=== PATIENT | male | born 1960 | race African-American/Black ===

== ENCOUNTER 2017-02-20 16:40 | Inpatient (IN) | payer OTHER ==
[2017-02-20 19:07] VITALS: BMI 29.1
--- NOTE | 2017-02-20 19:49 | HP ---
COWS - Scale Resting Pulse: 2= [place] 101-120 Sweatin= Chills/Flushing Restless Observation: 3= Extraneous Movement Pupil Size: 0= Normal to Room Light Bone or Joint Aches: 2= Severe Diffuse Aches Runny Nose/ Eye Tearin= Runny Nose/Eyes GI Upset > 30mins: 2= Nausea/Diarrhea Tremor Observation: 2= Slight Tremor Visible Yawning Observation: 0= None Anxiety or Irritability: 2=Irritable/Anxious Goose Flesh Skin: 0=Smooth Skin COWS Score: 16 CIWA Score - CIWA Score Nausea/Vomitin-Mild Nausea/No Vomiting Muscle Tremors: 4-Moderate,w/Arms Extend Anxiety: 4-Mod. Anxious/Guarded Agitation: 4-Moderately Restless Paroxysmal Sweats: 1-Minimal Palms Moist Orientation: 1-Uncertain about Date Tacttile Disturbances: 0-None Auditory Disturbances: 0-None Visual Disturbances: 0-None Headache: 1-Very Mild CIWA-Ar Total Score: 16 Admission ROS BHS - HPI Chief Complaint: WITHDRAWAL SX Allergies/Adverse Reactions: Allergies Allergy/AdvReac Type Severity Reaction Status Date / Time No Known Allergies Allergy Verified 02/20/17 20:06 History of Present Illness: 56 YEARS OLD MALE WITH LONG HISTORY OF ALCOHOL OPIUM NICOTINE DEPENDENCE LEFT KNEE SWELLING X "WEEKS" POSITIVE PPD DEPRESSION IS ADMITTED TO DETOX Exam Limitations: No Limitations - Ebola screening Have you traveled outside of the country in the last 21 days: No Have you had contact with anyone from an Ebola affected area: No Have you been sick,other than usual withdrawal symptoms: No Do you have a fever: No - Review of Systems Constitutional: Chills, Changes in sleep, Weight Stable EENT: reports: Blurred Vision (LEFT EYE "STROKE" 2009), Dental Problems ( DENTURE UPPER LOWER AT HOME) Respiratory: reports: No Symptoms reported Cardiac: reports: No Symptoms Reported GI: reports: Nausea, Poor Fluid Intake, Abdominal cramping : reports: No Symptoms Reported Musculoskeletal: reports: Joint Pain (LEFT KNEE) Integumentary: reports: Dryness Neuro: reports: Tremors Endocrine: reports: No Symptoms Reported Hematology: reports: No Symptoms Reported Psychiatric: reports: Judgement Intact, Orientated x3, Depressed Other Systems: Reviewed and Negative Patient History - Patient Medical History Hx Anemia: No Hx Asthma: No Hx Chronic Obstructive Pulmonary Disease (COPD): No Hx Cancer: No Hx Cardiac Disorders: No Hx Congestive Heart Failure: No Hx Hypertension: No Hx Hypercholesterolemia: No Hx Pacemaker: No HX Cerebrovascular Accident: No Hx Seizures: No Hx Dementia: No Hx Diabetes: No Hx Gastrointestinal Disorders: Yes Hx Liver Disease: No Hx Genitourinary Disorders: No Hx Sexually Transmitted Disorders: No Hx Renal Disease (ESRD): No Hx Thyroid Disease: No Hx Human Immunodeficiency Virus (HIV): No Hx Hepatitis C: No Hx Depression: Yes Hx Suicide Attempt: No Hx Bipolar Disorder: No Hx Schizophrenia: No - Patient Surgical History Past Surgical History: No - PPD History Previous Implant?: Yes Documented Results: Positive w/o proof Implanted On Prior [facility] Admission?: No PPD to be Administered?: No - Smoking Cessation Smoking history: Current every day smoker Have you smoked in the past 12 months: Yes Aproximately how many cigarettes per day: 10 Cigars Per Day: 0 Hx Chewing Tobacco Use: No Initiated information on smoking cessation: Yes 'Breaking Loose' booklet given: 02/20/17 - Substance & Tx. History Hx Alcohol Use: Yes Hx Substance Use: Yes Substance Use Type: Alcohol, Cocaine, Opiates Hx Substance Use Treatment: No - Substances Abused Alcohol Route: Oral Frequency: Daily Amount used: 24OZX7+64OZ VOLKA Age of first use: 24 Date of Last Use: 02/20/17 Heroin Route: Inhalation Frequency: Daily Amount used: 9 BAGS Age of first use: 23 Date of Last Use: 02/20/17 Family Disease History - Family Disease History Family Disease History: Heart Disease: Mother, [place]: Father (), Brother, Other: Father Admission Physical Exam S - Vital Signs Vital Signs: Vital Signs - 24 hr 02/20/17 19:03 Temperature 99.1 F Pulse Rate 102 H Respiratory 20 Rate Blood Pressure 164/90 - Physical General Appearance: Yes: Appropriately Dressed, Moderate Distress, Obese, Tremorous, Irritable, Sweating, Anxious HEENTM: Yes: Hearing grossly Normal, Normal ENT Inspection, Normocephalic, Normal Voice Respiratory: Yes: Chest Non-Tender, Lungs Clear, Normal Breath Sounds, No Respiratory Distress, No Accessory Muscle Use Neck: Yes: Supple, Trachea in good position Breast: Yes: Breasts Symetrical Cardiology: Yes: Regular Rhythm, S1, S2, Tachycardia Abdominal: Yes: Non Tender, Soft Genitourinary: Yes: Within Normal Limits Back: Yes: Normal Inspection Musculoskeletal: Yes: full range of Motion, Gait Steady, Back pain, Muscle Pain Extremities: Yes: Normal Inspection, Normal Range of Motion, Non-Tender, Tremors Neurological: Yes: Fully Oriented, Alert, Motor Strength 5/5, Normal Response, Depressed Affect Integumentary: Yes: Warm Lymphatic: Yes: Within Normal Limits - Diagnostic (1) Alcohol dependence with uncomplicated withdrawal Current Visit: Yes Status: Acute (2) Opioid dependence with withdrawal Current Visit: Yes Status: Acute (3) Nicotine dependence Current Visit: Yes Status: Acute Qualifiers: Nicotine product type: cigarettes Substance use status: in withdrawal Qualified Code(s): F17.213 - Nicotine dependence, cigarettes, with withdrawal (4) Positive PPD, treated Current Visit: Yes Status: Resolved (5) Dry skin dermatitis Current Visit: Yes Status: Chronic (6) Chronic pain of right knee Current Visit: Yes Status: Chronic (7) Depression (emotion) Current Visit: Yes Status: Suspected Qualifiers: Depression Type: dysthymia Qualified Code(s): F34.1 - Dysthymic disorder Cleared for Admission [facility] - Detox or Rehab [facility] Level of Care: Medically Managed Detox Regimen/Protocol: Methadone/Librium [facility] Breath Alcohol Content Breath Alcohol Content: 0 Urine Drug Screen - Results Drug Screen Negative: No Urine Drug Screen Results: ALBIN-Cocaine, OPI-Opiates, MTD-Methadone
[2017-02-20] MEDS ORDERED: guaiFENesin/D-METHORPHAN HB 10 ML UNIT-DOSE CUPS PO PRN (20:19)
[2017-02-20] MEDS ORDERED: ACETAMINOPHEN 325 MG TABLET (FP) PO PRN (20:19)
[2017-02-20] MEDS ORDERED: METHADONE HCL 10 MG TABLET (FOR DETOX USE ONLY) PO ONE ×2 (20:19→23:00)
[2017-02-20] MEDS ORDERED: NICOTINE POLACRILEX 2 MG GUM BUC PRN (20:19)
[2017-02-20] MEDS ORDERED: MENTHOL/PHENOL 1 EACH UD MM PRN (20:19)
[2017-02-20] MEDS ORDERED: P-EPHED 60MG/TRIPROLIDI 2.5MG TABLET PO PRN (20:19)
[2017-02-20] MEDS ORDERED: MAG HYDROX/AL HYDROX/SIMETH 30 ML UNIT-DOSE CUP PO PRN (20:19)
[2017-02-20] MEDS ORDERED: LOPERAMIDE HCL 2 MG CAPSULE PO PRN (20:19)
[2017-02-20] MEDS ORDERED: MAGNESIUM CITRATE 300 ML BOTTLE PO PRN (20:19)
[2017-02-20] MEDS ORDERED: MAGNESIUM HYDROX 2400MG/30ML ORAL SUSPENSION 30 ML CUP PO PRN (20:19)
[2017-02-20] MEDS ORDERED: COLLOIDAL OATMEAL 1 BAR EACH TP PRN (20:24)
[2017-02-20] MEDS: RANITIDINE HCL 150 MG TABLET (FP) PO SCH (22:02)
[2017-02-20] MEDS: THIAMINE HCL 100 MG TABLET (FP) PO SCH (22:02)
[2017-02-20] MEDS: diphenhydrAMINE HCL 50 MG CAPSULE PO PRN (22:03)
[2017-02-20] MEDS: chlordiazePOXIDE HCL 25 MG CAPSULE PO SCH (22:03)
[2017-02-20] MEDS: MINERAL OIL/PETROLAT/WATER TOPICAL CREAM 113 GM JAR TP SCH (23:05)
[2017-02-20] MEDS: CLOTRIMAZOLE 1% CREAM 15 GM TUBE TP SCH (23:05)
[2017-02-20 23:23] LABS: URINE APPEARANCE CLEAR; URINE BILIRUBIN NEGATIVE (NEGATIVE); URINE BLOOD NEGATIVE (NEGATIVE); URINE COLOR STRAW; URINE GLUCOSE (UA) NEGATIVE (NEGATIVE); URINE KETONE NEGATIVE (NEGATIVE); URINE LEUK ESTERASE NEGATIVE (NEGATIVE); URINE NITRITE NEGATIVE (NEGATIVE); URINE PROTEIN NEGATIVE (NEGATIVE); URINE UROBILINOGEN NEGATIVE E.U./dl (0.2-1.0)
[2017-02-21] MEDS: chlordiazePOXIDE HCL 25 MG CAPSULE PO SCH ×4 (05:38→22:42)
[2017-02-21 09:46] LABS: MCH 27.9 pg (25.7-33.7); MCHC 32.9 g/dl (32.0-35.9); MEAN CELL VOLUME 84.8 fl (80-96); MEAN PLT VOLUME 7.7 fl (7.5-11.1); PLATELET COUNT 301 K/MM3 (134-434); RDW 13.5 % (11.9-15.9); WHITE BLOOD COUNT 4.3 K/mm3 (4.0-10.0)
[2017-02-21 09:54] LABS: ALBUMIN 3.1 g/dl (3.4-5.0); ANION GAP 6 (8-16); BILIRUBIN,TOTAL 0.5 mg/dL (0.2-1.0); CALCIUM 8.7 mg/dL (8.5-10.1); CO2 31 mmol/L (21-32); CREATININE 0.8 mg/dL (0.7-1.3); GLUCOSE,RANDOM 80 mg/dL (74-106); SGOT/AST 19 U/L (15-37); SGPT/ALT 18 U/L (12-78); TOT PROT 6.5 g/dl (6.4-8.2)
[2017-02-21 09:55] LABS: ALK PHOS 103 U/L (45-117)
[2017-02-21] MEDS ORDERED: METHADONE HCL 10 MG TABLET (FOR DETOX USE ONLY) PO SCH (10:00)
[2017-02-21] MEDS: NICOTINE 14 MG/24 HOURS TOPICAL PATCH TD SCH (10:46)
[2017-02-21] MEDS: PRENATAL VITAMINS W/ FOLIC ACID TABLET (FP) PO SCH (10:46)
[2017-02-21] MEDS: RANITIDINE HCL 150 MG TABLET (FP) PO SCH ×2 (10:46→22:55)
--- NOTE | 2017-02-21 11:35 | PN ---
[facility] CIWA - CIWA Score Nausea/Vomitin Muscle Tremors: 3 Anxiety: 3 Agitation: 3 Paroxysmal Sweats: 1-Minimal Palms Moist Orientation: 0-Oriented Tacttile Disturbances: 1-Very Mild Itch/Numbness Auditory Disturbances: 1-Very Mild Visual Disturbances: 1-Very Mild Sensitivity Headache: 2-Mild CIWA-Ar Total Score: 18 [facility] COWS - Scale Resting Pulse: 1= [place] 81-100 Sweatin= Chills/Flushing Restless Observation: 3= Extraneous Movement Pupil Size: 1= Pupils >than Normal Bone or Joint Aches: 2= Severe Diffuse Aches Runny Nose/ Eye Tearin= Runny Nose/Eyes GI Upset > 30mins: 3= Vomiting/Diarrhea Tremor Observation of Outstretched Hands: 2= Slight Tremor Visible Yawning Observation: 1= 1-2x During Session Anxiety or Irritability: 2=Irritable/Anxious Goose Flesh Skin: 0=Smooth Skin COWS Score: 18 [facility] Progress Note (SOAP) Subjective: ALERT,IRRITABLE,ANXIOUS,INTERRUPTED SLEEP,TREMOR,PAIN IN THE BODY AND BACK Objective: 02/21/17 11:33 Vital Signs Temperature 96.1 F L 02/21/17 09:34 Pulse Rate 84 02/21/17 09:34 Respiratory Rate 18 02/21/17 09:34 Blood Pressure 145/79 02/21/17 09:34 O2 Sat by Pulse Oximetry (%) EKG NSR 02/21/17 11:33 Laboratory Last Values WBC 4.3 K/mm3 (4.0-10.0) 02/21/17 07:00 RBC 4.86 M/mm3 (4.00-5.60) 02/21/17 07:00 Hgb 13.6 GM/dL (11.7-16.9) 02/21/17 07:00 Hct 41.2 % (35.4-49) 02/21/17 07:00 MCV 84.8 fl (80-96) 02/21/17 07:00 MCHC 32.9 g/dl (32.0-35.9) 02/21/17 07:00 RDW 13.5 % (11.9-15.9) 02/21/17 07:00 Plt Count 301 K/MM3 (134-434) 02/21/17 07:00 MPV 7.7 fl (7.5-11.1) 02/21/17 07:00 Sodium 138 mmol/L (136-145) 02/21/17 07:00 Potassium 4.2 mmol/L (3.5-5.1) 02/21/17 07:00 Chloride 101 mmol/L (98-107) 02/21/17 07:00 Carbon Dioxide 31 mmol/L (21-32) 02/21/17 07:00 Anion Gap 6 (8-16) L 02/21/17 07:00 BUN 10 mg/dL (7-18) 02/21/17 07:00 Creatinine 0.8 mg/dL (0.7-1.3) 02/21/17 07:00 Creat Clearance w eGFR > 60 (>60) 02/21/17 07:00 Random Glucose 80 mg/dL (74-106) 02/21/17 07:00 Calcium 8.7 mg/dL (8.5-10.1) 02/21/17 07:00 Total Bilirubin 0.5 mg/dL (0.2-1.0) 02/21/17 07:00 AST 19 U/L (15-37) 02/21/17 07:00 ALT 18 U/L (12-78) 02/21/17 07:00 Alkaline Phosphatase 103 U/L (45-117) 02/21/17 07:00 Total Protein 6.5 g/dl (6.4-8.2) 02/21/17 07:00 Albumin 3.1 g/dl (3.4-5.0) L 02/21/17 07:00 Urine Color Straw 02/20/17 23:05 Urine Appearance Clear 02/20/17 23:05 Urine pH 7.0 (5.0-8.0) 02/20/17 23:05 Ur Specific [place] 1.015 (1.005-1.025) 02/20/17 23:05 Urine Protein Negative (NEGATIVE) 02/20/17 23:05 Urine Glucose (UA) Negative (NEGATIVE) 02/20/17 23:05 Urine Ketones Negative (NEGATIVE) 02/20/17 23:05 Urine Blood Negative (NEGATIVE) 02/20/17 23:05 Urine Nitrite Negative (NEGATIVE) 02/20/17 23:05 Urine Bilirubin Negative (NEGATIVE) 02/20/17 23:05 Urine Urobilinogen Negative E.U./dl (0.2-1.0) 02/20/17 23:05 Ur Leukocyte Esterase Negative (NEGATIVE) 02/20/17 23:05 Assessment: 02/21/17 11:34 WITHDRAWAL SYMPTOM Plan: CONTINUE DETOX
--- NOTE | 2017-02-21 14:46 | EKG ---
Test Reason : Blood Pressure : / mmHG Vent. Rate : 072 BPM Atrial Rate : 072 BPM P-R Int : 156 ms QRS Dur : 102 ms QT Int : 390 ms P-R-T Axes : 071 035 036 degrees QTc Int : 427 ms NORMAL SINUS RHYTHM POSSIBLE LEFT ATRIAL ENLARGEMENT BORDERLINE ECG NO PREVIOUS ECGS AVAILABLE Confirmed by DEVIKA CHAPA, ARABELLA ([id number]) on 02/21/2017 2:46:21 PM Referred By: Steven Cunningham Confirmed By:ARABELLA FORTUNE MD
[2017-02-21] MEDS: CLOTRIMAZOLE 1% CREAM 15 GM TUBE TP SCH ×2 (15:37→22:55)
[2017-02-21] MEDS ORDERED: ONDANSETRON *ODT* 4 MG TABLET SL ONE (18:15)
[2017-02-21] MEDS: CYCLOBENZAPRINE HCL 10 MG TABLET (FP) PO PRN (22:42)
[2017-02-21] MEDS: cloNIDine HCL 0.1 MG TABLET PO SCH (22:42)
[2017-02-21] MEDS: AMMONIUM LACTATE 12% LOTION 225 GM BOTTLE TP PRN (22:45)
[2017-02-21] MEDS: MINERAL OIL/PETROLAT/WATER TOPICAL CREAM 113 GM JAR TP SCH (22:45)
[2017-02-21] MEDS: THIAMINE HCL 100 MG TABLET (FP) PO SCH (22:55)
[2017-02-22] MEDS: diphenhydrAMINE HCL 50 MG CAPSULE PO PRN (02:03)
[2017-02-22] MEDS: chlordiazePOXIDE HCL 25 MG CAPSULE PO PRN ×2 (02:03→15:22)
[2017-02-22] MEDS: chlordiazePOXIDE HCL 25 MG CAPSULE PO SCH ×3 (06:18→16:55)
--- NOTE | 2017-02-22 09:09 | CONSULT ---
[facility] Psychiatric Consult - Data Date of interview: 02/22/17 Admission source: [facility] Identifying data: This is 56 years old male with psychiatric hospitalization history intoxicated with: Alcohol, Opioids and Nicotine Substance Abuse History: - Smoking Cessation. Smoking history: Current every day smoker. Have you smoked in the past 12 months: Yes. Aproximately how many cigarettes per day: 10. Cigars Per Day: 0. Hx Chewing Tobacco Use: No. Initiated information on smoking cessation: Yes. 'Breaking Loose' booklet given : 02/20/17. - Substance & Tx. History. Hx Alcohol Use: Yes. Hx Substance Use : Yes. Substance Use Type: Alcohol, Cocaine, Opiates. Hx Substance Use Treatment: No. - Substances Abused. Alcohol. Route: Oral. Frequency: Daily. Amount used: 24OZX7+64OZ VOLKA. Age of first use: 24. Date of Last Use : 02/20/17. Heroin. Route: Inhalation. Frequency: Daily. Amount used: 9 BAGS. Age of first use: 23. Date of Last Use: 02/20/17 Medical History: PPD+ history Psychiatric History: Patient reports history of depression with most recent psychiatric admission [facility], deniesa suicidal history, reports no medicatione taking prior to admission Physical/Sexual Abuse/Trauma History: Denies Additional Comment: Observation. Detox Unit Care Protocol Mental Status Exam - Mental Status Exam Alert and Oriented to: Person Cognitive Function: Fair Patient Appearance: Unkempt Mood: Sad Affect: Mood Congruent Patient Behavior: Cooperative Speech Pattern: Appropriate Voice Loudness: Mildly Soft/Quiet Thought Process: Circumstantial Thought Disorder: Being Controlled Hallucinations: Denies Suicidal Ideation: Denies Homicidal Ideation: Denies Insight/Judgement: Fair Sleep: Difficulty falling asleep Appetite: Fair Muscle strength/Tone: Mild Hypotonicity Gait/Station: Shuffling Additional Comments: Observation. Detox Unit Care Protocol Psychiatric Findings - Problem List ([place] 1, 2,3) (1) Alcohol dependence with uncomplicated withdrawal Current Visit: Yes Status: Acute (2) Nicotine dependence Current Visit: Yes Status: Acute Qualifiers: Nicotine product type: cigarettes Substance use status: in withdrawal Qualified Code(s): F17.213 - Nicotine dependence, cigarettes, with withdrawal (3) Opioid dependence with withdrawal Current Visit: Yes Status: Acute (4) Drug-induced mood disorder Current Visit: Yes Status: Acute - Initial Treatment Plan Initial Treatment Plan: Observation. Detox Unit Care Protocol
--- NOTE | 2017-02-22 09:50 | PN ---
[facility] CIWA - CIWA Score Nausea/Vomitin Muscle Tremors: 3 Anxiety: 2 Agitation: 2 Paroxysmal Sweats: 1-Minimal Palms Moist Orientation: 0-Oriented Tacttile Disturbances: 1-Very Mild Itch/Numbness Auditory Disturbances: 1-Very Mild Visual Disturbances: 1-Very Mild Sensitivity Headache: 2-Mild CIWA-Ar Total Score: 16 [facility]HS COWS - Scale Resting Pulse: 0= [place] 80 or Below Sweatin= Chills/Flushing Restless Observation: 3= Extraneous Movement Pupil Size: 1= Pupils >than Normal Bone or Joint Aches: 2= Severe Diffuse Aches Runny Nose/ Eye Tearin= Runny Nose/Eyes GI Upset > 30mins: 2= Nausea/Diarrhea Tremor Observation of Outstretched Hands: 2= Slight Tremor Visible Yawning Observation: 1= 1-2x During Session Anxiety or Irritability: 2=Irritable/Anxious Goose Flesh Skin: 0=Smooth Skin COWS Score: 16 [facility] Progress Note (SOAP) Subjective: ALERT,IRRITABLE,ANXIOUS,INTERRUPTED SLEEP,TREMOR,PAIN IN THE BODY AND BACK Objective: 02/22/17 09:49 Vital Signs Temperature 97.5 F L 02/22/17 09:43 Pulse Rate 82 02/22/17 09:43 Respiratory Rate 16 02/22/17 09:43 Blood Pressure 128/89 02/22/17 09:43 O2 Sat by Pulse Oximetry (%) Laboratory Last Values WBC 4.3 K/mm3 (4.0-10.0) 02/21/17 07:00 RBC 4.86 M/mm3 (4.00-5.60) 02/21/17 07:00 Hgb 13.6 GM/dL (11.7-16.9) 02/21/17 07:00 Hct 41.2 % (35.4-49) 02/21/17 07:00 MCV 84.8 fl (80-96) 02/21/17 07:00 MCHC 32.9 g/dl (32.0-35.9) 02/21/17 07:00 RDW 13.5 % (11.9-15.9) 02/21/17 07:00 Plt Count 301 K/MM3 (134-434) 02/21/17 07:00 MPV 7.7 fl (7.5-11.1) 02/21/17 07:00 Sodium 138 mmol/L (136-145) 02/21/17 07:00 Potassium 4.2 mmol/L (3.5-5.1) 02/21/17 07:00 Chloride 101 mmol/L (98-107) 02/21/17 07:00 Carbon Dioxide 31 mmol/L (21-32) 02/21/17 07:00 Anion Gap 6 (8-16) L 02/21/17 07:00 BUN 10 mg/dL (7-18) 02/21/17 07:00 Creatinine 0.8 mg/dL (0.7-1.3) 02/21/17 07:00 Creat Clearance w eGFR > 60 (>60) 02/21/17 07:00 Random Glucose 80 mg/dL (74-106) 02/21/17 07:00 Calcium 8.7 mg/dL (8.5-10.1) 02/21/17 07:00 Total Bilirubin 0.5 mg/dL (0.2-1.0) 02/21/17 07:00 AST 19 U/L (15-37) 02/21/17 07:00 ALT 18 U/L (12-78) 02/21/17 07:00 Alkaline Phosphatase 103 U/L (45-117) 02/21/17 07:00 Total Protein 6.5 g/dl (6.4-8.2) 02/21/17 07:00 Albumin 3.1 g/dl (3.4-5.0) L 02/21/17 07:00 Urine Color Straw 02/20/17 23:05 Urine Appearance Clear 02/20/17 23:05 Urine pH 7.0 (5.0-8.0) 02/20/17 23:05 Ur Specific [place] 1.015 (1.005-1.025) 02/20/17 23:05 Urine Protein Negative (NEGATIVE) 02/20/17 23:05 Urine Glucose (UA) Negative (NEGATIVE) 02/20/17 23:05 Urine Ketones Negative (NEGATIVE) 02/20/17 23:05 Urine Blood Negative (NEGATIVE) 02/20/17 23:05 Urine Nitrite Negative (NEGATIVE) 02/20/17 23:05 Urine Bilirubin Negative (NEGATIVE) 02/20/17 23:05 Urine Urobilinogen Negative E.U./dl (0.2-1.0) 02/20/17 23:05 Ur Leukocyte Esterase Negative (NEGATIVE) 02/20/17 23:05 RPR Titer Nonreactive (NONREACTIVE) 02/21/17 07:00 Hepatitis C Antibody 0.1 s/co ratio (0.0-0.9) 02/20/17 07:00 Assessment: 02/22/17 09:49 WITHDRAWAL SYMPTOM Plan: CONTINUE DETOX
[2017-02-22] MEDS ORDERED: METHADONE HCL 5 MG TABLET (FOR DETOX USE ONLY) PO SCH (10:00)
[2017-02-22] MEDS: cloNIDine HCL 0.1 MG TABLET PO SCH ×2 (10:51→23:09)
[2017-02-22] MEDS: PRENATAL VITAMINS W/ FOLIC ACID TABLET (FP) PO SCH (10:51)
[2017-02-22] MEDS: CYCLOBENZAPRINE HCL 10 MG TABLET (FP) PO PRN ×2 (10:52→23:09)
[2017-02-22] MEDS ORDERED: METHADONE HCL 5 MG TABLET (FOR DETOX USE ONLY) PO ONE (10:52)
[2017-02-22] MEDS: CLOTRIMAZOLE 1% CREAM 15 GM TUBE TP SCH ×2 (10:52→23:15)
[2017-02-22] MEDS: NICOTINE 14 MG/24 HOURS TOPICAL PATCH TD SCH (10:53)
[2017-02-22] MEDS: RANITIDINE HCL 150 MG TABLET (FP) PO SCH ×2 (10:54→23:09)
[2017-02-22] MEDS: VITAMINS A AND D TOPICAL OINTMENT 60 GM TUBE TP SCH ×3 (13:39→23:44)
[2017-02-22] MEDS ORDERED: LIDOCAINE PATCH REMOVAL MC SCH (22:00)
[2017-02-22] MEDS: THIAMINE HCL 100 MG TABLET (FP) PO SCH (23:09)
[2017-02-22] MEDS: chlordiazePOXIDE 5 MG CAPSULE PO SCH (23:10)
[2017-02-22] MEDS: LIDOCAINE 5% TOPICAL PATCH TP SCH (23:43)
[2017-02-22] MEDS: MINERAL OIL/PETROLAT/WATER TOPICAL CREAM 113 GM JAR TP SCH (23:43)
[2017-02-23] MEDS: chlordiazePOXIDE 5 MG CAPSULE PO SCH ×3 (05:31→17:12)
[2017-02-23] MEDS: VITAMINS A AND D TOPICAL OINTMENT 60 GM TUBE TP SCH ×3 (05:32→17:11)
[2017-02-23] MEDS ORDERED: METHADONE HCL 10 MG TABLET (FOR DETOX USE ONLY) PO ONE (10:00)
[2017-02-23] MEDS: RANITIDINE HCL 150 MG TABLET (FP) PO SCH ×2 (10:30→22:49)
[2017-02-23] MEDS: PRENATAL VITAMINS W/ FOLIC ACID TABLET (FP) PO SCH (10:30)
[2017-02-23] MEDS: cloNIDine HCL 0.1 MG TABLET PO SCH ×2 (10:30→22:49)
[2017-02-23] MEDS: LIDOCAINE 5% TOPICAL PATCH TP SCH (10:31)
[2017-02-23] MEDS: AMMONIUM LACTATE 12% LOTION 225 GM BOTTLE TP PRN (10:34)
[2017-02-23] MEDS: NICOTINE 14 MG/24 HOURS TOPICAL PATCH TD SCH (11:10)
--- NOTE | 2017-02-23 12:25 | PN ---
[facility] Progress Note (SOAP) Subjective: ALERT,IRRITABLE,ANXIOUS,INTERRUPTED SLEEP,PAIN IN THE BODY AND BACK,PAIN IN BOTH KNEES ARTHRITIS Objective: 02/23/17 12:24 Vital Signs Temperature 97.7 F 02/23/17 06:00 Pulse Rate 110 H 02/23/17 06:00 Respiratory Rate 20 02/23/17 06:00 Blood Pressure 94/71 02/23/17 06:00 O2 Sat by Pulse Oximetry (%) Assessment: 02/23/17 12:24 WITHDRAWAL SYMPTOM Plan: CONTINUE DETOX,LIDODERM PATCH BOTH KNEES
[2017-02-23] MEDS ORDERED: LIDOCAINE 5% TOPICAL PATCH TP SCH (12:30)
[2017-02-23] MEDS: CLOTRIMAZOLE 1% CREAM 15 GM TUBE TP SCH ×2 (15:23→22:50)
[2017-02-23] MEDS ORDERED: LIDOCAINE PATCH REMOVAL MC SCH (22:00)
[2017-02-23] MEDS: THIAMINE HCL 100 MG TABLET (FP) PO SCH (22:49)
[2017-02-23] MEDS: diphenhydrAMINE HCL 50 MG CAPSULE PO PRN (22:49)
[2017-02-23] MEDS: chlordiazePOXIDE HCL 10 MG CAPSULE PO SCH (22:52)
[2017-02-23] MEDS: CYCLOBENZAPRINE HCL 10 MG TABLET (FP) PO PRN (22:52)
[2017-02-23] MEDS: MINERAL OIL/PETROLAT/WATER TOPICAL CREAM 113 GM JAR TP SCH (22:53)
[2017-02-24] MEDS: VITAMINS A AND D TOPICAL OINTMENT 60 GM TUBE TP SCH ×2 (00:23→06:16)
[2017-02-24] MEDS: diphenhydrAMINE HCL 50 MG CAPSULE PO PRN (01:22)
[2017-02-24] MEDS ORDERED: METHADONE HCL 5 MG TABLET (FOR DETOX USE ONLY) PO ONE (06:00)
[2017-02-24] MEDS: chlordiazePOXIDE HCL 10 MG CAPSULE PO SCH (06:14)
--- NOTE | 2017-02-24 08:22 | DS ---
[facility] Detox Discharge Summary Admission Date: 02/20/17 Discharge Date: 02/24/17 - History Present History: Alcohol Dependence, Opioid Dependence Additional Comments: FOLLOW UP WITH AFTER [facility] PROGRAM ARRANGEMENT AND PMD FOR MEDICAL PROBLEM Pertinent Past History: NICOTINE DEPENDENCE CHRONIC PAIN BOTH KNEES DRUG INDUCED MOOD DISORDER - Physical Exam Results Vital Signs: Vital Signs Temperature 97.9 F 02/24/17 06:00 Pulse Rate 69 02/24/17 06:00 Respiratory Rate 18 02/24/17 06:00 Blood Pressure 116/65 02/24/17 06:00 O2 Sat by Pulse Oximetry (%) Pertinent Admission Physical Exam Findings: WITHDRAWAL SYMPTOM - Treatment Hospital Course: Detox Protocol Followed, Detoxed Safely, Responded well, Discharged Condition Good Patient has Accepted a Rehab Referral to: DECLINED - Medication Discharge Medications: Ambulatory Orders Oxycodone HCl [Roxicodone -] 5 mg PO Q6H 02/20/17 - Diagnosis (1) Alcohol dependence with uncomplicated withdrawal Current Visit: Yes Status: Acute (2) Drug-induced mood disorder Current Visit: Yes Status: Acute (3) Nicotine dependence Current Visit: Yes Status: Acute Qualifiers: Nicotine product type: cigarettes Substance use status: in withdrawal Qualified Code(s): F17.213 - Nicotine dependence, cigarettes, with withdrawal (4) Opioid dependence with withdrawal Current Visit: Yes Status: Acute (5) Chronic pain of right knee Current Visit: Yes Status: Chronic - AMA Did Patient Leave Against Medical Advice: No
[2017-02-24] MEDS: cloNIDine HCL 0.1 MG TABLET PO SCH (09:33)
[2017-02-24] MEDS: RANITIDINE HCL 150 MG TABLET (FP) PO SCH (09:33)
[2017-02-24] MEDS: PRENATAL VITAMINS W/ FOLIC ACID TABLET (FP) PO SCH (09:33)
[2017-02-24] MEDS ORDERED: METHADONE HCL 10 MG TABLET (FOR DETOX USE ONLY) PO SCH (10:00)
[2017-02-24 10:46] VITALS: BP 106/72; PULSE 97; TEMP 97.7
[2017-02-25] MEDS ORDERED: METHADONE HCL 5 MG TABLET (FOR DETOX USE ONLY) PO SCH (06:00)
== END 2017-02-24 09:42 | disposition home or self-care (01) | DRG 773 ==
LOC: YASAS 16:40 → Y6N 21:21
PROVIDERS: ADMIT Internal Medicine; ATTEND Internal Medicine
PROC: HZ2ZZZZ Detoxification Services for Substance Abuse Treatment (ICD-10-PCS; principal; 2017-02-24)
DX: F11.23 Opioid dependence with withdrawal (principal); F10.230 Alcohol dependence with withdrawal, uncomplicated; F17.213 Nicotine dependence, cigarettes, with withdrawal; F19.24 Other psychoactive substance dependence with psychoactive substance-induced mood disorder; F34.1 Dysthymic disorder; L85.3 Xerosis cutis; R76.11 Nonspecific reaction to tuberculin skin test without active tuberculosis; M25.561 Pain in right knee; G89.29 Other chronic pain
CPT/HCPCS: 36415; 71020-TC; 80053; 81003; 85027; 86593; 86803; 93005; 93010

== ENCOUNTER 2017-06-27 09:11 | Inpatient (IN) | payer OTHER ==
[2017-06-27 11:21] VITALS: BMI 29.2
--- NOTE | 2017-06-27 12:03 | HP ---
COWS - Scale Resting Pulse: 0= [place] 80 or Below Sweatin= Chills/Flushing Restless Observation: 3= Extraneous Movement Pupil Size: 2= Moderately Dilated Bone or Joint Aches: 2= Severe Diffuse Aches Runny Nose/ Eye Tearin= Runny Nose/Eyes GI Upset > 30mins: 3= Vomiting/Diarrhea Tremor Observation: 2= Slight Tremor Visible Yawning Observation: 2= >3x During Session Anxiety or Irritability: 2=Irritable/Anxious Goose Flesh Skin: 0=Smooth Skin COWS Score: 19 CIWA Score - CIWA Score Nausea/Vomitin Muscle Tremors: 3 Anxiety: 3 Agitation: 3 Paroxysmal Sweats: 2 Orientation: 0-Oriented Tacttile Disturbances: 2-Mild Itch/Numbness/Burn Auditory Disturbances: 2-Mild Harshness/Frighten Visual Disturbances: 1-Very Mild Sensitivity Headache: 2-Mild CIWA-Ar Total Score: 21 Admission ROS [facility] - HPI Chief Complaint: i need help to stop using heroin,alcohol,xanax,cocaine Allergies/Adverse Reactions: Allergies Allergy/AdvReac Type Severity Reaction Status Date / Time No Known Allergies Allergy Verified 06/27/17 11:25 History of Present Illness: this 57 years old male with heroin,alcohol,xanax and cocaine dependence,seeking detox,last treatment 02/20/17 to 02/24/17 nicotine dependence longest period of sobriety 3 years - Ebola screening Have you traveled outside of the country in the last 21 days: No Have you been sick,other than usual withdrawal symptoms: No - Review of Systems Constitutional: Chills, Loss of Appetite, Malaise, Night Sweats, Changes in sleep, Weakness, Unintentional Wgt. Loss EENT: reports: Tearing, Nose Congestion Respiratory: reports: No Symptoms reported Cardiac: reports: No Symptoms Reported GI: reports: Diarrhea, Nausea, Poor Fluid Intake, Vomiting : reports: No Symptoms Reported Musculoskeletal: reports: Back Pain, Muscle Pain, Joint Stiffness Integumentary: reports: Dryness Neuro: reports: Headache, Tremors Endocrine: reports: No Symptoms Reported Hematology: reports: No Symptoms Reported Psychiatric: reports: No Sypmtoms Reported, Judgement Intact, Mood/Affect Appropiate Patient History - Patient Medical History Hx Anemia: No Hx Asthma: No Hx Chronic Obstructive Pulmonary Disease (COPD): No Hx Cancer: No Hx Cardiac Disorders: No Hx Congestive Heart Failure: No Hx Hypertension: No Hx Hypercholesterolemia: No Hx Pacemaker: No HX Cerebrovascular Accident: No Hx Seizures: No Hx Dementia: No Hx Diabetes: No Hx Gastrointestinal Disorders: Yes (acid reflux) Hx Liver Disease: No Hx Genitourinary Disorders: No Hx Sexually Transmitted Disorders: No Hx Renal Disease (ESRD): No Hx Thyroid Disease: No Hx Human Immunodeficiency Virus (HIV): No (last tested 02/18) Hx Hepatitis C: No Hx Depression: No Hx Suicide Attempt: No Hx Bipolar Disorder: No Hx Schizophrenia: No Other Medical History: no suicidal,no homicidal - Patient Surgical History Past Surgical History: No Hx Neurologic Surgery: No Hx Cataract Extraction: No Hx Cardiac Surgery: No Hx Lung Surgery: No Hx Breast Surgery: No Hx Breast Biopsy: No Hx Abdominal Surgery: No Hx Appendectomy: No Hx Cholecystectomy: No Hx Genitourinary Surgery: No Hx Section: No Hx Orthopedic Surgery: Yes (both feet) Other Surgical History: repair of archillis tendon left 2015 Anesthesia Reaction: No - PPD History Previous Implant?: Yes Documented Results: Positive w/o proof Implanted On Prior [facility] Admission?: No PPD to be Administered?: No - Smoking Cessation Smoking history: Current every day smoker Have you smoked in the past 12 months: Yes Aproximately how many cigarettes per day: 10 Cigars Per Day: 0 Hx Chewing Tobacco Use: No Initiated information on smoking cessation: Yes 'Breaking Loose' booklet given: 06/27/17 - Substance & Tx. History Hx Alcohol Use: Yes Hx Substance Use: Yes Substance Use Type: Alcohol, Cocaine, Heroin, Tranquilizers - Substances Abused Heroin Route: Inhalation Frequency: Daily Amount used: 10 bags Age of first use: 26 Date of Last Use: 06/26/17 Cocaine Route: Inhalation Frequency: Daily Amount used: $30-40 Age of first use: 19 Date of Last Use: 06/26/17 Alcohol-beer/vodka Route: Oral Frequency: Daily Amount used: 2-6 pks./2 pts. Age of first use: 14 Date of Last Use: 06/27/17 Xanax Route: Oral Frequency: 3-6 times per week Amount used: 2 mg. Age of first use: 56 Date of Last Use: 06/25/17 Family Disease History - Family Disease History Family Disease History: Heart Disease: Mother, [place]: Father (), Brother, Other: Father Admission Physical Exam [facility] - Vital Signs Vital Signs: Vital Signs - 24 hr 06/27/17 11:19 Temperature 97.4 F L Pulse Rate 69 Respiratory 20 Rate Blood Pressure 123/74 - Physical General Appearance: Yes: Moderate Distress, Tremorous, Irritable, Sweating, Anxious HEENTM: Yes: Normal ENT Inspection, MACK, Pharynx Normal Respiratory: Yes: Lungs Clear, Normal Breath Sounds, No Respiratory Distress Neck: Yes: Within Normal Limits, Supple, Trachea in good position Breast: Yes: Within Normal Limits Cardiology: Yes: Within Normal Limits, Regular Rhythm, Regular Rate, S1, S2 Abdominal: Yes: Within Normal Limits, Normal Bowel Sounds, Non Tender, Flat, Soft Genitourinary: Yes: Within Normal Limits Back: Yes: Within Normal Limits, Muscle Spasm Musculoskeletal: Yes: full range of Motion, Back pain, Muscle Pain Extremities: Yes: Within Normal Limits, Normal Range of Motion, Tremors Neurological: Yes: citrus fruit colorer II-XII NML intact, Fully Oriented, Alert, Motor Strength 5/5 Integumentary: Yes: Dry Lymphatic: Yes: Within Normal Limits - Diagnostic (1) Alcohol dependence with uncomplicated withdrawal Current Visit: Yes Status: Acute (2) Opioid dependence with withdrawal Current Visit: Yes Status: Acute (3) Uncomplicated sedative, hypnotic or anxiolytic withdrawal Current Visit: Yes Status: Acute (4) Cocaine dependence Current Visit: Yes Status: Acute (5) Nicotine dependence Current Visit: Yes Status: Acute Qualifiers: Nicotine product type: cigarettes Substance use status: in withdrawal Qualified Code(s): F17.213 - Nicotine dependence, cigarettes, with withdrawal; F17.213 - Nicotine dependence, cigarettes, with withdrawal (6) Dry skin dermatitis Current Visit: No Status: Chronic (7) Depression (emotion) Current Visit: No Status: Suspected Qualifiers: Depression Type: dysthymia Qualified Code(s): F34.1 - Dysthymic disorder; F34.1 - Dysthymic disorder; F34.1 - Dysthymic disorder (8) Insomnia secondary to depression with anxiety Current Visit: Yes Status: Acute (9) Weight loss Current Visit: Yes Status: Acute Cleared for Admission [facility] - Detox or Rehab [facility] Level of Care: Medically Managed Detox Regimen/Protocol: Methadone/Librium [facility] Breath Alcohol Content Breath Alcohol Content: 0 Urine Drug Screen - Results Drug Screen Negative: No Urine Drug Screen Results: ALBIN-Cocaine, OPI-Opiates, BZO-Benzodiazepines, OXY- Oxycodone
[2017-06-27] MEDS ORDERED: IBUPROFEN 400 MG TABLET (FP) PO PRN (12:19)
[2017-06-27] MEDS ORDERED: MAGNESIUM HYDROX 2400MG/30ML ORAL SUSPENSION 30 ML CUP PO PRN (12:19)
[2017-06-27] MEDS ORDERED: ACETAMINOPHEN 325 MG TABLET (FP) PO PRN (12:19)
[2017-06-27] MEDS ORDERED: P-EPHED 60MG/TRIPROLIDI 2.5MG TABLET PO PRN (12:19)
[2017-06-27] MEDS ORDERED: MENTHOL/PHENOL 1 EACH UD MM PRN (12:19)
[2017-06-27] MEDS ORDERED: MAGNESIUM CITRATE 300 ML BOTTLE PO PRN (12:19)
[2017-06-27] MEDS ORDERED: guaiFENesin/D-METHORPHAN HB 10 ML UNIT-DOSE CUPS PO PRN (12:19)
[2017-06-27] MEDS ORDERED: chlordiazePOXIDE HCL 25 MG CAPSULE PO PRN (12:19)
[2017-06-27] MEDS ORDERED: MAG HYDROX/AL HYDROX/SIMETH 30 ML UNIT-DOSE CUP PO PRN (12:19)
[2017-06-27] MEDS ORDERED: LOPERAMIDE HCL 2 MG CAPSULE PO PRN (12:19)
[2017-06-27] MEDS ORDERED: METHADONE HCL 10 MG TABLET (FOR DETOX USE ONLY) PO ONE ×2 (12:31→23:00)
[2017-06-27] MEDS ORDERED: chlordiazePOXIDE HCL 25 MG CAPSULE PO ONE (12:31)
[2017-06-27] MEDS: NICOTINE 21 MG/24 HOURS TOPICAL PATCH TD SCH (13:31)
[2017-06-27] MEDS: chlordiazePOXIDE HCL 25 MG CAPSULE PO SCH ×2 (17:33→22:37)
[2017-06-27 17:55] LABS: URINE APPEARANCE CLEAR; URINE BILIRUBIN NEGATIVE (NEGATIVE); URINE BLOOD NEGATIVE (NEGATIVE); URINE COLOR STRAW; URINE GLUCOSE (UA) NEGATIVE (NEGATIVE); URINE KETONE NEGATIVE (NEGATIVE); URINE NITRITE NEGATIVE (NEGATIVE); URINE PROTEIN NEGATIVE (NEGATIVE); URINE UROBILINOGEN NEGATIVE mg/dL (0.2-1.0)
--- NOTE | 2017-06-27 20:19 | EKG ---
Test Reason : Blood Pressure : / mmHG Vent. Rate : 060 BPM Atrial Rate : 060 BPM P-R Int : 146 ms QRS Dur : 108 ms QT Int : 422 ms P-R-T Axes : 057 045 029 degrees QTc Int : 422 ms NORMAL SINUS RHYTHM NORMAL ECG WHEN COMPARED WITH ECG OF 20-FEB-2017 20:56, NO SIGNIFICANT CHANGE WAS FOUND Confirmed by GONZÁLEZ TRIPLETT MD ([id number]) on 06/27/2017 8:19:22 PM Referred By: Confirmed By:GONZÁLEZ TRIPLETT MD
[2017-06-27 20:26] LABS: URINE LEUK ESTERASE Negative (NEGATIVE)
[2017-06-27] MEDS: THIAMINE HCL 100 MG TABLET (FP) PO SCH (22:37)
[2017-06-28] MEDS: diphenhydrAMINE HCL 50 MG CAPSULE PO PRN ×2 (00:26→22:25)
[2017-06-28] MEDS: chlordiazePOXIDE HCL 25 MG CAPSULE PO SCH (05:31)
[2017-06-28 09:02] LABS: HIV 1 & 2 AB NEGATIVE; HIV 1 AGp24 NEGATIVE
[2017-06-28 09:57] LABS: MCH 27.3 pg (25.7-33.7); MCHC 32.7 g/dl (32.0-35.9); MEAN CELL VOLUME 83.5 fl (80-96); MEAN PLT VOLUME 8.8 fl (7.5-11.1); PLATELET COUNT 294 K/MM3 (134-434); WHITE BLOOD COUNT 4.6 K/mm3 (4.0-10.0)
[2017-06-28] MEDS ORDERED: METHADONE HCL 10 MG TABLET (FOR DETOX USE ONLY) PO SCH (10:00)
[2017-06-28] MEDS: NICOTINE 21 MG/24 HOURS TOPICAL PATCH TD SCH (10:05)
[2017-06-28] MEDS: PRENATAL VITAMINS W/ FOLIC ACID TABLET (FP) PO SCH (10:06)
[2017-06-28] MEDS: diazePAM 5 MG TABLET PO ONE (10:08)
[2017-06-28 10:38] LABS: ALBUMIN 3.6 g/dl (3.4-5.0); ALK PHOS 131 U/L (45-117); ANION GAP 8 (8-16); BILIRUBIN,TOTAL 0.6 mg/dL (0.2-1.0); CALCIUM 8.6 mg/dL (8.5-10.1); CO2 27 mmol/L (21-32); CREATININE 0.9 mg/dL (0.7-1.3); GLUCOSE,RANDOM 132 mg/dL (74-106); SGOT/AST 26 U/L (15-37); SGPT/ALT 25 U/L (12-78); TOT PROT 7.5 g/dl (6.4-8.2)
[2017-06-28] MEDS ORDERED: TRIMETHOBENZAMIDE HCL 200MG/2ML INJ IM ONE (10:57)
[2017-06-28] MEDS: AMMONIUM LACTATE 12% LOTION 225 GM BOTTLE TP SCH ×2 (11:01→22:26)
[2017-06-28] MEDS: TOLNAFTATE 1% CREAM 15 GM TUBE TP SCH ×2 (11:20→22:24)
[2017-06-28] MEDS ORDERED: ONDANSETRON *ODT* 4 MG TABLET SL PRN (13:21)
--- NOTE | 2017-06-28 13:21 | PN ---
S CIWA - CIWA Score Nausea/Vomitin Muscle Tremors: 3 Anxiety: 5 Agitation: 4-Moderately Restless Paroxysmal Sweats: 3 Orientation: 0-Oriented Tacttile Disturbances: 1-Very Mild Itch/Numbness Auditory Disturbances: 0-None Visual Disturbances: 0-None Headache: 0-None Present CIWA-Ar Total Score: 21 BHS COWS - Scale Resting Pulse: 0= [place] 80 or Below Sweatin= Chills/Flushing Restless Observation: 1= Difficult to Sit Still Pupil Size: 0= Normal to Room Light Bone or Joint Aches: 2= Severe Diffuse Aches Runny Nose/ Eye Tearin= Nasal Congestion GI Upset > 30mins: 3= Vomiting/Diarrhea Tremor Observation of Outstretched Hands: 2= Slight Tremor Visible Yawning Observation: 1= 1-2x During Session Anxiety or Irritability: 4=Extreme Anxiety Goose Flesh Skin: 0=Smooth Skin COWS Score: 15 S Progress Note (SOAP) Subjective: Body Aches, Vomiting, Stomach Cramping, Diarrhea, Nasal Congestion, Anxious, Tremors. Objective: PT. A & O X 3, OBSERVED AMBULATING ON UNIT. NO ACUTE DISTRESS. PT. DENIES CHEST PAIN. 06/28/17 13:17 Vital Signs Temperature 96.7 F L 06/28/17 09:43 Pulse Rate 75 06/28/17 09:43 Respiratory Rate 18 06/28/17 09:43 Blood Pressure 139/79 06/28/17 09:43 O2 Sat by Pulse Oximetry (%) Laboratory Tests 06/27/17 06/27/17 06/28/17 12:10 15:43 05:45 WBC 4.6 RBC 5.06 Hgb 13.8 Hct 42.2 MCV 83.5 MCH 27.3 MCHC 32.7 RDW 14.0 Plt Count 294 MPV 8.8 D Sodium Potassium Chloride Carbon Dioxide Anion Gap BUN Creatinine Creat Clearance w eGFR Random Glucose Calcium Total Bilirubin AST ALT Alkaline Phosphatase Total Protein Albumin Urine Color Straw Urine Appearance Clear Urine pH 6.0 Ur Specific [place] <= 1.005 Urine Protein Negative Urine Glucose (UA) Negative Urine Ketones Negative Urine Blood Negative Urine Nitrite Negative Urine Bilirubin Negative Urine Urobilinogen Negative Ur Leukocyte Esterase Negative RPR Titer HIV 1&2 Antibody Screen Negative HIV P24 Antigen Negative 06/28/17 06/28/17 05:45 05:45 WBC RBC Hgb Hct MCV MCH MCHC RDW Plt Count MPV Sodium 134 L Potassium 4.3 Chloride 99 Carbon Dioxide 27 Anion Gap 8 BUN 11 Creatinine 0.9 Creat Clearance w eGFR > 60 Random Glucose 132 H D Calcium 8.6 Total Bilirubin 0.6 AST 26 D ALT 25 D Alkaline Phosphatase 131 H D Total Protein 7.5 Albumin 3.6 Urine Color Urine Appearance Urine pH Ur Specific [place] Urine Protein Urine Glucose (UA) Urine Ketones Urine Blood Urine Nitrite Urine Bilirubin Urine Urobilinogen Ur Leukocyte Esterase RPR Titer Nonreactive HIV 1&2 Antibody Screen HIV P24 Antigen LABS NOTED. Assessment: 06/28/17 13:18 WITHDRAWAL SYMPTOMS. Plan: CONTINUE DETOX. CLONIDINE, 0.1 MG PO X 1 FOR DETOX SYMPTOMS. TIGAN IM X 1 FOR VOMITING. PRN ZOFRAN SL NAUSEA / VOMITING. PRN IMMODIUM FOR DIARRHEA. PATIENT REPORTING THAT ADMISSION DETOX REGIMEN (LIBRIUM) NOT WORKING WELL FOR HIM AND CAUSING HIM SIDE EFFECTS (EX: DIARRHEA). AT PATIENT'S REQUEST, DETOX REGIMEN CHANGED FROM LIBRIUM DETOX REGIMEN TO VALIUM REGIMEN. METHADONE DETOX REGIMEN MAINTAINED. INCREASE DAILY PO FLUID INTAKE.
[2017-06-28] MEDS: cloNIDine HCL 0.1 MG TABLET PO ONE ×2 (13:44→13:46)
--- NOTE | 2017-06-28 13:44 | CONSULT ---
[facility] Psychiatric Consult - Data Date of interview: 06/28/17 Admission source: [facility] Identifying data: Readmission to [facility] for this 57 y/o AA male seeking detox treatment on for heroin,cocaine,alcohol and xanax dependence.Patient is single without children,domiciled,unemployed and supported on food stamps. Substance Abuse History: Discussed in this session.Patient corroborated this report from [facility] : Smoking history: Current every day smoker. Have you smoked in the past 12 months: Yes. Aproximately how many cigarettes per day: 10. Cigars Per Day: 0. Hx Chewing Tobacco Use: No. Initiated information on smoking cessation: Yes. 'Breaking Loose' booklet given: 06/27/17. - Substance & Tx. History. Hx Alcohol Use: Yes. Hx Substance Use: Yes. Substance Use Type : Alcohol, Cocaine, Heroin, Tranquilizers. - Substances Abused. Heroin. Route: Inhalation. Frequency: Daily. Amount used: 10 bags. Age of first use: 26. Date of Last Use: 06/26/17. Cocaine. Route: Inhalation. Frequency: Daily. Amount used: $30-40. Age of first use: 19. Date of Last Use: . Alcohol-beer/vodka. Route: Oral. Frequency: Daily. Amount used: 2-6 pks./2 pts. Age of first use: 14. Date of Last Use: 06/27/17. Xanax. Route: Oral. Frequency: 3-6 times per week. Amount used: 2 mg. Age of first use: 56. Date of Last Use: 06/25/17 Medical History: GERD and a history of orthosurgery in 2016 (repair of left Achilles tendon). Psychiatric History: Poor historian.Patient admits to one psychiatric hospitalization at [facility].Unable to provide a diagnosis." I told them that I was hearing voices.Then I changed the story.They put me on trazodone." Mr Christianson denies history of [facility]PD care.No contact with mental healthcare providers.Patient denies history of suicide attempts. Physical/Sexual Abuse/Trauma History: No reported history of abuse. Additional Comment: Urine Drug Screen Results: ALBIN-Cocaine, OPI-Opiates, BZO- Benzodiazepines, OXY-Oxycodone.Noted. Mental Status Exam - Mental Status Exam Alert and Oriented to: Time, Place, Person Cognitive Function: Grossly Intact Patient Appearance: Bizarre Mood: Nervous, Withdrawn Affect: Mood Congruent Patient Behavior: Sedated (mildly sedated), Fatigued Speech Pattern: Delayed, Slurred Voice Loudness: Moderately Soft/Quiet Thought Process: Goal Oriented (conversant) Thought Disorder: Bizarre Hallucinations: Denies Suicidal Ideation: Denies Homicidal Ideation: Denies Insight/Judgement: Poor Sleep: Poorly, Difficulty falling asleep (self-report) Appetite: Good Muscle strength/Tone: Normal Gait/Station: Normal Psychiatric Findings - Problem List ([place] 1, 2,3) (1) Opioid dependence with withdrawal Current Visit: Yes Status: Acute (2) Alcohol dependence with uncomplicated withdrawal Current Visit: Yes Status: Acute (3) Uncomplicated sedative, hypnotic or anxiolytic withdrawal Current Visit: Yes Status: Acute (4) Cocaine dependence Current Visit: Yes Status: Acute (5) Nicotine dependence Current Visit: Yes Status: Acute Qualifiers: Nicotine product type: cigarettes Substance use status: in withdrawal Qualified Code(s): F17.213 - Nicotine dependence, cigarettes, with withdrawal; F17.213 - Nicotine dependence, cigarettes, with withdrawal (6) Drug-induced mood disorder Current Visit: Yes Status: Acute (7) Insomnia Current Visit: Yes Status: Acute - Initial Treatment Plan Initial Treatment Plan: Psychoeducation.Detoxification.Trazodone 50 mg po hs.Patient is made aware of risk of priapism.He agrees to continue this medication.Observation.Review of recent pharmacy claims : no evidence of trazodone.
[2017-06-28] MEDS: diazePAM 5 MG TABLET PO SCH ×2 (13:45→22:24)
[2017-06-28] MEDS ORDERED: chlordiazePOXIDE HCL 25 MG CAPSULE PO SCH (17:00)
[2017-06-28] MEDS: diazePAM 5 MG TABLET PO PRN (17:30)
[2017-06-28] MEDS: hydrOXYzine PAMOATE 25 MG CAPSULE (FP) PO PRN (18:13)
[2017-06-28] MEDS ORDERED: traZODone HCL 50 MG TABLET (FP) PO SCH (22:00)
[2017-06-28] MEDS: traZODone HCL 50 MG TABLET (FP) PO SCH (22:24)
[2017-06-28] MEDS: THIAMINE HCL 100 MG TABLET (FP) PO SCH (22:24)
[2017-06-29] MEDS: diazePAM 5 MG TABLET PO PRN ×2 (02:33→17:16)
[2017-06-29] MEDS: AMMONIUM LACTATE 12% LOTION 225 GM BOTTLE TP SCH ×2 (10:14→22:38)
[2017-06-29] MEDS: PRENATAL VITAMINS W/ FOLIC ACID TABLET (FP) PO SCH (10:14)
[2017-06-29] MEDS: diazePAM 5 MG TABLET PO SCH ×2 (10:14→22:38)
[2017-06-29] MEDS: METHADONE HCL 5 MG TABLET (FOR DETOX USE ONLY) PO SCH (10:14)
[2017-06-29] MEDS: NICOTINE 21 MG/24 HOURS TOPICAL PATCH TD SCH (10:15)
[2017-06-29] MEDS: TOLNAFTATE 1% CREAM 15 GM TUBE TP SCH ×2 (10:16→22:38)
[2017-06-29] MEDS ORDERED: cloNIDine HCL 0.1 MG TABLET PO ONE (12:00)
--- NOTE | 2017-06-29 15:43 | PN ---
S CIWA - CIWA Score Nausea/Vomitin Muscle Tremors: 3 Anxiety: 4-Mod. Anxious/Guarded Agitation: 3 Paroxysmal Sweats: 3 Orientation: 0-Oriented Tacttile Disturbances: 1-Very Mild Itch/Numbness Auditory Disturbances: 0-None Visual Disturbances: 0-None Headache: 0-None Present CIWA-Ar Total Score: 19 BHS COWS - Scale Resting Pulse: 0= [place] 80 or Below Sweatin= Chills/Flushing Restless Observation: 1= Difficult to Sit Still Pupil Size: 0= Normal to Room Light Bone or Joint Aches: 2= Severe Diffuse Aches Runny Nose/ Eye Tearin= None GI Upset > 30mins: 3= Vomiting/Diarrhea Tremor Observation of Outstretched Hands: 2= Slight Tremor Visible Yawning Observation: 0= None Anxiety or Irritability: 4=Extreme Anxiety Goose Flesh Skin: 0=Smooth Skin COWS Score: 13 BHS Progress Note (SOAP) Subjective: Interrupted sleep, Body aches, Fatigue, Tremors, Anxious, Vomiting. Objective: PT. A & O X 3, OBSERVED AMBULATING ON UNIT. NO ACUTE DISTRESS. 06/29/17 15:52 Vital Signs Temperature 98.3 F 06/29/17 14:14 Pulse Rate 76 06/29/17 14:14 Respiratory Rate 18 06/29/17 14:14 Blood Pressure 125/94 06/29/17 14:14 O2 Sat by Pulse Oximetry (%) Laboratory Tests 06/27/17 06/27/17 06/28/17 12:10 15:43 05:45 WBC 4.6 RBC 5.06 Hgb 13.8 Hct 42.2 MCV 83.5 MCH 27.3 MCHC 32.7 RDW 14.0 Plt Count 294 MPV 8.8 D Sodium Potassium Chloride Carbon Dioxide Anion Gap BUN Creatinine Creat Clearance w eGFR Random Glucose Calcium Total Bilirubin AST ALT Alkaline Phosphatase Total Protein Albumin Urine Color Straw Urine Appearance Clear Urine pH 6.0 Ur Specific [place] <= 1.005 Urine Protein Negative Urine Glucose (UA) Negative Urine Ketones Negative Urine Blood Negative Urine Nitrite Negative Urine Bilirubin Negative Urine Urobilinogen Negative Ur Leukocyte Esterase Negative RPR Titer HIV 1&2 Antibody Screen Negative HIV P24 Antigen Negative 06/28/17 06/28/17 05:45 05:45 WBC RBC Hgb Hct MCV MCH MCHC RDW Plt Count MPV Sodium 134 L Potassium 4.3 Chloride 99 Carbon Dioxide 27 Anion Gap 8 BUN 11 Creatinine 0.9 Creat Clearance w eGFR > 60 Random Glucose 132 H D Calcium 8.6 Total Bilirubin 0.6 AST 26 D ALT 25 D Alkaline Phosphatase 131 H D Total Protein 7.5 Albumin 3.6 Urine Color Urine Appearance Urine pH Ur Specific [place] Urine Protein Urine Glucose (UA) Urine Ketones Urine Blood Urine Nitrite Urine Bilirubin Urine Urobilinogen Ur Leukocyte Esterase RPR Titer Nonreactive HIV 1&2 Antibody Screen HIV P24 Antigen LABS NOTED. Assessment: 06/29/17 15:53 WITHDRAWAL SYMPTOMS. Plan: CONTINUE DETOX. CLONIDINE, 0.1 MG PO X 1 FOR DETOX SYMPTOMS.
[2017-06-29] MEDS ORDERED: chlordiazePOXIDE 5 MG CAPSULE PO SCH (17:00)
[2017-06-29] MEDS: THIAMINE HCL 100 MG TABLET (FP) PO SCH (22:38)
[2017-06-29] MEDS: traZODone HCL 50 MG TABLET (FP) PO SCH (22:38)
[2017-06-30] MEDS: diazePAM 5 MG TABLET PO PRN (05:16)
[2017-06-30] MEDS ORDERED: cloNIDine HCL 0.1 MG TABLET PO ONE (10:17)
[2017-06-30] MEDS: METHADONE HCL 5 MG TABLET (FOR DETOX USE ONLY) PO SCH (10:28)
[2017-06-30] MEDS: diazePAM 5 MG TABLET PO SCH ×2 (10:28→22:26)
[2017-06-30] MEDS: TOLNAFTATE 1% CREAM 15 GM TUBE TP SCH ×2 (10:29→22:24)
[2017-06-30] MEDS: NICOTINE 21 MG/24 HOURS TOPICAL PATCH TD SCH (10:30)
[2017-06-30] MEDS: PRENATAL VITAMINS W/ FOLIC ACID TABLET (FP) PO SCH (10:30)
[2017-06-30] MEDS: AMMONIUM LACTATE 12% LOTION 225 GM BOTTLE TP SCH ×2 (10:31→22:25)
--- NOTE | 2017-06-30 12:40 | PN ---
BHS Progress Note (SOAP) Subjective: Nausea, Fatigue, Sweating, Poor Appetite, Interrupted sleep. Objective: PT. A & O X 3, OBSERVED AMBULATING ON UNIT. NO ACUTE DISTRESS. 06/30/17 12:38 Vital Signs Temperature 97.2 F L 06/30/17 10:00 Pulse Rate 97 H 06/30/17 10:00 Respiratory Rate 16 06/30/17 10:00 Blood Pressure 115/77 06/30/17 10:00 O2 Sat by Pulse Oximetry (%) Laboratory Tests 06/27/17 06/27/17 06/28/17 12:10 15:43 05:45 WBC 4.6 RBC 5.06 Hgb 13.8 Hct 42.2 MCV 83.5 MCH 27.3 MCHC 32.7 RDW 14.0 Plt Count 294 MPV 8.8 D Sodium Potassium Chloride Carbon Dioxide Anion Gap BUN Creatinine Creat Clearance w eGFR Random Glucose Calcium Total Bilirubin AST ALT Alkaline Phosphatase Total Protein Albumin Urine Color Straw Urine Appearance Clear Urine pH 6.0 Ur Specific [place] <= 1.005 Urine Protein Negative Urine Glucose (UA) Negative Urine Ketones Negative Urine Blood Negative Urine Nitrite Negative Urine Bilirubin Negative Urine Urobilinogen Negative Ur Leukocyte Esterase Negative RPR Titer HIV 1&2 Antibody Screen Negative HIV P24 Antigen Negative 06/28/17 06/28/17 05:45 05:45 WBC RBC Hgb Hct MCV MCH MCHC RDW Plt Count MPV Sodium 134 L Potassium 4.3 Chloride 99 Carbon Dioxide 27 Anion Gap 8 BUN 11 Creatinine 0.9 Creat Clearance w eGFR > 60 Random Glucose 132 H D Calcium 8.6 Total Bilirubin 0.6 AST 26 D ALT 25 D Alkaline Phosphatase 131 H D Total Protein 7.5 Albumin 3.6 Urine Color Urine Appearance Urine pH Ur Specific [place] Urine Protein Urine Glucose (UA) Urine Ketones Urine Blood Urine Nitrite Urine Bilirubin Urine Urobilinogen Ur Leukocyte Esterase RPR Titer Nonreactive HIV 1&2 Antibody Screen HIV P24 Antigen LABS NOTED. Assessment: 06/30/17 12:38 WITHDRAWAL SYMPTOMS. Plan: CONTINUED DETOX. INCREASE DAILY PO FLUID INTAKE. PRN ZOFRAN SL FOR NAUSEA / VOMITING. CLONIDINE, 0.1 MG PO X 1 FOR DETOX SYMPTOMS.
[2017-06-30] MEDS ORDERED: chlordiazePOXIDE HCL 10 MG CAPSULE PO SCH (17:00)
[2017-06-30] MEDS: hydrOXYzine PAMOATE 25 MG CAPSULE (FP) PO PRN (17:20)
[2017-06-30] MEDS: THIAMINE HCL 100 MG TABLET (FP) PO SCH (22:25)
[2017-06-30] MEDS: traZODone HCL 50 MG TABLET (FP) PO SCH (22:26)
[2017-07-01] MEDS ORDERED: METHADONE HCL 10 MG TABLET (FOR DETOX USE ONLY) PO SCH (10:00)
[2017-07-01] MEDS ORDERED: diazePAM 5 MG TABLET PO SCH (10:00)
[2017-07-01] MEDS: NICOTINE 21 MG/24 HOURS TOPICAL PATCH TD SCH (10:28)
[2017-07-01] MEDS: PRENATAL VITAMINS W/ FOLIC ACID TABLET (FP) PO SCH (10:28)
[2017-07-01] MEDS: AMMONIUM LACTATE 12% LOTION 225 GM BOTTLE TP SCH ×2 (10:29→22:54)
[2017-07-01] MEDS: TOLNAFTATE 1% CREAM 15 GM TUBE TP SCH ×2 (10:29→22:55)
[2017-07-01] MEDS ORDERED: cloNIDine HCL 0.1 MG TABLET PO ONE (11:45)
--- NOTE | 2017-07-01 14:50 | PN ---
BHS Progress Note (SOAP) Subjective: Anxious, Sweating. Patient reporting that his appetite is improving and that the feels better overall than he has the last few days. Objective: PT. A & O X 3, OBSERVED AMBULATING ON UNIT. NO ACUTE DISTRESS. 07/01/17 14:48 Vital Signs Temperature 96.9 F L 07/01/17 09:38 Pulse Rate 72 07/01/17 09:38 Respiratory Rate 16 07/01/17 09:38 Blood Pressure 103/70 07/01/17 09:38 O2 Sat by Pulse Oximetry (%) Laboratory Tests 06/27/17 06/27/17 06/28/17 12:10 15:43 05:45 WBC 4.6 RBC 5.06 Hgb 13.8 Hct 42.2 MCV 83.5 MCH 27.3 MCHC 32.7 RDW 14.0 Plt Count 294 MPV 8.8 D Sodium Potassium Chloride Carbon Dioxide Anion Gap BUN Creatinine Creat Clearance w eGFR Random Glucose Calcium Total Bilirubin AST ALT Alkaline Phosphatase Total Protein Albumin Urine Color Straw Urine Appearance Clear Urine pH 6.0 Ur Specific [place] <= 1.005 Urine Protein Negative Urine Glucose (UA) Negative Urine Ketones Negative Urine Blood Negative Urine Nitrite Negative Urine Bilirubin Negative Urine Urobilinogen Negative Ur Leukocyte Esterase Negative RPR Titer HIV 1&2 Antibody Screen Negative HIV P24 Antigen Negative 06/28/17 06/28/17 05:45 05:45 WBC RBC Hgb Hct MCV MCH MCHC RDW Plt Count MPV Sodium 134 L Potassium 4.3 Chloride 99 Carbon Dioxide 27 Anion Gap 8 BUN 11 Creatinine 0.9 Creat Clearance w eGFR > 60 Random Glucose 132 H D Calcium 8.6 Total Bilirubin 0.6 AST 26 D ALT 25 D Alkaline Phosphatase 131 H D Total Protein 7.5 Albumin 3.6 Urine Color Urine Appearance Urine pH Ur Specific [place] Urine Protein Urine Glucose (UA) Urine Ketones Urine Blood Urine Nitrite Urine Bilirubin Urine Urobilinogen Ur Leukocyte Esterase RPR Titer Nonreactive HIV 1&2 Antibody Screen HIV P24 Antigen LABS NOTED. Assessment: 07/01/17 14:53 WITHDRAWAL SYMPTOMS. Plan: CONTINUE DETOX. CLONIDINE, 0.1 MG PO X 1 FOR DETOX SYMPTOMS. PATIENT REQUESTING TO LEAVE DETOX TODAY BECAUSE HE REPORTS THAT HE FEELS SOMEWHAT BETTER; HOWEVER, PATIENT ENCOURAGED TO REMAIN ON UNIT UNTIL TOMORROW AM TO COMPLETE FULL DETOX REGIMEN. INCREASE DAILY PO FLUID INTAKE.
[2017-07-01] MEDS: hydrOXYzine PAMOATE 25 MG CAPSULE (FP) PO PRN (17:25)
[2017-07-01] MEDS: traZODone HCL 50 MG TABLET (FP) PO SCH (22:50)
[2017-07-01] MEDS: THIAMINE HCL 100 MG TABLET (FP) PO SCH (22:50)
[2017-07-01] MEDS: diphenhydrAMINE HCL 50 MG CAPSULE PO PRN (22:56)
[2017-07-02] MEDS ORDERED: METHADONE HCL 5 MG TABLET (FOR DETOX USE ONLY) PO SCH (06:00)
[2017-07-02 09:29] VITALS: BP 93/52; PULSE 104; TEMP 97.9
--- NOTE | 2017-07-02 12:18 | DS ---
[facility] Detox Discharge Summary Admission Date: 06/27/17 Discharge Date: 07/02/17 - History Present History: Alcohol Dependence, Cocaine Dependence, Opioid Dependence, Sedative Dependence Additional Comments: Noted with hypotension, asymptomatic: encouraged to drink lots of water Pertinent Past History: GERD - Physical Exam Results Vital Signs: Vital Signs Temperature 97.9 F 07/02/17 09:29 Pulse Rate 104 H 07/02/17 09:29 Respiratory Rate 18 07/02/17 09:29 Blood Pressure 93/52 07/02/17 09:29 O2 Sat by Pulse Oximetry (%) Pertinent Admission Physical Exam Findings: Withdrawal symptoms Laboratory Tests 06/27/17 06/27/17 06/28/17 12:10 15:43 05:45 WBC 4.6 RBC 5.06 Hgb 13.8 Hct 42.2 MCV 83.5 MCH 27.3 MCHC 32.7 RDW 14.0 Plt Count 294 MPV 8.8 D Sodium Potassium Chloride Carbon Dioxide Anion Gap BUN Creatinine Creat Clearance w eGFR Random Glucose Calcium Total Bilirubin AST ALT Alkaline Phosphatase Total Protein Albumin Urine Color Straw Urine Appearance Clear Urine pH 6.0 Ur Specific [place] <= 1.005 Urine Protein Negative Urine Glucose (UA) Negative Urine Ketones Negative Urine Blood Negative Urine Nitrite Negative Urine Bilirubin Negative Urine Urobilinogen Negative Ur Leukocyte Esterase Negative RPR Titer HIV 1&2 Antibody Screen Negative HIV P24 Antigen Negative 06/28/17 06/28/17 05:45 05:45 WBC RBC Hgb Hct MCV MCH MCHC RDW Plt Count MPV Sodium 134 L Potassium 4.3 Chloride 99 Carbon Dioxide 27 Anion Gap 8 BUN 11 Creatinine 0.9 Creat Clearance w eGFR > 60 Random Glucose 132 H D Calcium 8.6 Total Bilirubin 0.6 AST 26 D ALT 25 D Alkaline Phosphatase 131 H D Total Protein 7.5 Albumin 3.6 Urine Color Urine Appearance Urine pH Ur Specific [place] Urine Protein Urine Glucose (UA) Urine Ketones Urine Blood Urine Nitrite Urine Bilirubin Urine Urobilinogen Ur Leukocyte Esterase RPR Titer Nonreactive HIV 1&2 Antibody Screen HIV P24 Antigen Labs noted - Treatment Hospital Course: Detox Protocol Followed, Detoxed Safely, Responded well, Discharged Condition Good - Medication Discharge Medications: Ambulatory Orders Trazodone HCl 100 mg PO HS #30 tablet 07/01/17 - Diagnosis (1) Alcohol dependence with uncomplicated withdrawal Status: Acute (2) Cocaine dependence Status: Chronic (3) Drug-induced mood disorder Status: Acute (4) Insomnia Status: Acute (5) Nicotine dependence Status: Chronic Qualifiers: Nicotine product type: cigarettes Substance use status: in withdrawal Qualified Code(s): F17.213 - Nicotine dependence, cigarettes, with withdrawal; F17.213 - Nicotine dependence, cigarettes, with withdrawal (6) Opioid dependence with withdrawal Status: Acute (7) Uncomplicated sedative, hypnotic or anxiolytic withdrawal Status: Acute (8) GERD (gastroesophageal reflux disease) Status: Chronic (9) Hypotension Status: Acute - AMA Did Patient Leave Against Medical Advice: No (F/U with your PCP in 1-2 weeks)
== END 2017-07-02 09:31 | disposition home or self-care (01) | DRG 773 ==
LOC: YASAS 09:11 → Y3N 12:15
PROVIDERS: ADMIT Internal Medicine; ATTEND Internal Medicine
PROC: HZ2ZZZZ Detoxification Services for Substance Abuse Treatment (ICD-10-PCS; principal; 2017-06-27)
DX: F11.23 Opioid dependence with withdrawal (principal); F13.230 Sedative, hypnotic or anxiolytic dependence with withdrawal, uncomplicated; F10.230 Alcohol dependence with withdrawal, uncomplicated; F14.20 Cocaine dependence, uncomplicated; F17.210 Nicotine dependence, cigarettes, uncomplicated; F19.24 Other psychoactive substance dependence with psychoactive substance-induced mood disorder; F34.1 Dysthymic disorder; F51.05 Insomnia due to other mental disorder; L85.3 Xerosis cutis; G47.00 Insomnia, unspecified; I95.9 Hypotension, unspecified; Z87.898 Personal history of other specified conditions
CPT/HCPCS: 36415; 80053; 81003; 85027; 86593; 87389; 93005; 93010

== ENCOUNTER 2018-01-08 15:53 | Inpatient (IN) | payer OTHER ==
[2018-01-08 19:55] VITALS: BMI 28.8
[2018-01-08] MEDS ORDERED: MELATONIN 5 MG TABLETS PO PRN (22:00)
--- NOTE | 2018-01-08 22:01 | HP ---
COWS - Scale Resting Pulse: 1= SD 81-100 Sweatin= Chills/Flushing Restless Observation: 1= Difficult to Sit Still Pupil Size: 1= Pupils >than Normal Bone or Joint Aches: 1= Mild Discomfort Runny Nose/ Eye Tearin= Constantly Teary/Runny GI Upset > 30mins: 0= None Tremor Observation: 1= Tremor [facility], Not Seen Yawning Observation: 2= >3x During Session Anxiety or Irritability: 1=Feels Anxious/Irritable Goose Flesh Skin: 0=Smooth Skin COWS Score: 13 CIWA Score - CIWA Score Nausea/Vomitin-Mild Nausea/No Vomiting Muscle Tremors: 2 Anxiety: 2 Agitation: 3 Paroxysmal Sweats: 2 Orientation: 0-Oriented Tacttile Disturbances: 2-Mild Itch/Numbness/Burn (b/t lower extremities) Auditory Disturbances: 0-None Visual Disturbances: 0-None Headache: 0-None Present CIWA-Ar Total Score: 12 Admission [facility] - HPI Chief Complaint: " I am here to detox from heroin and alcohol" Allergies/Adverse Reactions: Allergies Allergy/AdvReac Type Severity Reaction Status Date / Time Penicillins Allergy Verified 11/14/17 19:04 History of Present Illness: 57 yo male with hx nicotine, heroin ( paranasal) , alcohol and cocaine dependence is here seeking detox. PMHX: OA, hx of CVA and insomnia. Denies suicide . homicidal ideation or suicide attempts. Longest period of sobriety 3 years. Last detox [facility] 11/14/17 -11/18-. Exam Limitations: No Limitations - Ebola screening Have you traveled outside of the country in the last 21 days: No Have you had contact with anyone from an Ebola affected area: No Have you been sick,other than usual withdrawal symptoms: No Do you have a fever: No - Review of Systems Constitutional: Chills, Changes in sleep, Unintentional Wgt. Loss (7 lbs over the past two months) EENT: reports: Nose Congestion, Other (decrease vision as results of "stroke on left eye") Respiratory: reports: No Symptoms reported Cardiac: reports: No Symptoms Reported, Other (reports hx "circulation problem on both legs") GI: reports: Poor Appetite, Poor Fluid Intake : reports: No Symptoms Reported Musculoskeletal: reports: Back Pain, Joint Pain (bilateral pain on both lower extremities, reports was advise by BOWSTRING MAKER to elevate daily) Integumentary: reports: Pruritus (chronic itch related to dry skin) Endocrine: reports: Increased Thirst Hematology: reports: No Symptoms Reported, Blood Clots Psychiatric: reports: Orientated x3, Anxious Other Systems: Reviewed and Negative Patient History - Patient Medical History Hx Anemia: No Hx Asthma: Yes Hx Chronic Obstructive Pulmonary Disease (COPD): No Hx Cancer: No Hx Cardiac Disorders: No Hx Congestive Heart Failure: No Hx Hypertension: No Hx Hypercholesterolemia: No Hx Pacemaker: No HX Cerebrovascular Accident: Yes (left CVA 2010 with left visiual impairment ) Hx Seizures: No Hx Dementia: No Hx Diabetes: No Hx Gastrointestinal Disorders: Yes (acid reflux) Hx Liver Disease: No Hx Genitourinary Disorders: No Hx Sexually Transmitted Disorders: No Hx Renal Disease (ESRD): No Hx Thyroid Disease: No Hx Human Immunodeficiency Virus (HIV): No (last tested 02/2017) Hx Hepatitis C: No Hx Depression: Yes Hx Suicide Attempt: No Hx Bipolar Disorder: No Hx Schizophrenia: No - Patient Surgical History Past Surgical History: No Hx Neurologic Surgery: No Hx Cataract Extraction: No Hx Cardiac Surgery: No Hx Lung Surgery: No Hx Breast Surgery: No Hx Breast Biopsy: No Hx Abdominal Surgery: No Hx Appendectomy: No Hx Cholecystectomy: No Hx Genitourinary Surgery: No Hx Section: No Hx Orthopedic Surgery: Yes (both feet) Other Surgical History: repair of archillis tendon left 2015 Anesthesia Reaction: No - PPD History Previous Implant?: Yes Documented Results: Negative w/o proof Implanted On Prior [facility] Admission?: No PPD to be Administered?: Yes - Reproductive History Patient is a Female of Child Bearing Age (11 -55 yrs old): No - Smoking Cessation Smoking history: Current every day smoker Have you smoked in the past 12 months: Yes Aproximately how many cigarettes per day: 10 Cigars Per Day: 0 Hx Chewing Tobacco Use: No Initiated information on smoking cessation: Yes 'Breaking Loose' booklet given: 01/08/18 - Substance & Tx. History Hx Alcohol Use: Yes Hx Substance Use: Yes Substance Use Type: Alcohol, Cocaine, Heroin Hx Substance Use Treatment: Yes ([facility] 11/14/17 -11/18/17) - Substances Abused Alcohol Route: Oral Frequency: Daily Amount used: 6/25OZ CANS BEER Age of first use: 29 Date of Last Use: 01/08/18 Heroin Route: SNIFFING Frequency: Daily Amount used: 10BAGS Age of first use: 29 Date of Last Use: 01/08/18 Family Disease History - Family Disease History Family Disease History: Heart Disease: Mother, [place]: Father (), Brother, Other: Father Admission Physical Exam [facility] - Vital Signs Vital Signs: Vital Signs - 24 hr 01/08/18 19:53 Temperature 98.1 F Pulse Rate 85 Respiratory 18 Rate Blood Pressure 118/72 - Physical General Appearance: Yes: Disheveled, Alcohol on Breath, Thin, Anxious HEENTM: Yes: EOMI, Hearing grossly Normal, Normal ENT Inspection, Normocephalic , Normal Voice, Pharynx Normal, Tm's normal Respiratory: Yes: Chest Non-Tender, Lungs Clear, Normal Breath Sounds, No Respiratory Distress, No Accessory Muscle Use Neck: Yes: No masses,lesions,Nodules, Trachea in good position Breast: Yes: Breast Exam Deferred Cardiology: Yes: Regular Rhythm, Regular Rate Abdominal: Yes: Normal Bowel Sounds, Non Tender, Flat, Soft Genitourinary: Yes: Within Normal Limits Back: Yes: Normal Inspection Musculoskeletal: Yes: full range of Motion, Gait Steady, Pelvis Stable, Back pain Extremities: Yes: Normal Capillary Refill, Normal Inspection, Normal Range of Motion, Non-Tender, Swelling (+2 non-pitting edema on both lower extremities) Neurological: Yes: rn mds II-XII NML intact, Fully Oriented, Alert, Motor Strength 5/5, Normal Response, Depressed Affect Integumentary: Yes: Normal Color, Warm, Moist, Pitting Edema Lymphatic: Yes: Within Normal Limits - Diagnostic (1) Alcohol dependence with uncomplicated withdrawal Current Visit: Yes Status: Acute (2) Bilateral leg edema Current Visit: Yes Status: Acute (3) Cocaine dependence Current Visit: Yes Status: Acute Qualifiers: Substance use status: uncomplicated Qualified Code(s): F14.20 - Cocaine dependence, uncomplicated (4) Insomnia Current Visit: Yes Status: Acute Qualifiers: Insomnia type: unspecified Qualified Code(s): G47.00 - Insomnia, unspecified (5) Nicotine dependence Current Visit: Yes Status: Acute Qualifiers: Nicotine product type: cigarettes Substance use status: in withdrawal Qualified Code(s): F17.213 - Nicotine dependence, cigarettes, with withdrawal (6) Opioid dependence with withdrawal Current Visit: Yes Status: Acute (7) Weight loss Current Visit: Yes Status: Acute (8) Chronic pain of right knee Current Visit: Yes Status: Chronic (9) Dry skin dermatitis Current Visit: Yes Status: Chronic (10) GERD (gastroesophageal reflux disease) Current Visit: Yes Status: Chronic Qualifiers: Esophagitis presence: esophagitis presence not specified Qualified Code(s) : K21.9 - Gastro-esophageal reflux disease without esophagitis (11) Neuropathy Current Visit: Yes Status: Acute Cleared for Admission [facility] - Detox or Rehab [facility] Level of Care: Medically Managed Detox Regimen/Protocol: Methadone/Librium [facility] Breath Alcohol Content Breath Alcohol Content: 0.015 Urine Drug Screen - Results Drug Screen Negative: No Urine Drug Screen Results: ALBIN-Cocaine, OPI-Opiates, MTD-Methadone
[2018-01-08] MEDS ORDERED: P-EPHED 60MG/TRIPROLIDI 2.5MG TABLET PO PRN (22:12)
[2018-01-08] MEDS ORDERED: guaiFENesin/D-METHORPHAN HB 10 ML UNIT-DOSE CUPS PO PRN (22:12)
[2018-01-08] MEDS ORDERED: MAGNESIUM HYDROX 2400MG/30ML ORAL SUSPENSION 30 ML CUP PO PRN (22:12)
[2018-01-08] MEDS ORDERED: MAGNESIUM CITRATE 300 ML BOTTLE PO PRN (22:12)
[2018-01-08] MEDS ORDERED: METHADONE HCL 10 MG TABLET (FOR DETOX USE ONLY) PO ONE ×2 (22:12→23:00)
[2018-01-08] MEDS ORDERED: ACETAMINOPHEN 325 MG TABLET (FP) PO PRN (22:12)
[2018-01-08] MEDS ORDERED: MAG HYDROX/AL HYDROX/SIMETH 30 ML UNIT-DOSE CUP PO PRN (22:12)
[2018-01-08] MEDS ORDERED: LOPERAMIDE HCL 2 MG CAPSULE PO PRN (22:12)
[2018-01-08] MEDS ORDERED: chlordiazePOXIDE HCL 25 MG CAPSULE PO ONE (22:12)
[2018-01-08] MEDS ORDERED: IBUPROFEN 400 MG TABLET (FP) PO PRN (22:12)
[2018-01-08] MEDS ORDERED: MENTHOL/PHENOL 1 EACH UD MM PRN (22:12)
[2018-01-08] MEDS ORDERED: NICOTINE POLACRILEX 2 MG GUM BC PRN (22:12)
[2018-01-08] MEDS: chlordiazePOXIDE HCL 25 MG CAPSULE PO SCH (23:04)
[2018-01-08] MEDS: NAPROXEN 375 MG TABLET (FP) PO SCH (23:05)
[2018-01-09] MEDS: chlordiazePOXIDE HCL 25 MG CAPSULE PO SCH ×4 (05:55→22:11)
[2018-01-09] MEDS: GABAPENTIN 100 MG CAPSULE (FP) PO SCH ×3 (06:05→22:13)
[2018-01-09 09:50] LABS: HEMATOCRIT 39.1 % (35.4-49); MCH 29.5 pg (25.7-33.7); MCHC 33.3 g/dl (32.0-35.9); MEAN CELL VOLUME 88.6 fl (80-96); MEAN PLT VOLUME 8.3 fl (7.5-11.1); PLATELET COUNT 253 K/MM3 (134-434); RBC 4.41 M/mm3 (4.00-5.60); WHITE BLOOD COUNT 4.9 K/mm3 (4.0-10.0)
--- NOTE | 2018-01-09 09:50 | EKG ---
Test Reason : Blood Pressure : / mmHG Vent. Rate : 060 BPM Atrial Rate : 060 BPM P-R Int : 136 ms QRS Dur : 102 ms QT Int : 422 ms P-R-T Axes : 064 040 023 degrees QTc Int : 422 ms SINUS RHYTHM WITH OCCASIONAL PREMATURE VENTRICULAR COMPLEXES OTHERWISE NORMAL ECG WHEN COMPARED WITH ECG OF 08-JAN-2018 23:12, PREMATURE VENTRICULAR COMPLEXES ARE NOW PRESENT Confirmed by MD Lydia, Glenn ([id number]) on 01/09/2018 9:50:14 AM Referred By: Confirmed By:Glenn Freeman MD
[2018-01-09] MEDS ORDERED: METHADONE HCL 10 MG TABLET (FOR DETOX USE ONLY) PO SCH (10:00)
[2018-01-09 10:07] LABS: CHLORIDE 101 mmol/L (98-107); POTASSIUM 4.3 mmol/L (3.5-5.1); SODIUM 138 mmol/L (136-145)
--- NOTE | 2018-01-09 10:41 | PN ---
[facility] CIWA - CIWA Score Nausea/Vomitin Muscle Tremors: 3 Anxiety: 3 Agitation: 3 Paroxysmal Sweats: 2 Orientation: 0-Oriented Tacttile Disturbances: 1-Very Mild Itch/Numbness Auditory Disturbances: 1-Very Mild Visual Disturbances: 0-None Headache: 2-Mild CIWA-Ar Total Score: 18 BHS COWS - Scale Resting Pulse: 0= OR 80 or Below Sweatin= Chills/Flushing Restless Observation: 3= Extraneous Movement Pupil Size: 1= Pupils >than Normal Bone or Joint Aches: 2= Severe Diffuse Aches Runny Nose/ Eye Tearin= Runny Nose/Eyes GI Upset > 30mins: 2= Nausea/Diarrhea Tremor Observation of Outstretched Hands: 2= Slight Tremor Visible Yawning Observation: 1= 1-2x During Session Anxiety or Irritability: 2=Irritable/Anxious Goose Flesh Skin: 0=Smooth Skin COWS Score: 16 S Progress Note (SOAP) Subjective: ALERT,IRRITABLE,ANXIOUS,INTERRUPTED SLEEP,TREMOR,PAIN IN THE BODY,AND BACK Objective: 01/09/18 10:27 Vital Signs Temperature 97.7 F 01/09/18 08:54 Pulse Rate 50 L 01/09/18 08:54 Respiratory Rate 16 01/09/18 08:54 Blood Pressure 130/77 01/09/18 08:54 O2 Sat by Pulse Oximetry (%) EKG SINUS BRADYCARDIA,57/MIN PROLONG QT 420/408 NO CHEST PAIN,NO SOB,NO DIZZINESS 01/09/18 10:28 Laboratory Last Values WBC 4.9 K/mm3 (4.0-10.0) 01/09/18 07:30 RBC 4.41 M/mm3 (4.00-5.60) 01/09/18 07:30 Hgb 13.0 GM/dL (11.7-16.9) 01/09/18 07:30 Hct 39.1 % (35.4-49) 01/09/18 07:30 MCV 88.6 fl (80-96) 01/09/18 07:30 MCH 29.5 pg (25.7-33.7) 01/09/18 07:30 MCHC 33.3 g/dl (32.0-35.9) 01/09/18 07:30 RDW 13.0 % (11.9-15.9) 01/09/18 07:30 Plt Count 253 K/MM3 (134-434) D 01/09/18 07:30 MPV 8.3 fl (7.5-11.1) 01/09/18 07:30 Sodium 138 mmol/L (136-145) 01/09/18 07:30 Potassium 4.3 mmol/L (3.5-5.1) 01/09/18 07:30 Chloride 101 mmol/L (98-107) 01/09/18 07:30 01/09/18 10:53 LABS PENDING Assessment: 01/09/18 10:53 WITHDRAWAL SYMPTOM Plan: CONTINUE DETOX REGIMEN
[2018-01-09] MEDS: TOLNAFTATE 1% CREAM 15 GM TUBE TP SCH ×2 (11:00→22:13)
[2018-01-09 11:08] LABS: BLOOD UREA NITROGEN 13 mg/dL (7-18); CO2 31 mmol/L (21-32); CREATININE 0.6 mg/dL (0.7-1.3); GLUCOSE,RANDOM 87 mg/dL (74-106)
[2018-01-09 11:09] LABS: ALBUMIN 3.1 g/dl (3.4-5.0); ALK PHOS 99 U/L (45-117); ANION GAP 6 (8-16); BILIRUBIN,TOTAL 0.3 mg/dL (0.2-1.0); CALCIUM 8.1 mg/dL (8.5-10.1); SGOT/AST 73 U/L (15-37); SGPT/ALT 39 U/L (12-78); TOT PROT 5.9 g/dl (6.4-8.2)
[2018-01-09] MEDS: cloNIDine HCL 0.1 MG TABLET PO SCH ×3 (12:41→22:33)
[2018-01-09] MEDS: NAPROXEN 375 MG TABLET (FP) PO SCH ×2 (12:43→22:12)
[2018-01-09] MEDS: PRENATAL VITAMINS W/ FOLIC ACID TABLET (FP) PO SCH (12:46)
[2018-01-09] MEDS: NICOTINE 14 MG/24 HOURS TOPICAL PATCH TD SCH (12:47)
[2018-01-09] MEDS: chlordiazePOXIDE HCL 25 MG CAPSULE PO PRN (12:47)
[2018-01-09] MEDS: AMMONIUM LACTATE 12% LOTION 225 GM BOTTLE TP SCH ×2 (16:06→22:12)
--- NOTE | 2018-01-09 17:37 | CONSULT ---
[facility] Psychiatric Consult - Data Date of interview: 01/09/18 Admission source: [facility] Identifying data: Patient is a 57 year old single male, without kids, unemployed (not receiving financial assistance), and currently homeless. This is one of multiple admissions for patient. Pt. admitted to for alcohol, cocaine and opiate dependence. Substance Abuse History: Following information confirmed with Mr. Christianson: - Smoking Cessation. Smoking history: Current every day smoker. Have you smoked in the past 12 months: Yes. Aproximately how many cigarettes per day: 10. Cigars Per Day: 0. Hx Chewing Tobacco Use: No. Initiated information on smoking cessation: Yes. 'Breaking Loose' booklet given: 01/08/18. - Substance & Tx. History. Hx Alcohol Use: Yes. Hx Substance Use: Yes. Substance Use Type : Alcohol, Cocaine, Heroin. Hx Substance Use Treatment: Yes ([facility] 11/14/17 -11/18). - Substances Abused. Alcohol. Route: Oral. Frequency: Daily. Amount used: 6/25OZ CANS BEER. Age of first use: 29. Date of Last Use: . Heroin. Route: SNIFFING. Frequency: Daily. Amount used: 10BAGS. Age of first use: 29. Date of Last Use: 01/08/18 Medical History: left CVA 2009 with left visiual impairment, repair of left achilles tendon in 2015 Psychiatric History: Patient presents as a poor historian. Pt. denies h/o psychiatric treatment but as per Dr. English note on 11/15/17 patient reported a history of one psychiatric hospitalization at [facility] in 2004 and past history of accepting trazodone. Pt. denies h/o suicide attempt. Pt. currently reports difficulty sleeping. Physical/Sexual Abuse/Trauma History: Denies. Mental Status Exam - Mental Status Exam Alert and Oriented to: Time, Place, Person Cognitive Function: Fair Patient Appearance: Well Groomed Mood: Withdrawn, Euthymic Affect: Mood Congruent Patient Behavior: Fatigued Speech Pattern: Delayed Voice Loudness: Moderately Soft/Quiet Thought Process: Goal Oriented Thought Disorder: Not Present Hallucinations: Denies Suicidal Ideation: Denies Homicidal Ideation: Denies Insight/Judgement: Poor Sleep: Poorly Appetite: Fair Muscle strength/Tone: Normal Gait/Station: Other (Did not observe patient's gait.) Psychiatric Findings - Problem List ([place] 1, 2,3) (1) Alcohol dependence with uncomplicated withdrawal Current Visit: Yes Status: Acute (2) Cocaine dependence Current Visit: Yes Status: Acute Qualifiers: Substance use status: uncomplicated Qualified Code(s): F14.20 - Cocaine dependence, uncomplicated (3) Insomnia Current Visit: Yes Status: Acute Qualifiers: Insomnia type: unspecified Qualified Code(s): G47.00 - Insomnia, unspecified (4) Opioid dependence with withdrawal Current Visit: Yes Status: Acute (5) Drug-induced mood disorder Current Visit: Yes Status: Acute - Initial Treatment Plan Initial Treatment Plan: Psychoeducation provided. Detoxification in progress. Pt. refusing trazodone. Ambien 5mg qhs prn ordered. Benefits and side effects discussed. Patient made aware of the risk of parasomnia. Verbal consent given. Will continue to monitor.
[2018-01-09] MEDS ORDERED: ZOLPIDEM TARTRATE 5 MG TABLET PO PRN (22:00)
[2018-01-09] MEDS: THIAMINE HCL 100 MG TABLET (FP) PO SCH (22:13)
[2018-01-10] MEDS: chlordiazePOXIDE HCL 25 MG CAPSULE PO PRN ×2 (03:13→13:37)
[2018-01-10] MEDS: chlordiazePOXIDE HCL 25 MG CAPSULE PO SCH ×3 (06:01→17:55)
[2018-01-10] MEDS: GABAPENTIN 100 MG CAPSULE (FP) PO SCH ×3 (06:01→22:20)
--- NOTE | 2018-01-10 09:19 | PN ---
S CIWA - CIWA Score Nausea/Vomitin Muscle Tremors: 3 Anxiety: 3 Agitation: 2 Paroxysmal Sweats: 1-Minimal Palms Moist Orientation: 0-Oriented Tacttile Disturbances: 1-Very Mild Itch/Numbness Auditory Disturbances: 1-Very Mild Visual Disturbances: 0-None Headache: 2-Mild CIWA-Ar Total Score: 16 BHS COWS - Scale Resting Pulse: 0= HI 80 or Below Sweatin= Chills/Flushing Restless Observation: 3= Extraneous Movement Pupil Size: 1= Pupils >than Normal Bone or Joint Aches: 2= Severe Diffuse Aches Runny Nose/ Eye Tearin= Nasal Congestion GI Upset > 30mins: 2= Nausea/Diarrhea Tremor Observation of Outstretched Hands: 2= Slight Tremor Visible Yawning Observation: 1= 1-2x During Session Anxiety or Irritability: 2=Irritable/Anxious Goose Flesh Skin: 0=Smooth Skin COWS Score: 15 BHS Progress Note (SOAP) Subjective: ALERT,IRRITABLE,ANXIOUS,INTERRUPTED SLEEP,PAIN IN THE BODY AND BACK,TREMOR Objective: 01/10/18 09:18 Vital Signs Temperature 97.3 F L 01/10/18 07:17 Pulse Rate 51 L 01/10/18 07:17 Respiratory Rate 18 01/10/18 07:17 Blood Pressure 136/79 01/10/18 07:17 O2 Sat by Pulse Oximetry (%) Laboratory Last Values WBC 4.9 K/mm3 (4.0-10.0) 01/09/18 07:30 RBC 4.41 M/mm3 (4.00-5.60) 01/09/18 07:30 Hgb 13.0 GM/dL (11.7-16.9) 01/09/18 07:30 Hct 39.1 % (35.4-49) 01/09/18 07:30 MCV 88.6 fl (80-96) 01/09/18 07:30 MCH 29.5 pg (25.7-33.7) 01/09/18 07:30 MCHC 33.3 g/dl (32.0-35.9) 01/09/18 07:30 RDW 13.0 % (11.9-15.9) 01/09/18 07:30 Plt Count 253 K/MM3 (134-434) D 01/09/18 07:30 MPV 8.3 fl (7.5-11.1) 01/09/18 07:30 Sodium 138 mmol/L (136-145) 01/09/18 07:30 Potassium 4.3 mmol/L (3.5-5.1) 01/09/18 07:30 Chloride 101 mmol/L (98-107) 01/09/18 07:30 Carbon Dioxide 31 mmol/L (21-32) 01/09/18 07:30 Anion Gap 6 (8-16) L 01/09/18 07:30 BUN 13 mg/dL (7-18) D 01/09/18 07:30 Creatinine 0.6 mg/dL (0.7-1.3) L D 01/09/18 07:30 Creat Clearance w eGFR > 60 (>60) 01/09/18 07:30 Random Glucose 87 mg/dL (74-106) 01/09/18 07:30 Calcium 8.1 mg/dL (8.5-10.1) L 01/09/18 07:30 Total Bilirubin 0.3 mg/dL (0.2-1.0) D 01/09/18 07:30 AST 73 U/L (15-37) H D 01/09/18 07:30 ALT 39 U/L (12-78) D 01/09/18 07:30 Alkaline Phosphatase 99 U/L (45-117) 01/09/18 07:30 Total Protein 5.9 g/dl (6.4-8.2) L 01/09/18 07:30 Albumin 3.1 g/dl (3.4-5.0) L 01/09/18 07:30 RPR Titer Nonreactive (NONREACTIVE) 01/09/18 07:30 Assessment: 01/10/18 09:18 WITHDRAWAL SYMPTOM Plan: CONTINUE DETOX
[2018-01-10] MEDS: AMMONIUM LACTATE 12% LOTION 225 GM BOTTLE TP SCH ×2 (10:00→22:23)
[2018-01-10] MEDS: CYCLOBENZAPRINE HCL 10 MG TABLET (FP) PO PRN (10:50)
[2018-01-10] MEDS: cloNIDine HCL 0.1 MG TABLET PO SCH ×2 (10:50→22:21)
[2018-01-10] MEDS: METHADONE HCL 5 MG TABLET (FOR DETOX USE ONLY) PO SCH (10:50)
[2018-01-10] MEDS: hydrOXYzine PAMOATE 50 MG CAPSULE (FP) PO PRN (10:50)
[2018-01-10] MEDS: PRENATAL VITAMINS W/ FOLIC ACID TABLET (FP) PO SCH (10:50)
[2018-01-10] MEDS: NICOTINE 14 MG/24 HOURS TOPICAL PATCH TD SCH (10:51)
[2018-01-10] MEDS: TOLNAFTATE 1% CREAM 15 GM TUBE TP SCH ×2 (10:51→22:22)
[2018-01-10] MEDS: NAPROXEN 375 MG TABLET (FP) PO SCH ×2 (10:52→22:20)
[2018-01-10] MEDS ORDERED: COLLOIDAL OATMEAL 1 BAR EACH TP PRN (14:16)
[2018-01-10] MEDS: LIDOCAINE 5% TOPICAL PATCH TP SCH (15:10)
--- NOTE | 2018-01-10 15:35 | PN ---
Psychiatric Progress Note Vital Signs: Vital Signs Period Temp Pulse Resp BP Sys/Gregory Pulse Ox Last 24 Hr 97.3 F-97.8 F 51-69 18-20 124-145/69-86 Date of Session: 01/10/18 Chief Complaint:: " I'm still up at night." ROS: Unremarkable. Current Medications: Active Medications Generic Name Dose Route Start Last Admin Trade Name Freq PRN Reason Stop Dose Admin Acetaminophen 650 mg 01/08/18 22:12 Tylenol - PO Q4H PRN FEVER Al Hydroxide/Mg Hydroxide 30 ml 01/08/18 22:12 Mylanta Oral Suspension - PO Q6H PRN DYSPEPSIA Chlordiazepoxide HCl 25 mg 01/09/18 23:00 01/10/18 10:50 Librium - PO 01/10/18 17:01 25 mg [id number] LISA Administration Chlordiazepoxide HCl 15 mg 01/10/18 23:00 Librium - PO 01/11/18 17:01 [id number] LISA Chlordiazepoxide HCl 10 mg 01/11/18 23:00 Librium - PO 01/12/18 17:01 [id number] LISA Chlordiazepoxide HCl 25 mg 01/08/18 22:12 01/10/18 13:37 Librium - PO 01/11/18 22:15 25 mg Q4H PRN Administration WITHDRAWAL(CONT SUBST) Clonidine 0.1 mg 01/09/18 10:45 01/10/18 10:50 Catapres - PO 0.1 mg BID LISA Administration Colloidal Oatmeal 1 applic 01/10/18 14:16 Aveeno Soap - TP DAILY PRN HYGEINE Cyclobenzaprine HCl 10 mg 01/09/18 10:23 01/10/18 10:50 Flexeril - PO 10 mg TID PRN Administration MUSCLE SPASMS Eucalyptus/Menthol/Phenol/Sorbitol 1 each 01/08/18 22:12 Cepastat Lozenge - MM Q4H PRN SORE THROAT Gabapentin 100 mg 01/09/18 06:00 01/10/18 13:36 Neurontin - PO 100 mg TID LISA Administration Guaifenesin 10 ml 01/08/18 22:12 Robitussin Dm - PO Q6H PRN COUGH Hydroxyzine Pamoate 50 mg 01/08/18 22:12 05/09/18 10:50 Vistaril - PO 50 mg Q4H PRN Administration AGITATION Lactic Acid 1 applic 01/09/18 10:00 01/10/18 10:00 Lac-Hydrin 12 TP 1 applic BID LISA Administration Lidocaine 1 patch 01/10/18 15:00 Lidoderm Patch - TP DAILY LISA Loperamide HCl 4 mg 01/08/18 22:12 Imodium - PO Q6H PRN DIARRHEA Magnesium Citrate 300 ml 01/08/18 22:12 Citroma - PO Q48H PRN CONSTIPATION Magnesium Hydroxide 30 ml 01/08/18 22:12 Milk Of Magnesia - PO DAILY PRN CONSTIPATION Methadone HCl 15 mg 01/10/18 10:00 01/10/18 10:50 Dolophine - PO 01/11/18 10:01 15 mg DAILY LISA Administration Methadone HCl 5 mg 01/13/18 06:00 Dolophine - PO 01/13/18 06:01 DAILY@0600 LISA Methadone HCl 10 mg 01/12/18 10:00 Dolophine - PO 01/12/18 10:01 DAILY LISA Methyl Salicylate 1 applic 01/10/18 22:00 Aaron-Ventura - TP BID LISA Miscellaneous 1 each 01/10/18 22:00 Lidoderm Patch Removal MC DAILY@2200 LISA Naproxen 375 mg 01/08/18 22:30 01/10/18 10:52 Naprosyn - PO 375 mg BID LISA Administration Nicotine 14 mg 01/09/18 10:00 01/10/18 10:51 Nicoderm Patch - TD 14 mg DAILY LISA Administration Nicotine Polacrilex 2 mg 01/08/18 22:12 Nicorette Gum - BC Q2H PRN NICOTINE REPLACEMENT RX Multivit/Folic Acid/Iron 1 tab 01/09/18 10:00 01/10/18 10:50 Vitamins (Sjr) - PO 1 tab DAILY LISA Administration Pseudoephedrine/Triprolidine 1 combo 01/08/18 22:12 Actifed - PO TID PRN NASAL CONGESTION Thiamine HCl 100 mg 01/09/18 22:00 01/09/18 22:13 Vitamin B1 - PO 100 mg HS LISA Administration Tolnaftate 1 applic 01/09/18 10:00 01/10/18 10:51 Tinactin 1% Cream - TP 1 applic BID LISA Administration Zolpidem Tartrate 5 mg 01/09/18 22:00 01/09/18 22:17 Ambien - PO 5 mg HS PRN Administration INSOMNIA Medication(s) Change(s): Yes. Will increase ambien to 10mg qhs prn. Current Side Effect: No Lab tests ordered: No Lab tests reviewed: Yes Provider note:: Wire Brush Operator met with patient concerning psychiatric reconsultation. Pt. accepted ambien 5mg qhs but continues to report difficulty sleeping. Ambien to be increased to 10mg. Psychoeducation and sleep hygiene provided. Patient made aware of the risk of parasomnia. Verbal consent given. Will continue to monitor patient. Total face to face time:: 25 Mental Status Exam - Mental Status Exam Alert and Oriented to: Time, Place, Person Cognitive Function: Good Patient Appearance: Well Groomed Mood: Euthymic Affect: Mood Congruent Patient Behavior: Fatigued Speech Pattern: Delayed Voice Loudness: Normal Thought Process: Goal Oriented Thought Disorder: Not Present Hallucinations: Denies Suicidal Ideation: Denies Homicidal Ideation: Denies Insight/Judgement: Poor Sleep: Poorly Appetite: Fair Muscle strength/Tone: Normal Gait/Station: Normal Psychiatric Treatment Plan - Problem List (1) Alcohol dependence with uncomplicated withdrawal Current Visit: Yes (2) Cocaine dependence Current Visit: Yes Qualifiers: Substance use status: uncomplicated Qualified Code(s): F14.20 - Cocaine dependence, uncomplicated (3) Insomnia Current Visit: Yes Qualifiers: Insomnia type: unspecified Qualified Code(s): G47.00 - Insomnia, unspecified (4) Opioid dependence with withdrawal Current Visit: Yes (5) Drug-induced mood disorder Current Visit: Yes
[2018-01-10] MEDS ORDERED: ZOLPIDEM TARTRATE 10 MG TABLET (PARK CARE ONLY) PO PRN (22:00)
[2018-01-10] MEDS: THIAMINE HCL 100 MG TABLET (FP) PO SCH (22:20)
[2018-01-10] MEDS: LIDOCAINE PATCH REMOVAL MC SCH (22:21)
[2018-01-10] MEDS: chlordiazePOXIDE 5 MG CAPSULE PO SCH (22:21)
[2018-01-10] MEDS: METHYL SALICYLATE/MENTHOL OINT 30 GM TUBE TP SCH (22:22)
[2018-01-10] MEDS ORDERED: diphenhydrAMINE HCL 25 MG CAPSULE (FP) PO ONE (22:31)
--- NOTE | 2018-01-10 22:33 | PN ---
S Progress Note Note: Patient reports difficulty sleeping and the Ambien is not working . One time order Benadryl 50 QHS Continue to monitor Follow up with psych in the AM
[2018-01-11] MEDS: hydrOXYzine PAMOATE 50 MG CAPSULE (FP) PO PRN ×2 (02:55→10:43)
[2018-01-11] MEDS: chlordiazePOXIDE 5 MG CAPSULE PO SCH ×3 (05:11→17:47)
[2018-01-11] MEDS: GABAPENTIN 100 MG CAPSULE (FP) PO SCH ×3 (05:13→22:15)
--- NOTE | 2018-01-11 10:02 | PN ---
BHS Progress Note (SOAP) Subjective: ALERT,IRRITABLE,ANXIOUS,INTERRUPTED SLEEP,PAIN IN THE BODY AND BACK Objective: 01/11/18 10:01 Vital Signs Temperature 97.7 F 01/11/18 09:18 Pulse Rate 61 01/11/18 09:18 Respiratory Rate 16 01/11/18 09:18 Blood Pressure 124/76 01/11/18 09:18 O2 Sat by Pulse Oximetry (%) Assessment: 01/11/18 10:01 WITHDRAWAL SYMPTOM Plan: CONTINUE DETOX
[2018-01-11] MEDS: PRENATAL VITAMINS W/ FOLIC ACID TABLET (FP) PO SCH (10:34)
[2018-01-11] MEDS: METHADONE HCL 5 MG TABLET (FOR DETOX USE ONLY) PO SCH (10:34)
[2018-01-11] MEDS: CYCLOBENZAPRINE HCL 10 MG TABLET (FP) PO PRN (10:35)
[2018-01-11] MEDS: cloNIDine HCL 0.1 MG TABLET PO SCH ×2 (10:35→22:15)
[2018-01-11] MEDS: AMMONIUM LACTATE 12% LOTION 225 GM BOTTLE TP SCH ×2 (10:35→22:18)
[2018-01-11] MEDS: METHYL SALICYLATE/MENTHOL OINT 30 GM TUBE TP SCH ×2 (10:35→22:14)
[2018-01-11] MEDS: NICOTINE 14 MG/24 HOURS TOPICAL PATCH TD SCH (10:41)
[2018-01-11] MEDS: NAPROXEN 375 MG TABLET (FP) PO SCH ×2 (10:42→22:16)
[2018-01-11] MEDS: TOLNAFTATE 1% CREAM 15 GM TUBE TP SCH ×2 (10:42→22:18)
[2018-01-11] MEDS: LIDOCAINE 5% TOPICAL PATCH TP SCH (14:06)
[2018-01-11] MEDS: chlordiazePOXIDE HCL 25 MG CAPSULE PO PRN (14:08)
--- NOTE | 2018-01-11 15:43 | PN ---
Psychiatric Progress Note Vital Signs: Vital Signs Period Temp Pulse Resp BP Sys/Gregory Pulse Ox Last 24 Hr 95.5 F-97.7 F 61-90 16-20 123-129/76-91 Date of Session: 01/11/18 Chief Complaint:: Insomnia HPI: Patient elliot CHAPA in the lobby reporting insomnia Current Medications: Active Medications Generic Name Dose Route Start Last Admin Trade Name Freq PRN Reason Stop Dose Admin Acetaminophen 650 mg 01/08/18 22:12 Tylenol - PO Q4H PRN FEVER Al Hydroxide/Mg Hydroxide 30 ml 01/08/18 22:12 Mylanta Oral Suspension - PO Q6H PRN DYSPEPSIA Chlordiazepoxide HCl 15 mg 01/10/18 23:00 01/11/18 10:35 Librium - PO 01/11/18 17:01 15 mg [id number] LISA Administration Chlordiazepoxide HCl 10 mg 01/11/18 23:00 Librium - PO 01/12/18 17:01 [id number] LISA Chlordiazepoxide HCl 25 mg 01/08/18 22:12 01/11/18 14:08 Librium - PO 01/11/18 22:15 25 mg Q4H PRN Administration WITHDRAWAL(CONT SUBST) Clonidine 0.1 mg 01/09/18 10:45 01/11/18 10:35 Catapres - PO 0.1 mg BID LISA Administration Colloidal Oatmeal 1 applic 01/10/18 14:16 01/11/18 10:35 Aveeno Soap - TP 1 applic DAILY PRN Administration HYGEINE Cyclobenzaprine HCl 10 mg 01/09/18 10:23 01/11/18 10:35 Flexeril - PO 10 mg TID PRN Administration MUSCLE SPASMS Eucalyptus/Menthol/Phenol/Sorbitol 1 each 01/08/18 22:12 Cepastat Lozenge - MM Q4H PRN SORE THROAT Gabapentin 100 mg 01/09/18 06:00 01/11/18 14:09 Neurontin - PO 100 mg TID LISA Administration Guaifenesin 10 ml 01/08/18 22:12 Robitussin Dm - PO Q6H PRN COUGH Hydroxyzine Pamoate 50 mg 01/08/18 22:12 01/11/18 10:43 Vistaril - PO 50 mg Q4H PRN Administration AGITATION Lactic Acid 1 applic 01/09/18 10:00 01/11/18 10:35 Lac-Hydrin 12 TP 1 applic BID LISA Administration Lidocaine 1 patch 01/10/18 15:00 01/11/18 14:06 Lidoderm Patch - TP 1 patch DAILY LISA Administration Loperamide HCl 4 mg 01/08/18 22:12 Imodium - PO Q6H PRN DIARRHEA Magnesium Citrate 300 ml 01/08/18 22:12 Citroma - PO Q48H PRN CONSTIPATION Magnesium Hydroxide 30 ml 01/08/18 22:12 Milk Of Magnesia - PO DAILY PRN CONSTIPATION Methadone HCl 5 mg 01/13/18 06:00 Dolophine - PO 01/13/18 06:01 DAILY@0600 LISA Methadone HCl 10 mg 01/12/18 10:00 Dolophine - PO 01/12/18 10:01 DAILY LISA Methyl Salicylate 1 applic 01/10/18 22:00 01/11/18 10:35 Aaron-Ventura - TP 1 applic BID LISA Administration Miscellaneous 1 each 01/10/18 22:00 01/10/18 22:21 Lidoderm Patch Removal MC 1 each DAILY@2200 LISA Administration Naproxen 375 mg 01/08/18 22:30 01/11/18 10:42 Naprosyn - PO 375 mg BID LISA Administration Nicotine 14 mg 01/09/18 10:00 01/11/18 10:41 Nicoderm Patch - TD 14 mg DAILY LISA Administration Nicotine Polacrilex 2 mg 01/08/18 22:12 Nicorette Gum - BC Q2H PRN NICOTINE REPLACEMENT RX Multivit/Folic Acid/Iron 1 tab 01/09/18 10:00 01/11/18 10:34 Vitamins ([facility]) - PO 1 tab DAILY LISA Administration Pseudoephedrine/Triprolidine 1 combo 01/08/18 22:12 Actifed - PO TID PRN NASAL CONGESTION Thiamine HCl 100 mg 01/09/18 22:00 01/10/18 22:20 Vitamin B1 - PO 100 mg HS LISA Administration Tolnaftate 1 applic 01/09/18 10:00 01/11/18 10:42 Tinactin 1% Cream - TP 1 applic BID LISA Administration Zolpidem Tartrate 10 mg 01/10/18 22:00 05/09/18 22:21 Ambien - PO 10 mg HS PRN Administration INSOMNIA Provider note:: Patient reports insomnia, reports taking Ambien 10mg po qhs with good response Mental Status Exam - Mental Status Exam Alert and Oriented to: Person Cognitive Function: Fair Patient Appearance: Well Groomed Mood: Apprehensive Affect: Mood Congruent Patient Behavior: Cooperative Speech Pattern: Appropriate Voice Loudness: Normal Thought Process: Goal Oriented Thought Disorder: Being Controlled Hallucinations: Denies Suicidal Ideation: Denies Homicidal Ideation: Denies Insight/Judgement: Fair Sleep: Difficulty falling asleep Appetite: Weight gain Muscle strength/Tone: Normal Gait/Station: Normal Additional Comments: Ambien 10mg po qhs Psychiatric Treatment Plan - Problem List (1) Weight loss Current Visit: Yes (2) Cocaine dependence Current Visit: Yes Qualifiers: Substance use status: uncomplicated Qualified Code(s): F14.20 - Cocaine dependence, uncomplicated (3) Drug-induced mood disorder Current Visit: Yes (4) Nicotine dependence Current Visit: Yes Qualifiers: Nicotine product type: cigarettes Substance use status: in withdrawal Qualified Code(s): F17.213 - Nicotine dependence, cigarettes, with withdrawal (5) Opioid dependence with withdrawal Current Visit: Yes Initial treatment plan: Ambien 10mg po qhs
[2018-01-11] MEDS: chlordiazePOXIDE HCL 10 MG CAPSULE PO SCH (22:14)
[2018-01-11] MEDS: THIAMINE HCL 100 MG TABLET (FP) PO SCH (22:15)
[2018-01-11] MEDS: ZOLPIDEM TARTRATE 5 MG TABLET PO PRN (22:15)
[2018-01-11] MEDS: LIDOCAINE PATCH REMOVAL MC SCH (22:18)
[2018-01-12] MEDS: chlordiazePOXIDE HCL 10 MG CAPSULE PO SCH ×3 (05:15→17:29)
[2018-01-12] MEDS: GABAPENTIN 100 MG CAPSULE (FP) PO SCH ×3 (05:22→22:15)
[2018-01-12] MEDS ORDERED: METHADONE HCL 10 MG TABLET (FOR DETOX USE ONLY) PO SCH (10:00)
[2018-01-12] MEDS: PRENATAL VITAMINS W/ FOLIC ACID TABLET (FP) PO SCH (10:27)
[2018-01-12] MEDS: hydrOXYzine PAMOATE 50 MG CAPSULE (FP) PO PRN ×2 (10:27→14:46)
[2018-01-12] MEDS: cloNIDine HCL 0.1 MG TABLET PO SCH ×2 (10:27→22:16)
[2018-01-12] MEDS: LIDOCAINE 5% TOPICAL PATCH TP SCH (10:27)
[2018-01-12] MEDS: NAPROXEN 375 MG TABLET (FP) PO SCH ×2 (10:27→22:18)
[2018-01-12] MEDS: AMMONIUM LACTATE 12% LOTION 225 GM BOTTLE TP SCH ×2 (10:27→22:20)
[2018-01-12] MEDS: METHYL SALICYLATE/MENTHOL OINT 30 GM TUBE TP SCH ×2 (10:27→22:20)
[2018-01-12] MEDS: NICOTINE 14 MG/24 HOURS TOPICAL PATCH TD SCH (10:28)
[2018-01-12] MEDS: TOLNAFTATE 1% CREAM 15 GM TUBE TP SCH ×2 (10:28→22:20)
--- NOTE | 2018-01-12 12:10 | PN ---
[facility] Progress Note (SOAP) Subjective: ALERT,IRRITABLE,INTERRUPTED SLEEP Objective: 01/12/18 12:09 Vital Signs Temperature 95.4 F L 01/12/18 09:12 Pulse Rate 70 01/12/18 09:12 Respiratory Rate 19 01/12/18 09:12 Blood Pressure 139/72 01/12/18 09:12 O2 Sat by Pulse Oximetry (%) Assessment: 01/12/18 12:10 WITHDRAWAL SYMPTOM Plan: CONTINUE DETOX,DISCHARGE IN AM
[2018-01-12 14:12] LABS: URINE APPEARANCE CLEAR; URINE BILIRUBIN NEGATIVE (<2.0 mg/dL); URINE COLOR LTYELLOW; URINE GLUCOSE (UA) NEGATIVE (NEGATIVE); URINE KETONE NEGATIVE (NEGATIVE); URINE LEUK ESTERASE NEGATIVE (NEGATIVE); URINE NITRITE NEGATIVE (NEGATIVE); URINE PROTEIN NEGATIVE (NEGATIVE); URINE UROBILINOGEN NEGATIVE mg/dL (0.2-1.0)
[2018-01-12] MEDS: CYCLOBENZAPRINE HCL 10 MG TABLET (FP) PO PRN (22:15)
[2018-01-12] MEDS: THIAMINE HCL 100 MG TABLET (FP) PO SCH (22:15)
[2018-01-12] MEDS: ZOLPIDEM TARTRATE 5 MG TABLET PO PRN (22:16)
[2018-01-12] MEDS: LIDOCAINE PATCH REMOVAL MC SCH (22:17)
[2018-01-13] MEDS: hydrOXYzine PAMOATE 50 MG CAPSULE (FP) PO PRN (02:57)
[2018-01-13] MEDS: CYCLOBENZAPRINE HCL 10 MG TABLET (FP) PO PRN (02:57)
[2018-01-13] MEDS: GABAPENTIN 100 MG CAPSULE (FP) PO SCH (05:29)
[2018-01-13 05:58] VITALS: BP 128/86; PULSE 63; TEMP 96.7
[2018-01-13] MEDS ORDERED: METHADONE HCL 5 MG TABLET (FOR DETOX USE ONLY) PO SCH (06:00)
--- NOTE | 2018-01-13 09:25 | PN ---
S Progress Note (SOAP) Subjective: ALERT,NO COMPLAINT Objective: 01/13/18 09:24 Vital Signs Temperature 96.7 F L 01/13/18 05:58 Pulse Rate 63 01/13/18 05:58 Respiratory Rate 18 01/13/18 05:58 Blood Pressure 128/86 01/13/18 05:58 O2 Sat by Pulse Oximetry (%) Assessment: 01/13/18 09:24 DETOX COMPLETED,NO WITHDRAWAL SYMPTOM Plan: DISCHARGE TODAY,FOLLOW UP WITH AFTER CARE PROGRAM ARRANGEMENT
--- NOTE | 2018-01-13 09:30 | DS ---
[facility] Detox Discharge Summary Admission Date: 01/08/18 Discharge Date: 01/13/18 - History Present History: Alcohol Dependence, Cocaine Dependence, Opioid Dependence Additional Comments: FOLLOW UP WITH AFTER CARE PROGRAM ARRANGEMENT Pertinent Past History: GERD NEUROPATHY TINEA PEDIS NICOTINE DEPENDENCE INSOMNIA - Physical Exam Results Vital Signs: Vital Signs Temperature 96.7 F L 01/13/18 05:58 Pulse Rate 63 01/13/18 05:58 Respiratory Rate 18 01/13/18 05:58 Blood Pressure 128/86 01/13/18 05:58 O2 Sat by Pulse Oximetry (%) Pertinent Admission Physical Exam Findings: WITHDRAWAL SIGNS AND SYMPTOM Vital Signs Temperature 96.7 F L 01/13/18 05:58 Pulse Rate 63 01/13/18 05:58 Respiratory Rate 18 01/13/18 05:58 Blood Pressure 128/86 01/13/18 05:58 O2 Sat by Pulse Oximetry (%) Laboratory Last Values WBC 4.9 K/mm3 (4.0-10.0) 01/09/18 07:30 RBC 4.41 M/mm3 (4.00-5.60) 01/09/18 07:30 Hgb 13.0 GM/dL (11.7-16.9) 01/09/18 07:30 Hct 39.1 % (35.4-49) 01/09/18 07:30 MCV 88.6 fl (80-96) 01/09/18 07:30 MCH 29.5 pg (25.7-33.7) 01/09/18 07:30 MCHC 33.3 g/dl (32.0-35.9) 01/09/18 07:30 RDW 13.0 % (11.9-15.9) 01/09/18 07:30 Plt Count 253 K/MM3 (134-434) D 01/09/18 07:30 MPV 8.3 fl (7.5-11.1) 01/09/18 07:30 Sodium 138 mmol/L (136-145) 01/09/18 07:30 Potassium 4.3 mmol/L (3.5-5.1) 01/09/18 07:30 Chloride 101 mmol/L (98-107) 01/09/18 07:30 Carbon Dioxide 31 mmol/L (21-32) 01/09/18 07:30 Anion Gap 6 (8-16) L 01/09/18 07:30 BUN 13 mg/dL (7-18) D 01/09/18 07:30 Creatinine 0.6 mg/dL (0.7-1.3) L D 01/09/18 07:30 Creat Clearance w eGFR > 60 (>60) 01/09/18 07:30 Random Glucose 87 mg/dL (74-106) 01/09/18 07:30 Calcium 8.1 mg/dL (8.5-10.1) L 01/09/18 07:30 Total Bilirubin 0.3 mg/dL (0.2-1.0) D 01/09/18 07:30 AST 73 U/L (15-37) H D 01/09/18 07:30 ALT 39 U/L (12-78) D 01/09/18 07:30 Alkaline Phosphatase 99 U/L (45-117) 01/09/18 07:30 Total Protein 5.9 g/dl (6.4-8.2) L 01/09/18 07:30 Albumin 3.1 g/dl (3.4-5.0) L 01/09/18 07:30 Urine Color Ltyellow 01/12/18 11:20 Urine Appearance Clear 01/12/18 11:20 Urine pH 7.0 (5.0-8.0) D 01/12/18 11:20 Ur Specific [place] 1.010 (1.001-1.035) 01/12/18 11:20 Urine Protein Negative (NEGATIVE) 01/12/18 11:20 Urine Glucose (UA) Negative (NEGATIVE) 01/12/18 11:20 Urine Ketones Negative (NEGATIVE) 01/12/18 11:20 Urine Blood Negative (NEGATIVE) 01/12/18 11:20 Urine Nitrite Negative (NEGATIVE) 01/12/18 11:20 Urine Bilirubin Negative (<2.0 mg/dL) 01/12/18 11:20 Urine Urobilinogen Negative mg/dL (0.2-1.0) 01/12/18 11:20 Ur Leukocyte Esterase Negative (NEGATIVE) 01/12/18 11:20 RPR Titer Nonreactive (NONREACTIVE) 01/09/18 07:30 - Treatment Hospital Course: Detox Protocol Followed, Detoxed Safely, Responded well, Discharged Condition Good, Rehab Referral Accepted Patient has Accepted a Rehab Referral to: [facility] - Medication Discharge Medications: Ambulatory Orders NK [No Known Home Medication] 01/08/18 - Diagnosis (1) Opioid dependence with withdrawal Status: Acute (2) Alcohol dependence with uncomplicated withdrawal Status: Resolved (3) Cocaine dependence Status: Acute Qualifiers: Substance use status: uncomplicated Qualified Code(s): F14.20 - Cocaine dependence, uncomplicated (4) Insomnia Status: Acute Qualifiers: Insomnia type: unspecified Qualified Code(s): G47.00 - Insomnia, unspecified (5) Neuropathy Status: Acute (6) Nicotine dependence Status: Acute Qualifiers: Nicotine product type: cigarettes Substance use status: in withdrawal Qualified Code(s): F17.213 - Nicotine dependence, cigarettes, with withdrawal (7) Chronic pain of right knee Status: Chronic (8) GERD (gastroesophageal reflux disease) Status: Chronic Qualifiers: Esophagitis presence: esophagitis presence not specified Qualified Code(s) : K21.9 - Gastro-esophageal reflux disease without esophagitis - AMA Did Patient Leave Against Medical Advice: No
== END 2018-01-13 08:44 | disposition home or self-care (01) | DRG 773 ==
LOC: YASAS 15:53 → Y6N 21:17
PROVIDERS: ADMIT Surgery; ATTEND Surgery
PROC: HZ2ZZZZ Detoxification Services for Substance Abuse Treatment (ICD-10-PCS; principal; 2018-01-08)
DX: F11.23 Opioid dependence with withdrawal (principal); F10.230 Alcohol dependence with withdrawal, uncomplicated; F14.20 Cocaine dependence, uncomplicated; F17.210 Nicotine dependence, cigarettes, uncomplicated; G47.00 Insomnia, unspecified; G62.9 Polyneuropathy, unspecified; B35.3 Tinea pedis; K21.9 Gastro-esophageal reflux disease without esophagitis
CPT/HCPCS: 36415; 80053; 81003; 85027; 86593; 93005; 93010; J0735

== ENCOUNTER 2018-01-15 17:41 | Inpatient (IN) | payer OTHER ==
[2018-01-15 18:14] VITALS: BMI 28.0
[2018-01-15] MEDS ORDERED: MELATONIN 5 MG TABLETS PO PRN (22:00)
[2018-01-15] MEDS ORDERED: MAGNESIUM HYDROX 2400MG/30ML ORAL SUSPENSION 30 ML CUP PO PRN (22:09)
[2018-01-15] MEDS ORDERED: MENTHOL/PHENOL 1 EACH UD MM PRN (22:09)
[2018-01-15] MEDS ORDERED: P-EPHED 60MG/TRIPROLIDI 2.5MG TABLET PO PRN (22:09)
[2018-01-15] MEDS ORDERED: NICOTINE POLACRILEX 2 MG GUM BC PRN (22:09)
[2018-01-15] MEDS ORDERED: ACETAMINOPHEN 325 MG TABLET (FP) PO PRN (22:09)
[2018-01-15] MEDS ORDERED: MAG HYDROX/AL HYDROX/SIMETH 30 ML UNIT-DOSE CUP PO PRN (22:09)
[2018-01-15] MEDS ORDERED: LOPERAMIDE HCL 2 MG CAPSULE PO PRN (22:09)
[2018-01-15] MEDS ORDERED: guaiFENesin/D-METHORPHAN HB 10 ML UNIT-DOSE CUPS PO PRN (22:09)
[2018-01-15] MEDS ORDERED: MAGNESIUM CITRATE 300 ML BOTTLE PO PRN (22:09)
[2018-01-15] MEDS ORDERED: diphenhydrAMINE HCL 25 MG CAPSULE (FP) PO PRN (22:10)
--- NOTE | 2018-01-15 22:14 | HP ---
Admission [facility] Chief Complaint: I am here for rehab Allergies/Adverse Reactions: Allergies Allergy/AdvReac Type Severity Reaction Status Date / Time Penicillins Allergy Verified 01/15/18 20:03 History of Present Illness: 57 yo male with hx nicotine, heroin ( paranasal) , alcohol and cocaine dependence is here seeking for rehab. PMHX: OA, hx of CVA and insomnia. Denies suicide . homicidal ideation or suicide attempts. Longest period of sobriety 3 years. Last detox [facility] 01/08/18 - 01/13/18. Exam Limitations: No Limitations - Ebola screening Have you been sick,other than usual withdrawal symptoms: No - Review of Systems Constitutional: No Symptoms Reported EENT: reports: No Symptoms Reported Respiratory: reports: No Symptoms reported Cardiac: reports: No Symptoms Reported GI: reports: No Symptoms Reported : reports: No Symptoms Reported Musculoskeletal: reports: No Symptoms Reported Integumentary: reports: Pruritus Neuro: reports: No Symptoms reported Endocrine: reports: No Symptoms Reported Hematology: reports: No Symptoms Reported Psychiatric: reports: Orientated x3, Anxious Other Systems: Reviewed and Negative Patient History - Patient Medical History Hx Anemia: No Hx Asthma: Yes Hx Chronic Obstructive Pulmonary Disease (COPD): No Hx Cancer: No Hx Cardiac Disorders: No Hx Congestive Heart Failure: No Hx Hypertension: No Hx Hypercholesterolemia: No Hx Pacemaker: No HX Cerebrovascular Accident: Yes (left CVA 2010 with left visiual impairment ) Hx Seizures: No Hx Dementia: No Hx Diabetes: No Hx Gastrointestinal Disorders: Yes (acid reflux) Hx Liver Disease: No Hx Genitourinary Disorders: No Hx Sexually Transmitted Disorders: No Hx Renal Disease (ESRD): No Hx Thyroid Disease: No Hx Human Immunodeficiency Virus (HIV): No (last tested 02/2017) Hx Hepatitis C: No Hx Depression: Yes Hx Suicide Attempt: No Hx Bipolar Disorder: No Hx Schizophrenia: No - Patient Surgical History Past Surgical History: No Hx Neurologic Surgery: No Hx Cataract Extraction: No Hx Cardiac Surgery: No Hx Lung Surgery: No Hx Breast Surgery: No Hx Breast Biopsy: No Hx Abdominal Surgery: No Hx Appendectomy: No Hx Cholecystectomy: No Hx Genitourinary Surgery: No Hx Section: No Hx Orthopedic Surgery: Yes (both feet) Other Surgical History: repair of archillis tendon left 2016 Anesthesia Reaction: No - PPD History Previous Implant?: No Documented Results: Negative w/o proof Implanted On Prior [facility] Admission?: No Results: c-xray 11/15/17 PPD to be Administered?: No - Smoking Cessation Smoking history: Current every day smoker Have you smoked in the past 12 months: Yes Aproximately how many cigarettes per day: 10 Cigars Per Day: 0 Hx Chewing Tobacco Use: No Initiated information on smoking cessation: Yes 'Breaking Loose' booklet given: 01/15/18 - Substance & Tx. History Hx Alcohol Use: Yes Hx Substance Use: Yes Substance Use Type: Alcohol, Cocaine, Heroin Hx Substance Use Treatment: Yes (01/08/18 - 01/13/18.) Family Disease History - Family Disease History Family Disease History: Heart Disease: Mother, [place]: Father (), Brother, Other: Father Admission Physical Exam [facility] - Vital Signs Vital Signs: Vital Signs - 24 hr 01/15/18 18:13 Temperature 96.9 F L Pulse Rate 105 H Respiratory 18 Rate Blood Pressure 139/84 - Physical General Appearance: Yes: No Apparent Distress, Nourished, Appropriately Dressed , Anxious HEENTM: Yes: EOMI, Hearing grossly Normal, Normal ENT Inspection, Normocephalic , Normal Voice, MACK, Pharynx Normal, Tm's normal Respiratory: Yes: Chest Non-Tender, Lungs Clear, Normal Breath Sounds, No Respiratory Distress, No Accessory Muscle Use Neck: Yes: No masses,lesions,Nodules, Trachea in good position Breast: Yes: Breast Exam Deferred Cardiology: Yes: Regular Rhythm, Regular Rate Abdominal: Yes: Normal Bowel Sounds, Non Tender, Flat, Soft Genitourinary: Yes: Within Normal Limits Back: Yes: Normal Inspection Musculoskeletal: Yes: full range of Motion, Gait Steady, Pelvis Stable Extremities: Yes: Normal Capillary Refill, Normal Inspection, Normal Range of Motion, Non-Tender 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, Fully Oriented, Alert, Motor Strength 5/5, Depressed Affect Integumentary: Yes: Normal Color, Warm, Moist Lymphatic: Yes: Within Normal Limits - Diagnostic (1) Opioid dependence Current Visit: Yes Status: Acute (2) Anxious mood Current Visit: Yes Status: Acute (3) Cocaine dependence Current Visit: Yes Status: Acute Qualifiers: Substance use status: uncomplicated Qualified Code(s): F14.20 - Cocaine dependence, uncomplicated (4) Nicotine dependence Current Visit: Yes Status: Acute Qualifiers: Nicotine product type: cigarettes Substance use status: in withdrawal Qualified Code(s): F17.213 - Nicotine dependence, cigarettes, with withdrawal (5) Chronic pain of right knee Current Visit: Yes Status: Chronic (6) Dry skin dermatitis Current Visit: Yes Status: Chronic (7) GERD (gastroesophageal reflux disease) Current Visit: Yes Status: Chronic Qualifiers: Esophagitis presence: esophagitis presence not specified Qualified Code(s) : K21.9 - Gastro-esophageal reflux disease without esophagitis (8) Tinea pedis Current Visit: Yes Status: Chronic Qualifiers: Laterality: bilateral Qualified Code(s): B35.3 - Tinea pedis (9) Alcohol dependence Current Visit: Yes Status: Acute Qualifiers: Substance use status: uncomplicated Qualified Code(s): F10.20 - Alcohol dependence, uncomplicated [facility] Breath Alcohol Content Breath Alcohol Content: 0 Urine Drug Screen - Results Urine Drug Screen Results: ALBIN-Cocaine, OPI-Opiates, BZO-Benzodiazepines, MTD- Methadone Inpatient Rehab Admission - Initial Determination Are CD services needed?: Yes Free of communicable disease: Yes Not in need of hospitalization: Yes - Rehab Admission Criteria Previous failed treatment: Yes Poor recovery environment: Yes Comorbidities: Yes Lacks judgement: Yes Patient is meeting Inpatient Rehab admission criteria:: Yes
[2018-01-15] MEDS ORDERED: COLLOIDAL OATMEAL 1 BAR EACH TP PRN (22:15)
[2018-01-15] MEDS: TOLNAFTATE 1% CREAM 15 GM TUBE TP SCH (23:04)
[2018-01-15] MEDS: IBUPROFEN 400 MG TABLET (FP) PO PRN (23:55)
[2018-01-15] MEDS: MINERAL OIL/PETROLAT/WATER TOPICAL CREAM 113 GM JAR TP SCH (23:57)
[2018-01-16 01:05] LABS: URINE APPEARANCE CLEAR; URINE BILIRUBIN NEGATIVE (<2.0 mg/dL); URINE COLOR YELLOW; URINE GLUCOSE (UA) NEGATIVE (NEGATIVE); URINE KETONE NEGATIVE (NEGATIVE); URINE LEUK ESTERASE NEGATIVE (NEGATIVE); URINE NITRITE NEGATIVE (NEGATIVE); URINE PROTEIN NEGATIVE (NEGATIVE); URINE UROBILINOGEN NEGATIVE mg/dL (0.2-1.0)
[2018-01-16] MEDS: MINERAL OIL/PETROLAT/WATER TOPICAL CREAM 113 GM JAR TP SCH ×2 (09:44→21:13)
[2018-01-16] MEDS: TOLNAFTATE 1% CREAM 15 GM TUBE TP SCH ×2 (09:44→21:13)
[2018-01-16] MEDS: PRENATAL VITAMINS W/ FOLIC ACID TABLET (FP) PO SCH (09:44)
[2018-01-16] MEDS: NICOTINE 14 MG/24 HOURS TOPICAL PATCH TD SCH (09:44)
[2018-01-16] MEDS: IBUPROFEN 400 MG TABLET (FP) PO PRN (09:45)
--- NOTE | 2018-01-16 12:00 | EKG ---
Test Reason : Blood Pressure : / mmHG Vent. Rate : 087 BPM Atrial Rate : 087 BPM P-R Int : 152 ms QRS Dur : 088 ms QT Int : 356 ms P-R-T Axes : 070 051 028 degrees QTc Int : 428 ms NORMAL SINUS RHYTHM NORMAL ECG Confirmed by MD JUANCHO, LESLIE ([id number]) on 01/16/2018 11:59:52 AM Referred By: Confirmed By:LESLIE DAWKINS MD
[2018-01-16] MEDS ORDERED: IBUPROFEN 600 MG TABLET (FP) PO PRN (13:17)
--- NOTE | 2018-01-16 13:23 | PN ---
[facility] Progress Note Note: Patient c/o of chronic pain on both lower extremities that comes and goes, pain in primary on both feet. C/o of feet swelling , Denies vertigo , CP or SOB. Vital Signs Temperature 97.5 F L 01/16/18 06:31 Pulse Rate 77 01/16/18 06:31 Respiratory Rate 18 01/16/18 06:31 Blood Pressure 133/86 01/16/18 06:31 O2 Sat by Pulse Oximetry (%) Laboratory Last Values Urine Color Yellow 01/15/18 23:50 Urine Appearance Clear 01/15/18 23:50 Urine pH 6.0 (5.0-8.0) 01/15/18 23:50 Ur Specific [place] 1.015 (1.001-1.035) 01/15/18 23:50 Urine Protein Negative (NEGATIVE) 01/15/18 23:50 Urine Glucose (UA) Negative (NEGATIVE) 01/15/18 23:50 Urine Ketones Negative (NEGATIVE) 01/15/18 23:50 Urine Blood Negative (NEGATIVE) 01/15/18 23:50 Urine Nitrite Negative (NEGATIVE) 01/15/18 23:50 Urine Bilirubin Negative (<2.0 mg/dL) 01/15/18 23:50 Urine Urobilinogen Negative mg/dL (0.2-1.0) 01/15/18 23:50 Ur Leukocyte Esterase Negative (NEGATIVE) 01/15/18 23:50 A/P Ao x3 self directing normal HR and Rhythm + varicose veins throughout both lower extremities No adventitious breath sounds Skin intact, + pulses through out, + skin dryness, no edema , + erythema on the right 3rd toe + pain on both feet - Leg pain - Varicose veins Plan: Increase fluids leg elevation ASA 81 mg QD Ibuprofen 600mg Q8H Patient advise to follow up with primary care provider upon d/c for referral to vascular specialist Continue to monitor for worsening symptoms
[2018-01-16] MEDS: ASPIRIN COATED 81 MG TABLET.EC PO SCH (14:20)
[2018-01-16] MEDS: BACITRACIN 0.9 GM PACKET TP SCH (14:20)
--- NOTE | 2018-01-16 14:39 | HP ---
Psychiatrist Admission - Data Date of interview: 01/16/18 Admission source: 3N Identifying data: This is the first 57 year old single male, without kids, unemployed (not receiving financial assistance), and currently homeless. Medical History: CVA with visual disturbances in the left eye (2009), osteoarthritis,GERD,bronchial asthma,recent treatment for pancreatitis and an antecedent of orthosurgery in 2016 (repair of left Achilles tendon). Smokes cigarettes 10 a day. Psychiatric History: Patient reports one psychiatric hospitalization at [facility] in 2004 due to depressed episode, he denies suicidal thoughts or attempts. Reports after discharge he did not follow at psychiatric OPD care, thinks was treated with Trazodone. While in detox was prescribed Ambien. Physical/Sexual Abuse/Trauma History: Denies. Vital Signs: Vital Signs - 24 hr 01/15/18 01/16/18 01/16/18 18:13 03:30 06:31 Temperature 96.9 F L 97.5 F L Pulse Rate 105 H 77 Respiratory 18 16 18 Rate Blood Pressure 139/84 133/86 Allergies/Adverse Reactions: Allergies Allergy/AdvReac Type Severity Reaction Status Date / Time Penicillins Allergy Verified 01/15/18 20:03 - Substance Abuse/Tx History Hx Alcohol Use: Yes (6/25 oz cans beer) Hx Substance Use: Yes Substance Use Type: Heroin (10 bags daily ) Hx Substance Use Treatment: Yes Mental Status Exam - Mental Status Exam Alert and Oriented to: Time, Place, Person Cognitive Function: Fair Patient Appearance: Well Groomed Mood: Apathetic, Sad, Anxious Affect: Appropriate, Inappropriate Patient Behavior: Appropriate, Cooperative Speech Pattern: Appropriate Voice Loudness: Normal Thought Process: Intact, Goal Oriented Thought Disorder: Not Present Hallucinations: Denies Suicidal Ideation: Denies Homicidal Ideation: Denies Insight/Judgement: Fair Sleep: Poorly, Difficulty falling asleep Appetite: Poor Muscle strength/Tone: Normal Gait/Station: Normal Psychiatric Findings - Problem List ([place] 1, 2,3) (1) Alcohol dependence Current Visit: Yes Status: Acute Qualifiers: Substance use status: uncomplicated Qualified Code(s): F10.20 - Alcohol dependence, uncomplicated (2) Nicotine dependence Current Visit: Yes Status: Acute Qualifiers: Nicotine product type: cigarettes Substance use status: in withdrawal Qualified Code(s): F17.213 - Nicotine dependence, cigarettes, with withdrawal (3) Opioid dependence Current Visit: Yes Status: Acute (4) Drug-induced mood disorder Current Visit: No Status: Acute (5) Insomnia Current Visit: No Status: Chronic Qualifiers: Insomnia type: unspecified Qualified Code(s): G47.00 - Insomnia, unspecified - Initial Treatment Plan Initial Treatment Plan: indications/properties of Gabapentin/Belsomra discussed , medication recommended, patient agreed with care plan, will start and monitor progress.
[2018-01-16] MEDS: SUVOREXANT 10 MG TABLET PO SCH (21:12)
[2018-01-16] MEDS: GABAPENTIN 100 MG CAPSULE (FP) PO SCH (21:12)
[2018-01-16] MEDS: THIAMINE HCL 100 MG TABLET (FP) PO SCH (21:12)
[2018-01-17] MEDS: GABAPENTIN 100 MG CAPSULE (FP) PO SCH ×3 (06:25→21:15)
[2018-01-17] MEDS: hydrOXYzine PAMOATE 50 MG CAPSULE (FP) PO PRN ×3 (06:27→21:15)
[2018-01-17] MEDS: PRENATAL VITAMINS W/ FOLIC ACID TABLET (FP) PO SCH (09:50)
[2018-01-17] MEDS: MINERAL OIL/PETROLAT/WATER TOPICAL CREAM 113 GM JAR TP SCH ×2 (09:50→21:16)
[2018-01-17] MEDS: ASPIRIN COATED 81 MG TABLET.EC PO SCH (09:50)
[2018-01-17] MEDS: TOLNAFTATE 1% CREAM 15 GM TUBE TP SCH ×2 (09:50→21:16)
[2018-01-17] MEDS: BACITRACIN 0.9 GM PACKET TP SCH (09:50)
[2018-01-17] MEDS: NICOTINE 14 MG/24 HOURS TOPICAL PATCH TD SCH (09:50)
--- NOTE | 2018-01-17 13:41 | PN ---
[facility] Progress Note Note: Patient presents with complains of nausea and vomiting x one day. Denies CP, SOB and dizziness. Vital Signs Temperature 97.8 F 01/17/18 06:46 Pulse Rate 81 01/17/18 06:46 Respiratory Rate 19 01/17/18 06:46 Blood Pressure 115/84 01/17/18 06:46 O2 Sat by Pulse Oximetry (%) Obj: General: alert and oriented. Sitting in chair, in no acute distress. Holding stomach and states he feels stomach sick Skin: warm and dry GI: soft, NT, no distention Ext: no edema A/P: Nausea and vomiting Will order stat dose of zofran 4mg increase oral fluids rest continue to monitor clinically
[2018-01-17] MEDS ORDERED: ONDANSETRON *ODT* 4 MG TABLET SL ONE (14:00)
[2018-01-17] MEDS ORDERED: ONDANSETRON 4 MG TABLET PO ONE (14:00)
--- NOTE | 2018-01-17 19:37 | PN ---
[facility] Progress Note Note: Patient reported to staff he was having chest pain. Patient was evaluated at the bedside. Patient reports LUQ pain, non-radiating, reports last BM this morning. Laboratory Last Values Urine Color Yellow 01/15/18 23:50 Urine Appearance Clear 01/15/18 23:50 Urine pH 6.0 (5.0-8.0) 01/15/18 23:50 Ur Specific [place] 1.015 (1.001-1.035) 01/15/18 23:50 Urine Protein Negative (NEGATIVE) 01/15/18 23:50 Urine Glucose (UA) Negative (NEGATIVE) 01/15/18 23:50 Urine Ketones Negative (NEGATIVE) 01/15/18 23:50 Urine Blood Negative (NEGATIVE) 01/15/18 23:50 Urine Nitrite Negative (NEGATIVE) 01/15/18 23:50 Urine Bilirubin Negative (<2.0 mg/dL) 01/15/18 23:50 Urine Urobilinogen Negative mg/dL (0.2-1.0) 01/15/18 23:50 Ur Leukocyte Esterase Negative (NEGATIVE) 01/15/18 23:50 A/P V/S BP 141/86, P 65, RR 18 T 98.1 Patient AOx3 in no apparent distress normal HR and Rhythm lungs sounds clear throughout BS x 4, non- distended skin intact, no color changes, pulses present EKG: NSR ( Normal EKG) Plan: Increase fluids Continue to monitor for worsening symptoms If symptoms worsen patient will be transported to [place].
[2018-01-17] MEDS: THIAMINE HCL 100 MG TABLET (FP) PO SCH (21:15)
[2018-01-17] MEDS: SUVOREXANT 10 MG TABLET PO SCH (21:15)
[2018-01-18] MEDS: GABAPENTIN 100 MG CAPSULE (FP) PO SCH (06:19)
[2018-01-18 06:40] VITALS: BP 128/87; PULSE 72; TEMP 98.5
[2018-01-18] MEDS: ASPIRIN COATED 81 MG TABLET.EC PO SCH (09:56)
[2018-01-18] MEDS: TOLNAFTATE 1% CREAM 15 GM TUBE TP SCH (09:56)
[2018-01-18] MEDS: BACITRACIN 0.9 GM PACKET TP SCH (09:56)
[2018-01-18] MEDS: PRENATAL VITAMINS W/ FOLIC ACID TABLET (FP) PO SCH (09:56)
[2018-01-18] MEDS: MINERAL OIL/PETROLAT/WATER TOPICAL CREAM 113 GM JAR TP SCH (09:56)
[2018-01-18] MEDS: NICOTINE 14 MG/24 HOURS TOPICAL PATCH TD SCH (09:57)
--- NOTE | 2018-01-18 12:01 | EKG ---
Test Reason : Blood Pressure : / mmHG Vent. Rate : 067 BPM Atrial Rate : 067 BPM P-R Int : 158 ms QRS Dur : 092 ms QT Int : 406 ms P-R-T Axes : 067 024 023 degrees QTc Int : 429 ms NORMAL SINUS RHYTHM NORMAL ECG WHEN COMPARED WITH ECG OF 15-JAN-2018 22:32, NO SIGNIFICANT CHANGE WAS FOUND Confirmed by NAYAN DOTSON MD ([id number]) on 01/18/2018 12:01:13 PM Referred By: Confirmed By:NAYAN DOTSON MD
--- NOTE | 2018-01-18 12:14 | PN ---
S Progress Note Note: patient signed out AMA this morning in stable condition, please see medical staff notes.
== END 2018-01-18 10:10 | disposition left against medical advice (07) | DRG 770 ==
LOC: YASAS 17:41 → Y5N 19:53
PROVIDERS: ADMIT Psychiatry & Neurology Psychiatry; ATTEND Psychiatry & Neurology Psychiatry
PROC: HZ42ZZZ Group Counseling for Substance Abuse Treatment, Cognitive-Behavioral (ICD-10-PCS; principal; 2018-01-15)
DX: F11.20 Opioid dependence, uncomplicated (principal); F10.20 Alcohol dependence, uncomplicated; F14.20 Cocaine dependence, uncomplicated; F17.213 Nicotine dependence, cigarettes, with withdrawal; F41.9 Anxiety disorder, unspecified; F19.24 Other psychoactive substance dependence with psychoactive substance-induced mood disorder; G47.00 Insomnia, unspecified; R11.2 Nausea with vomiting, unspecified; B35.3 Tinea pedis; I69.398 Other sequelae of cerebral infarction; M19.90 Unspecified osteoarthritis, unspecified site; K21.9 Gastro-esophageal reflux disease without esophagitis; J45.909 Unspecified asthma, uncomplicated; M25.561 Pain in right knee; G89.29 Other chronic pain; I83.93 Asymptomatic varicose veins of bilateral lower extremities; Z88.0 Allergy status to penicillin
CPT/HCPCS: 81003; 93005; 93010; Q0162

== ENCOUNTER 2018-12-31 16:55 | Inpatient (IN) | payer OTHER ==
[2018-12-31 20:41] VITALS: BMI 29.8
--- NOTE | 2018-12-31 21:28 | HP ---
COWS - Scale Resting Pulse: 0= [place] 80 or Below Sweatin=Flushed/Facial Moisture Restless Observation: 1= Difficult to Sit Still Pupil Size: 1= Pupils >than Normal Bone or Joint Aches: 2= Severe Diffuse Aches Runny Nose/ Eye Tearin= Nasal Congestion GI Upset > 30mins: 2= Nausea/Diarrhea Tremor Observation: 1= Tremor [place], Not Seen Yawning Observation: 1= 1-2x During Session Anxiety or Irritability: 1=Feels Anxious/Irritable Goose Flesh Skin: 0=Smooth Skin COWS Score: 12 CIWA Score Nausea/Vomitin Muscle Tremors: 2 Anxiety: 2 Agitation: 2 Paroxysmal Sweats: 2 Orientation: 0-Oriented Tacttile Disturbances: 2-Mild Itch/Numbness/Burn Auditory Disturbances: 2-Mild Harshness/Frighten Visual Disturbances: 2-Mild Sensitivity Headache: 2-Mild CIWA-Ar Total Score: 18 - Admission Criteria OASAS Guidelines: Admission for Medically Managed Detox: Requires at least one of the followin. CIWA greater than 12 2. Seizures within the past 24 hours 3. Delirium tremens within the past 24 hours 4. Hallucinations within the past 24 hours 5. Acute intervention needed for co occurring medical disorder 6. Acute intervention needed for co occurring psychiatric disorder 7. Severe withdrawal that cannot be handled at a lower level of care (continued vomiting, continued diarrhea, abnormal vital signs) requiring intravenous medication and/or fluids 8. Admission ROS S - HPI Chief Complaint: DEPENDENT ON HEROIN, ETOH, XANAX AND COCAINE Allergies/Adverse Reactions: Allergies Allergy/AdvReac Type Severity Reaction Status Date / Time Penicillins Allergy Verified 12/31/18 20:33 History of Present Illness: THE PT. IS REQUESTING ADMISSION TO THE DETOX UNIT AND CAME FOR H AND PE Exam Limitations: No Limitations - Ebola screening Have you traveled outside of the country in the last 21 days: No (N) Have you had contact with anyone from an Ebola affected area: No Have you been sick,other than usual withdrawal symptoms: No Do you have a fever: No - Review of Systems Constitutional: See HPI, Malaise, Weakness EENT: reports: See HPI, Blurred Vision Respiratory: reports: See HPI Cardiac: reports: See HPI GI: reports: See HPI, Nausea, Vomiting, Abdominal cramping : reports: See HPI Musculoskeletal: reports: See HPI, Muscle Pain, Muscle Weakness Integumentary: reports: See HPI, Sweating Neuro: reports: See HPI, Headache, Tremors, Weakness Endocrine: reports: See HPI Hematology: reports: See HPI Psychiatric: reports: Judgement Intact, Orientated x3, Anxious, Depressed Patient History - Patient Medical History Hx Anemia: No Hx Chronic Obstructive Pulmonary Disease (COPD): No Hx Cancer: No Hx Cardiac Disorders: No Hx Congestive Heart Failure: No Hx Hypertension: No Hx Hypercholesterolemia: No Hx Pacemaker: No HX Cerebrovascular Accident: Yes (left CVA 2010 with left visiual impairment ) Hx Seizures: No Hx Dementia: No Hx Diabetes: No Hx Gastrointestinal Disorders: Yes (acid reflux) Hx Liver Disease: No Hx Genitourinary Disorders: No Hx Sexually Transmitted Disorders: No Hx Renal Disease (ESRD): No Hx Thyroid Disease: No Hx Human Immunodeficiency Virus (HIV): No (last tested 02/2017) Hx Hepatitis C: No Hx Depression: Yes (IN THE PAST) Hx Suicide Attempt: No Hx Bipolar Disorder: No Hx Schizophrenia: No Other Medical History: ARTHRITIS - Patient Surgical History Past Surgical History: No Hx Neurologic Surgery: No Hx Cataract Extraction: No Hx Cardiac Surgery: No Hx Lung Surgery: No Hx Breast Surgery: No Hx Breast Biopsy: No Hx Abdominal Surgery: No Hx Appendectomy: No Hx Cholecystectomy: No Hx Genitourinary Surgery: No Hx Section: No Hx Orthopedic Surgery: Yes (both feet) Other Surgical History: repair of archillis tendon left 2016 Anesthesia Reaction: No - PPD History Results: c-xray 11/15/17 - Smoking Cessation Smoking history: Current every day smoker Have you smoked in the past 12 months: Yes Aproximately how many cigarettes per day: 10 Cigars Per Day: 0 Hx Chewing Tobacco Use: No Initiated information on smoking cessation: Yes 'Breaking Loose' booklet given: 12/31/18 - Substances abused Alcohol Substance route: Oral Frequency: Daily Amount used: 6-7 X 12 OZ VODKA Age of first use: 16 Date of last use: 12/31/18 Alprazolam (Xanax) Substance route: Oral Frequency: Daily Amount used: 2/2MG Age of first use: 51 Date of last use: 12/28/18 Heroin Other (specify): SNIFF Frequency: Daily Amount used: 6-7 BAGS Age of first use: 29 Date of last use: 12/31/18 Cocaine Substance route: Inhalation Frequency: 1-2 times per week Amount used: $20/EACH TIME Age of first use: 16 Date of last use: 12/31/18 Family Disease History - Family Disease History Family Disease History: Heart Disease: Mother, [place]: Father (), Brother, Other: Father Admission Physical Exam S - Vital Signs Vital Signs: Vital Signs - 24 hr 12/31/18 20:34 Temperature 97.4 F L Pulse Rate 64 Respiratory 18 Rate Blood Pressure 147/93 - Physical General Appearance: Yes: No Apparent Distress, Nourished, Appropriately Dressed , Obese, Tremorous, Anxious HEENTM: Yes: Hearing grossly Normal, Normocephalic, Normal Voice, MACK, Pharynx Normal Respiratory: Yes: Chest Non-Tender, Lungs Clear, Normal Breath Sounds, No Respiratory Distress, No Accessory Muscle Use Neck: Yes: No masses,lesions,Nodules, Supple, Trachea in good position Breast: Yes: Breast Exam Deferred, Axillae without masses Cardiology: Yes: Regular Rhythm, Regular Rate, S1, S2 Abdominal: Yes: Normal Bowel Sounds, Non Tender, Soft, Protuberent Back: Yes: Normal Inspection Musculoskeletal: Yes: full range of Motion, Muscle Pain, Muscle weakness Extremities: Yes: Normal Capillary Refill, Normal Range of Motion, Non-Tender, Tremors, Swelling 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, Fully Oriented, Alert, Motor Strength 5/5, Normal Response, Depressed Affect Integumentary: Yes: Normal Color, Warm, Moist Lymphatic: Yes: Within Normal Limits - Diagnostic (1) Alcohol dependence Current Visit: No Status: Chronic Qualifiers: Substance use status: uncomplicated Qualified Code(s): F10.20 - Alcohol dependence, uncomplicated (2) Cocaine dependence Current Visit: No Status: Chronic Qualifiers: Substance use status: uncomplicated Qualified Code(s): F14.20 - Cocaine dependence, uncomplicated (3) Nicotine dependence Current Visit: No Status: Chronic Qualifiers: Nicotine product type: cigarettes Substance use status: in withdrawal Qualified Code(s): F17.213 - Nicotine dependence, cigarettes, with withdrawal (4) Opioid dependence Current Visit: No Status: Chronic (5) Uncomplicated sedative, hypnotic or anxiolytic withdrawal Current Visit: No Status: Chronic (6) GERD (gastroesophageal reflux disease) Current Visit: No Status: Chronic Qualifiers: Esophagitis presence: esophagitis presence not specified Qualified Code(s) : K21.9 - Gastro-esophageal reflux disease without esophagitis Cleared for Admission S - Detox or Rehab [facility] Level of Care: Medically Supervised Detox Regimen/Protocol: Methadone/Valium Inpatient Rehab Admission - Rehab Decision to Admit Inpatient rehab admission?: No
[2018-12-31] MEDS ORDERED: IBUPROFEN 400 MG TABLET (FP) PO PRN (21:34)
[2018-12-31] MEDS ORDERED: NICOTINE POLACRILEX 2 MG GUM BUC PRN (21:34)
[2018-12-31] MEDS ORDERED: MENTHOL/PHENOL 1 EACH UD MM PRN (21:34)
[2018-12-31] MEDS ORDERED: METHOCARBAMOL 500 MG TABLET PO PRN (21:34)
[2018-12-31] MEDS ORDERED: MAG HYDROX/AL HYDROX/SIMETH 30 ML UNIT-DOSE CUP PO PRN (21:34)
[2018-12-31] MEDS ORDERED: BISMUTH SUBSALICYLATE 524 MG/30 ML UD PO PRN (21:34)
[2018-12-31] MEDS ORDERED: ACETAMINOPHEN 325 MG TABLET (FP) PO PRN ×2 (21:34)
[2018-12-31] MEDS ORDERED: MAGNESIUM CITRATE 300 ML BOTTLE PO PRN (21:34)
[2018-12-31] MEDS ORDERED: MAGNESIUM HYDROX 2400MG/30ML ORAL SUSPENSION 30 ML CUP PO PRN (21:34)
[2018-12-31] MEDS ORDERED: diazePAM 5 MG TABLET PO PRN (21:38)
[2018-12-31] MEDS ORDERED: diazePAM 5 MG TABLET PO ONE (21:38)
[2018-12-31] MEDS: THIAMINE HCL 100 MG TABLET (FP) PO SCH (23:15)
[2018-12-31] MEDS ORDERED: METHADONE HCL 10 MG TABLET (FOR DETOX USE ONLY) PO ONE (23:15)
[2018-12-31] MEDS: PANTOPRAZOLE 20 MG TABLET (FP) PO SCH (23:15)
[2018-12-31] MEDS: METHADONE HCL 10 MG TABLET (FOR DETOX USE ONLY) PO ONE ×2 (23:16→23:17)
[2018-12-31] MEDS: diazePAM 5 MG TABLET PO SCH (23:18)
[2019-01-01] MEDS: diazePAM 5 MG TABLET PO SCH (06:01)
[2019-01-01 09:52] LABS: ALBUMIN 3.2 g/dl (3.4-5.0); ALK PHOS 112 U/L (45-117); ANION GAP 8 MMOL/L (8-16); BILIRUBIN,TOTAL 0.4 mg/dL (0.2-1); BLOOD UREA NITROGEN 11 mg/dL (7-18); CALCIUM 8.8 mg/dL (8.5-10.1); CHLORIDE 99 mmol/L (98-107); CO2 28 mmol/L (21-32); CREATININE 0.7 mg/dL (0.55-1.3); GLUCOSE,RANDOM 93 mg/dL (74-106); POTASSIUM 3.9 mmol/L (3.5-5.1); SGOT/AST 32 U/L (15-37); SGPT/ALT 33 U/L (13-61); SODIUM 136 mmol/L (136-145); TOT PROT 6.8 g/dl (6.4-8.2)
[2019-01-01 09:56] LABS: HEMATOCRIT 41.5 % (35.4-49); HEMOGLOBIN 13.6 GM/dL (11.7-16.9); MCH 27.9 pg (25.7-33.7); MCHC 32.8 g/dl (32.0-35.9); MEAN PLT VOLUME 7.8 fl (7.5-11.1); PLATELET COUNT 256 K/MM3 (134-434); RBC 4.88 M/mm3 (4.00-5.60); RDW 14.1 % (11.9-15.9); WHITE BLOOD COUNT 4.1 K/mm3 (4.0-10.0)
[2019-01-01] MEDS ORDERED: METHADONE HCL 5 MG TABLET (FOR DETOX USE ONLY) PO ONE (10:00)
[2019-01-01] MEDS: NICOTINE 14 MG/24 HOURS TOPICAL PATCH TD SCH (10:07)
[2019-01-01] MEDS: PRENATAL VITAMINS W/ FOLIC ACID TABLET (FP) PO SCH (10:07)
[2019-01-01] MEDS: PANTOPRAZOLE 20 MG TABLET (FP) PO SCH ×2 (10:08→22:39)
[2019-01-01] MEDS ORDERED: MINERAL OIL/PETROLAT/WATER TOPICAL CREAM 454 GM JAR TP SCH (10:45)
[2019-01-01] MEDS: MINERAL OIL/PETROLAT/WATER TOPICAL CREAM 113 GM JAR TP SCH ×2 (12:21→22:40)
--- NOTE | 2019-01-01 14:53 | PN ---
[facility] CIWA - CIWA Score Nausea/Vomitin-No Nausea/No Vomiting Muscle Tremors: None Anxiety: 4-Mod. Anxious/Guarded Agitation: 3 Paroxysmal Sweats: 3 Orientation: 0-Oriented Tacttile Disturbances: 2-Mild Itch/Numbness/Burn Auditory Disturbances: 0-None Visual Disturbances: 3-Moderate Sensitivity Headache: 0-None Present CIWA-Ar Total Score: 15 BHS COWS - Scale Resting Pulse: 1= [place] 81-100 Sweatin= Chills/Flushing Restless Observation: 1= Difficult to Sit Still Pupil Size: 0= Normal to Room Light Bone or Joint Aches: 2= Severe Diffuse Aches Runny Nose/ Eye Tearin= None GI Upset > 30mins: 2= Nausea/Diarrhea Tremor Observation of Outstretched Hands: 0= None Yawning Observation: 1= 1-2x During Session Anxiety or Irritability: 2=Irritable/Anxious Goose Flesh Skin: 3=Piloe[place] COWS Score: 13 BHS Progress Note (SOAP) Subjective: Stomach Cramping, Diarrhea, Sweating, Anxious, Body Aches. Objective: PATIENT A & O X 3, OBSERVED AMBULATING ON UNIT UNASSISTED. IN NO ACUTE DISTRESS. 01/01/19 14:51 Vital Signs Temperature 98.2 F 01/01/19 13:24 Pulse Rate 87 01/01/19 13:24 Respiratory Rate 18 01/01/19 13:24 Blood Pressure 119/80 01/01/19 13:24 O2 Sat by Pulse Oximetry (%) Laboratory Tests 01/01/19 01/01/19 01/01/19 07:00 07:00 07:00 WBC 4.1 RBC 4.88 Hgb 13.6 Hct 41.5 MCV 85.0 MCH 27.9 MCHC 32.8 RDW 14.1 Plt Count 256 MPV 7.8 Sodium 136 Potassium 3.9 Chloride 99 Carbon Dioxide 28 Anion Gap 8 BUN 11 Creatinine 0.7 Creat Clearance w eGFR 115.43 Random Glucose 93 Calcium 8.8 Total Bilirubin 0.4 AST 32 ALT 33 Alkaline Phosphatase 112 Total Protein 6.8 Albumin 3.2 L RPR Titer Nonreactive LABS NOTED. Assessment: 01/01/19 14:52 WITHDRAWAL SYMPTOMS. Plan: CONTINUE DETOX. INCREASE DAILY PO FLUID / WATER INTAKE. PRN PEPTO-BISMOL PO FOR DIARRHEA.
[2019-01-01] MEDS: hydrOXYzine PAMOATE 25 MG CAPSULE (FP) PO PRN (15:54)
[2019-01-01] MEDS: COLLOIDAL OATMEAL 1 BAR EACH TP PRN (15:58)
[2019-01-01] MEDS: cloNIDine HCL 0.1 MG TABLET PO PRN (16:52)
[2019-01-01] MEDS: LORazepam 1 MG TABLET PO SCH ×2 (16:52→22:39)
[2019-01-01] MEDS: LORazepam 1 MG TABLET PO PRN (20:12)
[2019-01-01] MEDS: THIAMINE HCL 100 MG TABLET (FP) PO SCH (22:40)
[2019-01-01] MEDS: MELATONIN 5 MG TABLETS PO PRN (22:40)
[2019-01-02] MEDS: LORazepam 1 MG TABLET PO PRN (00:57)
[2019-01-02] MEDS: hydrOXYzine PAMOATE 25 MG CAPSULE (FP) PO PRN ×2 (03:23→14:33)
[2019-01-02] MEDS: LORazepam 1 MG TABLET PO SCH (05:43)
[2019-01-02] MEDS: cloNIDine HCL 0.1 MG TABLET PO PRN ×2 (05:48→17:01)
[2019-01-02] MEDS: PRENATAL VITAMINS W/ FOLIC ACID TABLET (FP) PO SCH (09:55)
[2019-01-02] MEDS: NICOTINE 14 MG/24 HOURS TOPICAL PATCH TD SCH (09:55)
[2019-01-02] MEDS: MINERAL OIL/PETROLAT/WATER TOPICAL CREAM 113 GM JAR TP SCH ×2 (09:56→22:26)
[2019-01-02] MEDS: PANTOPRAZOLE 20 MG TABLET (FP) PO SCH ×2 (09:56→22:25)
[2019-01-02] MEDS ORDERED: METHADONE HCL 10 MG TABLET (FOR DETOX USE ONLY) PO ONE (10:00)
[2019-01-02] MEDS: LORazepam 0.5 MG TABLET PO SCH ×3 (10:00→22:25)
[2019-01-02] MEDS ORDERED: diazePAM 5 MG TABLET PO SCH (10:00)
[2019-01-02] MEDS ORDERED: LORazepam 0.5 MG TABLET PO PRN (10:35)
--- NOTE | 2019-01-02 14:03 | PN ---
S CIWA - CIWA Score Nausea/Vomitin-No Nausea/No Vomiting Muscle Tremors: None Anxiety: 4-Mod. Anxious/Guarded Agitation: 0-Normal Activity Paroxysmal Sweats: 3 Orientation: 0-Oriented Tacttile Disturbances: 2-Mild Itch/Numbness/Burn Auditory Disturbances: 0-None Visual Disturbances: 1-Very Mild Sensitivity Headache: 0-None Present CIWA-Ar Total Score: 10 BHS COWS - Scale Resting Pulse: 1= [place] 81-100 Sweatin= Chills/Flushing Restless Observation: 0= Sits Still Pupil Size: 0= Normal to Room Light Bone or Joint Aches: 1= Mild Discomfort Runny Nose/ Eye Tearin= None GI Upset > 30mins: 2= Nausea/Diarrhea Tremor Observation of Outstretched Hands: 0= None Yawning Observation: 1= 1-2x During Session Anxiety or Irritability: 2=Irritable/Anxious Goose Flesh Skin: 0=Smooth Skin COWS Score: 8 BHS Progress Note (SOAP) Subjective: Stomach Cramping, Diarrhea, Anxious. Objective: PATIENT A & O X 3. IN NO ACUTE DISTRESS. 01/02/19 14:04 Vital Signs Temperature 97.9 F 01/02/19 13:12 Pulse Rate 86 01/02/19 13:12 Respiratory Rate 18 01/02/19 13:12 Blood Pressure 128/86 01/02/19 13:12 O2 Sat by Pulse Oximetry (%) Laboratory Tests 01/01/19 01/01/19 01/01/19 07:00 07:00 07:00 WBC 4.1 RBC 4.88 Hgb 13.6 Hct 41.5 MCV 85.0 MCH 27.9 MCHC 32.8 RDW 14.1 Plt Count 256 MPV 7.8 Sodium 136 Potassium 3.9 Chloride 99 Carbon Dioxide 28 Anion Gap 8 BUN 11 Creatinine 0.7 Creat Clearance w eGFR 115.43 Random Glucose 93 Calcium 8.8 Total Bilirubin 0.4 AST 32 ALT 33 Alkaline Phosphatase 112 Total Protein 6.8 Albumin 3.2 L RPR Titer Nonreactive LABS NOTED. Assessment: 01/02/19 14:04 WITHDRAWAL SYMPTOMS. Plan: CONTINUE DETOX. INCREASE DAILY PO FLUID / WATER INTAKE. PRN PEPTO-BISMOL PO FOR DIARRHEA.
[2019-01-02] MEDS ORDERED: LORazepam 1 MG TABLET PO ONE (19:09)
--- NOTE | 2019-01-02 19:15 | PN ---
[facility] Progress Note Note: Pt feels like he is in withdrawal- with stomach upset, nasal congestion, anxiety : pt is day #3 of 4 days of taper of alcohol and opioids. Pt is to be discharged tomorrow-to be seen by provider and reevaluated for withdrawal. Will given 1mg of Ativan now
[2019-01-02] MEDS: THIAMINE HCL 100 MG TABLET (FP) PO SCH (22:25)
[2019-01-02] MEDS: MELATONIN 5 MG TABLETS PO PRN (22:25)
[2019-01-02] MEDS: COLLOIDAL OATMEAL 1 BAR EACH TP PRN (22:32)
[2019-01-03] MEDS: hydrOXYzine PAMOATE 25 MG CAPSULE (FP) PO PRN (04:40)
[2019-01-03] MEDS: LORazepam 0.5 MG TABLET PO SCH (05:58)
[2019-01-03] MEDS ORDERED: METHADONE HCL 5 MG TABLET (FOR DETOX USE ONLY) PO ONE (06:00)
[2019-01-03] MEDS ORDERED: diazePAM 5 MG TABLET PO SCH (06:00)
[2019-01-03 06:23] VITALS: BP 153/98; PULSE 67; TEMP 97.5
--- NOTE | 2019-01-03 16:32 | DS ---
[facility] Detox Discharge Summary Admission Date: 12/31/18 Discharge Date: 01/03/19 - History Present History: Alcohol Dependence, Cocaine Dependence, Opioid Dependence, Sedative Dependence Additional Comments: PRIOR TO DISCHARGE FROM DETOX UNIT TODAY, PATIENT OFFERED OPPORTUNITY OF ADMISSION TO [facility] ([place], [place]). HOWEVER, PATIENT DECLINED TO ACCEPT AT THIS TIME, NOTING THAT HE WOULD CONSIDER APPLYING AT A LATER DATE. PATIENT RETURNING HOME. PATIENT ALSO ADVISED TO CONSIDER LOCAL 12-STEP / NA / AA OUTPATIENT SUPPORT GROUPS FOR AFTERCARE. PATIENT VERBALIZED UNDERSTANDING OF ALL RECOMMENDATIONS PRESENTED TO HIM PRIOR TO DISCHARGE FROM DETOX UNIT. PATIENT WAS DISCHARGED FORM DETOX UNIT IN STABLE MEDICAL CONDITION. Pertinent Past History: History of Left-Sided CVA (with Visual Impairment), Nicotine Dependence, G.E.R.D., Depression, Arthritis. - Physical Exam Results Vital Signs: Vital Signs Temperature 97.5 F L 01/03/19 06:23 Pulse Rate 67 01/03/19 06:23 Respiratory Rate 18 01/03/19 06:23 Blood Pressure 153/98 01/03/19 06:23 O2 Sat by Pulse Oximetry (%) Pertinent Admission Physical Exam Findings: WITHDRAWAL SYMPTOMS. Laboratory Tests 01/01/19 01/01/19 01/01/19 07:00 07:00 07:00 WBC 4.1 RBC 4.88 Hgb 13.6 Hct 41.5 MCV 85.0 MCH 27.9 MCHC 32.8 RDW 14.1 Plt Count 256 MPV 7.8 Sodium 136 Potassium 3.9 Chloride 99 Carbon Dioxide 28 Anion Gap 8 BUN 11 Creatinine 0.7 Creat Clearance w eGFR 115.43 Random Glucose 93 Calcium 8.8 Total Bilirubin 0.4 AST 32 ALT 33 Alkaline Phosphatase 112 Total Protein 6.8 Albumin 3.2 L RPR Titer Nonreactive LABS NOTED. - Treatment Hospital Course: Detox Protocol Followed, Detoxed Safely, Responded well, Discharged Condition Good Patient has Accepted a Rehab Referral to: PT. WILL CONSIDER REHAB ADMISSION IN FUTURE, ALSO ADVISED TO CONSIDER NA/AA - Medication Discharge Medications: Ambulatory Orders NK [No Known Home Medication] 12/31/18 - Diagnosis (1) Alcohol dependence Status: Chronic Qualifiers: Substance use status: uncomplicated Qualified Code(s): F10.20 - Alcohol dependence, uncomplicated (2) Cocaine dependence Status: Chronic Qualifiers: Substance use status: uncomplicated Qualified Code(s): F14.20 - Cocaine dependence, uncomplicated (3) GERD (gastroesophageal reflux disease) Status: Chronic Qualifiers: Esophagitis presence: esophagitis presence not specified Qualified Code(s) : K21.9 - Gastro-esophageal reflux disease without esophagitis (4) Nicotine dependence Status: Chronic Qualifiers: Nicotine product type: cigarettes Substance use status: in withdrawal Qualified Code(s): F17.213 - Nicotine dependence, cigarettes, with withdrawal (5) Opioid dependence Status: Chronic Qualifiers: Substance use status: uncomplicated Qualified Code(s): F11.20 - Opioid dependence, uncomplicated (6) Uncomplicated sedative, hypnotic or anxiolytic withdrawal Status: Chronic - AMA Did Patient Leave Against Medical Advice: No
== END 2019-01-03 09:55 | disposition home or self-care (01) | DRG 773 ==
LOC: YASAS 16:55 → Y6N 22:38
PROVIDERS: ADMIT Surgery; ATTEND Surgery
PROC: HZ2ZZZZ Detoxification Services for Substance Abuse Treatment (ICD-10-PCS; principal; 2018-12-31)
DX: F11.23 Opioid dependence with withdrawal (principal); F10.230 Alcohol dependence with withdrawal, uncomplicated; F13.230 Sedative, hypnotic or anxiolytic dependence with withdrawal, uncomplicated; F14.20 Cocaine dependence, uncomplicated; F32.9 Major depressive disorder, single episode, unspecified; K21.9 Gastro-esophageal reflux disease without esophagitis; M12.9 Arthropathy, unspecified; Z88.0 Allergy status to penicillin
CPT/HCPCS: 36415; 80053; 85027; 86593; J0735

== ENCOUNTER 2020-05-20 11:41 | Inpatient (IN) | payer OTHER ==
--- NOTE | 2020-05-20 12:26 | BHS.RME ---
Substance Use & Tx History - Substance Use History Alcohol Substance amount: 10 nips bourbon Frequency of use: Daily Substance route: Oral Date of Last Use: 05/19/20 Heroin Substance amount: 8-9 bags Frequency of use: Daily Substance route: Inhalation (ex: sniffing or snorting) Date of Last Use: 05/19/20 Xanax Substance amount: 2mg - 4-5 tabs Frequency of use: Daily Substance route: Oral Date of Last Use: 05/19/20 Nicotine Substance amount: 10 ciggs Frequency of use: Daily Substance route: Smoking Date of Last Use: 05/20/20 - Last Treatment Date of last treatment: 12/31-01/03/19 Treatment type: Substance Use Disorder ([facility]) Where was last treatment: Detox Physical/Psych/Mental Status - Behavior General Behavior: Increased activity (restlessness, agitation) Eye Contact: Normal - Cooperativeness Cooperativeness: Cooperative - Thinking Thought Processes: Tight, Logical, Goal Directed - Physical Health Problems Is patient presently having any pain?: No Does patient presently have any injuries (include location): No Does patient currently have a fever: No Is patient : No COWS - Scale Resting Pulse: 0= [place] 80 or Below Sweatin= Beads of Sweat on Face Restless Observation: 1= Difficult to Sit Still Pupil Size: 0= Normal to Room Light Bone or Joint Aches: 1= Mild Discomfort Runny Nose/ Eye Tearin= Nasal Congestion GI Upset > 30mins: 0= None Tremor Observation: 1= Tremor [place], Not Seen Yawning Observation: 0= None Anxiety or Irritability: 1=Feels Anxious/Irritable Goose Flesh Skin: 0=Smooth Skin COWS Score: 8 CIWA Nausea/Vomitin-No Nausea/No Vomiting Muscle Tremors: 1-None Visible, but [place] Anxiety: 3 Agitation: 3 Paroxysmal Sweats: 3 Orientation: 0-Oriented Tacttile Disturbances: 1-Very Mild Itch/Numbness Auditory Disturbances: 0-None Visual Disturbances: 0-None Headache: 0-None Present CIWA-Ar Total Score: 11
--- NOTE | 2020-05-20 13:14 | HP ---
COWS - Scale Resting Pulse: 0= [place] 80 or Below (Not in full withdrawal due to recent use of substances) Sweatin= Beads of Sweat on Face Restless Observation: 1= Difficult to Sit Still Pupil Size: 0= Normal to Room Light Bone or Joint Aches: 1= Mild Discomfort Runny Nose/ Eye Tearin= Nasal Congestion GI Upset > 30mins: 0= None Tremor Observation: 1= Tremor [place], Not Seen Yawning Observation: 0= None Anxiety or Irritability: 1=Feels Anxious/Irritable Goose Flesh Skin: 0=Smooth Skin COWS Score: 8 CIWA Score Nausea/Vomitin-No Nausea/No Vomiting (Not in full withdrawal due to recent use of substances) Muscle Tremors: 1-None Visible, but [place] Anxiety: 3 Agitation: 3 Paroxysmal Sweats: 3 Orientation: 0-Oriented Tacttile Disturbances: 1-Very Mild Itch/Numbness Auditory Disturbances: 0-None Visual Disturbances: 0-None Headache: 0-None Present CIWA-Ar Total Score: 11 - Admission Criteria OASAS Guidelines: Admission for Medically Managed Detox: Requires at least one of the followin. CIWA greater than 12 2. Seizures within the past 24 hours 3. Delirium tremens within the past 24 hours 4. Hallucinations within the past 24 hours 5. Acute intervention needed for co occurring medical disorder 6. Acute intervention needed for co occurring psychiatric disorder 7. Severe withdrawal that cannot be handled at a lower level of care (continued vomiting, continued diarrhea, abnormal vital signs) requiring intravenous medication and/or fluids 8. Admitting History and Physical - Admission History of Present Illness: Patient is a 59 y.o. M PMHx of COPD, b/l PVD, stroke 2010 (residual L eye decreased vision) presenting to [facility] for detox. Patient was examined in the room and is in no acute distress. 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 Heroin intranasal 9 bags a day, 1 overdose 7 weeks ago. Xanax 5 2mg tabs a day, 10 cigarettes a day. 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 No: Hyperlipdemia Pulmonary: Yes: COPD Gastrointestinal: No: GERD, GI Bleed Hepatobiliary: No: Hepatitis A, Hepatitis B, Hepatitis C Psych: Yes: Other (insomnia). No: Anxiety, Depression - Past Surgical History Additional Past Surgical History: bunyonectomy,L achilles tendon repair - Smoking History Smoking history: Current every day smoker Have you smoked in the past 12 months: Yes Aproximately how many cigarettes per day: 10 - Alcohol/Substance Use Hx Alcohol Use: Yes (6/25 oz cans beer) History of Substance Use: reports: Heroin - Social History Usual Living Arrangement: Yes: Alone ADL: Independent Occupation: none History of Recent Travel: No Admission ROS [facility] Allergies/Adverse Reactions: Allergies Allergy/AdvReac Type Severity Reaction Status Date / Time Penicillins Allergy Verified 12/31/18 20:33 Exam Limitations: No Limitations - Ebola screening Have you traveled outside of the country in the last 21 days: No Have you had contact with anyone from an Ebola affected area: No Have you been sick,other than usual withdrawal symptoms: No Do you have a fever: No - Review of Systems Constitutional: No Symptoms Reported EENT: denies: Blurred Vision, Double Vision Respiratory: reports: Cough. denies: Shortness of Breath Cardiac: denies: Chest Pain, Lightheadedness GI: denies: Constipated, Diarrhea, Nausea, Vomiting : denies: Burning, Dysuria Musculoskeletal: denies: Muscle Pain, Muscle Weakness Neuro: denies: Headache, Dizziness Hematology: denies: Easy Bleeding Psychiatric: reports: No Sypmtoms Reported, Judgement Intact, Mood/Affect Appropiate, Orientated x3 Patient History - Patient Medical History Hx Anemia: No Hx Asthma: No Hx Chronic Obstructive Pulmonary Disease (COPD): No Hx Cancer: No Hx Cardiac Disorders: No Hx Congestive Heart Failure: No Hx Hypertension: No Hx Hypercholesterolemia: No Hx Pacemaker: No HX Cerebrovascular Accident: Yes (left CVA 2009 with left visiual impairment ) Hx Seizures: No Hx Dementia: No Hx Diabetes: No Hx Gastrointestinal Disorders: Yes (acid reflux) Hx Liver Disease: No Hx Genitourinary Disorders: No Hx Sexually Transmitted Disorders: No Hx Renal Disease (ESRD): No Hx Thyroid Disease: No Hx Human Immunodeficiency Virus (HIV): No (last tested 02/2017) Hx Hepatitis C: No Hx Depression: Yes (IN THE PAST) Hx Suicide Attempt: No Hx Bipolar Disorder: No Hx Schizophrenia: No - Patient Surgical History Past Surgical History: No Hx Neurologic Surgery: No Hx Cataract Extraction: No Hx Cardiac Surgery: No Hx Lung Surgery: No Hx Breast Surgery: No Hx Breast Biopsy: No Hx Abdominal Surgery: No Hx Appendectomy: No Hx Cholecystectomy: No Hx Genitourinary Surgery: No Hx Section: No Hx Orthopedic Surgery: Yes (both feet) Other Surgical History: repair of archillis tendon left 2016 Anesthesia Reaction: No - PPD History Results: c-xray 11/15/17 - Smoking Cessation Smoking history: Current every day smoker Have you smoked in the past 12 months: Yes Aproximately how many cigarettes per day: 10 Cigars Per Day: 0 Hx Chewing Tobacco Use: No Initiated information on smoking cessation: Yes 'Breaking Loose' booklet given: 05/20/20 Admission Physical Exam S - Physical General Appearance: Yes: Within Normal Limits, No Apparent Distress, Nourished, Appropriately Dressed Respiratory: Yes: Within Normal Limits, Chest Non-Tender, No Respiratory Distress, No Accessory Muscle Use, Rhonchi Cardiology: Yes: Within Normal Limits, Regular Rhythm, Regular Rate. No: JVD Abdominal: Yes: Within Normal Limits, Normal Bowel Sounds, Non Tender, Flat, Soft. No: Tenderness Back: Yes: Within Normal Limits, Normal Inspection. No: CVA Tenderness Musculoskeletal: Yes: Within Normal Limits, full range of Motion, Gait Steady. No: Joint Stiffness, Muscle Pain Extremities: Yes: Pedal Edema, Swelling. No: Calf Tenderness Neurological: Yes: Within Normal Limits, Fully Oriented, Alert, Normal Mood/Affect, Normal Response Integumentary: Yes: Within Normal Limits, Normal Color, Warm. No: Cold - Diagnostic (1) Bilateral leg edema Current Visit: No Status: Acute (2) Drug-induced mood disorder Current Visit: No Status: Acute (3) Insomnia Current Visit: No Status: Acute Qualifiers: Insomnia type: unspecified Qualified Code(s): G47.00 - Insomnia, unspecified (4) Nausea & vomiting Current Visit: No Status: Acute Qualifiers: Vomiting Intractability: unspecified (5) Neuropathy Current Visit: No Status: Acute (6) Alcohol dependence Current Visit: No Status: Chronic Qualifiers: Substance use status: uncomplicated Qualified Code(s): F10.20 - Alcohol dependence, uncomplicated (7) Chronic pain of right knee Current Visit: No Status: Chronic (8) Insomnia Current Visit: No Status: Chronic Qualifiers: Insomnia type: unspecified Qualified Code(s): G47.00 - Insomnia, unspecified (9) Leg pain, bilateral Current Visit: No Status: Chronic (10) Nicotine dependence Current Visit: No Status: Chronic Qualifiers: Nicotine product type: cigarettes Substance use status: in withdrawal Qualified Code(s): F17.213 - Nicotine dependence, cigarettes, with withdrawal (11) Opioid dependence Current Visit: No Status: Chronic Qualifiers: Substance use status: uncomplicated Qualified Code(s): F11.20 - Opioid dependence, uncomplicated (12) Tinea pedis Current Visit: No Status: Chronic Qualifiers: Laterality: bilateral Qualified Code(s): B35.3 - Tinea pedis (13) Uncomplicated sedative, hypnotic or anxiolytic withdrawal Current Visit: No Status: Chronic (14) Varicose veins of both lower extremities Current Visit: No Status: Chronic Cleared for Admission S - Detox or Rehab [facility] Level of Care: Medically Managed Detox Regimen/Protocol: Methadone/Librium Breathalyzer - Breathalyzer Breathalyzer: 0 Vital Signs - Vital Signs Vital signs refused: No Temperature: 97.3 F Pulse Rate: 63 Respiratory Rate: 18 Blood Pressure: 109/61 - Height Height: 1.83 m - Weight Weight: 92.533 kg - BMI Body Mass Index (BMI): 27.6 Urine Drug Screen - Test Device Lot number: [id number] Expiration date: 12/10/21 - Control Is test valid?: Yes - Results Drug screen NEGATIVE: No Urine drug screen results: ALBIN-Cocaine, FEN-Fentanyl, MOP-Opiates, BZO- Benzodiazepines Inpatient Rehab Admission - Rehab Decision to Admit Inpatient rehab admission?: No
[2020-05-20 13:24] VITALS: BMI 27.6
[2020-05-20] MEDS ORDERED: METHADONE HCL 10 MG TABLET (FOR DETOX USE ONLY) PO ONE (13:24)
[2020-05-20] MEDS ORDERED: cloNIDine HCL 0.1 MG TABLET PO PRN (13:24)
[2020-05-20] MEDS ORDERED: chlordiazePOXIDE HCL 25 MG CAPSULE PO PRN (13:24)
[2020-05-20] MEDS ORDERED: MAGNESIUM CITRATE 300 ML BOTTLE PO PRN (13:24)
[2020-05-20] MEDS ORDERED: BISMUTH SUBSALICYLATE 262 MG/15 ML BTL PO PRN (13:24)
[2020-05-20] MEDS ORDERED: MAG HYDROX/AL HYDROX/SIMETH 30 ML UNIT-DOSE CUP PO PRN (13:24)
[2020-05-20] MEDS ORDERED: MAGNESIUM HYDROX 2400MG/30ML ORAL SUSPENSION 30 ML CUP PO PRN (13:24)
[2020-05-20] MEDS ORDERED: NICOTINE POLACRILEX 2 MG GUM BUC PRN (13:24)
[2020-05-20] MEDS ORDERED: ACETAMINOPHEN 325 MG TABLET (FP) PO PRN ×2 (13:24)
[2020-05-20] MEDS ORDERED: ONDANSETRON *ODT* 4 MG TABLET SL PRN (13:24)
[2020-05-20] MEDS ORDERED: HYDROCORTISONE 0.5% TOPICAL CREAM 30 GM TUBE TP PRN (14:20)
--- NOTE | 2020-05-20 14:42 | EKG ---
Test Reason : Blood Pressure : / mmHG Vent. Rate : 053 BPM Atrial Rate : 053 BPM P-R Int : 166 ms QRS Dur : 108 ms QT Int : 454 ms P-R-T Axes : 071 022 004 degrees QTc Int : 426 ms SINUS BRADYCARDIA OTHERWISE NORMAL ECG WHEN COMPARED WITH ECG OF 17-JAN-2018 19:12, NO SIGNIFICANT CHANGE WAS FOUND Confirmed by MD AVIVA, AC ([id number]) on 05/20/2020 2:42:29 PM Referred By: Confirmed By:AC CHICAS MD
--- OUTSIDE RECORDS SUMMARY | 2020-05-20 15:18 | XMS ---
:1960 Author Organization [facility] Support Name Relationship Address Phone UE Unavailable Unavailable Unavailable AKOSUA AJ COUSIN [address] [phone] [place] [address] Re-disclosure Warning The records that you are about to access may contain information from federally- assisted alcohol or drug abuse programs. If such information is present, then the following federally mandated warning applies: This information has been disclosed to you from records protected by federal confidentiality rules (42 CFR part 2). The federal rules prohibit you from making any further disclosure of this information unless further disclosure is expressly permitted by the written consent of the person to whom it pertains or as otherwise permitted by 42 CFR part 2. A general authorization for the release of medical or other information is NOT sufficient for this purpose. The Federal rules restrict any use of the information to criminally investigate or prosecute any alcohol or drug abuse patient.The records that you are about to access may contain highly sensitive health information, the redisclosure of which is protected by Article 27-F of the [facility] Public Health law. If you continue you may haveaccess to information: Regarding HIV / AIDS; Provided by facilities licensed or operated by the [facility] Office of Mental Health; or Provided by the [facility] Office for People With Developmental Disabilities. If such information is present, then the following [facility] mandated warning applies: This information has been disclosed to you from confidential records which are protected by state law. State law prohibits you from making any further disclosure of this information without the specific written consent of the person to whom it pertains, or as otherwise permitted by law. Any unauthorized further disclosure in violation of state law may result in a fine or half-way sentence or both. A general authorization for the release of medical or other information is NOT sufficient authorization for further disclosure. Insurance Providers Payer name Policy type Policy ID Covered Covered republican's Policy P valdemar / Coverage republican ID relationship to Moya Inf ormation type moya MARIN [id number] 000 HEALTH NON CAP Results ID Date Data Source [id number] 05/18/2020 08:34:00 PM EDT [facility] Name Value Range Interpretation Description Data Sup porting Code Source(s) Document(s ) SARS-CoV-2 [facility] (COVID-19) RNA panel - Unspecified specimen by SHALINI with probe detection This lab was ordered by [facility] and reported by [facility]. ID Date Data Source [id number] 03/17/2020 03:52:00 PM EDT [facility] Name Value Range Interpretation Description Data Sup porting Code Source(s) Document(s ) SARS [facility] Coronavirus 2 RNA Presence Respiratory Specimen SHALINI Probe Detection This lab was ordered by [facility] and rep orted by [facility]. Procedure
--- NOTE | 2020-05-20 15:24 | PN ---
Teaching Attending Note Name of Resident: Cj Seo ATTENDING PHYSICIAN STATEMENT I saw and evaluated the patient. I reviewed the resident's note and discussed the case with the resident. I agree with the resident's findings and plan as documented. SUBJECTIVE: OBJECTIVE: ASSESSMENT AND PLAN: Patient is a 59 y.o. M PMHx of COPD, b/l PVD, stroke 2009 (residual L eye decreased vision) presenting to [facility] for detox. Patient was examined in the room and is in no acute distress. 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 Heroin intranasal 9 bags a day, 1 overdose 7 weeks ago. Xanax 5 2mg tabs a day, 10 cigarettes a day. Imp 1. Opioid use disorder, withdrawal 2. Alcohol use disorder, withdrawal 3. sedative use disorder Plan 1. Methadone detox protocol 2. Librium detox protocol
[2020-05-20] MEDS: COLLOIDAL OATMEAL 1 BAR EACH TP PRN (15:33)
[2020-05-20] MEDS: hydrOXYzine PAMOATE 25 MG CAPSULE (FP) PO SCH ×3 (15:34→22:07)
[2020-05-20] MEDS: chlordiazePOXIDE HCL 25 MG CAPSULE PO SCH ×2 (17:36→22:07)
[2020-05-20] MEDS: VITAMINS A AND D TOPICAL OINTMENT 60 GM TUBE TP SCH ×2 (17:36→23:38)
[2020-05-20 19:34] LABS: HEMATOCRIT 37.8 % (35.4-49); HEMOGLOBIN 12.4 GM/dL (11.7-16.9); MCH 28.3 pg (25.7-33.7); MCHC 32.9 g/dl (32.0-35.9); MEAN CELL VOLUME 86.2 fl (80-96); MEAN PLT VOLUME 8.5 fl (7.5-11.1); PLATELET COUNT 312 K/MM3 (134-434); RBC 4.39 M/mm3 (4.00-5.60); RDW 13.4 % (11.9-15.9); WHITE BLOOD COUNT 5.6 K/mm3 (4.0-10.0)
[2020-05-20 19:51] LABS: ALBUMIN 3.4 g/dl (3.4-5.0); CALCIUM 9.2 mg/dL (8.5-10.1); CREATININE 0.8 mg/dL (0.55-1.3); POTASSIUM 3.8 mmol/L (3.5-5.1)
[2020-05-20 19:54] LABS: BILIRUBIN,TOTAL 1.2 mg/dL (0.2-1)
[2020-05-20] MEDS: CLOTRIMAZOLE 1% CREAM 15 GM TUBE TP SCH (22:06)
[2020-05-20] MEDS: THIAMINE HCL 100 MG TABLET (FP) PO SCH (22:07)
[2020-05-20] MEDS: MELATONIN 5 MG TABLETS PO SCH (22:07)
[2020-05-21] MEDS: chlordiazePOXIDE HCL 25 MG CAPSULE PO SCH (07:17)
[2020-05-21] MEDS: VITAMINS A AND D TOPICAL OINTMENT 60 GM TUBE TP SCH ×4 (07:17→23:43)
[2020-05-21] MEDS: hydrOXYzine PAMOATE 25 MG CAPSULE (FP) PO SCH ×5 (07:17→22:08)
[2020-05-21] MEDS ORDERED: METHADONE HCL 10 MG TABLET (FOR DETOX USE ONLY) ONE (08:37)
[2020-05-21] MEDS ORDERED: METHADONE HCL 5 MG TABLET (FOR DETOX USE ONLY) ONE (08:38)
[2020-05-21] MEDS ORDERED: diazePAM 5 MG TABLET PO PRN (09:25)
[2020-05-21] MEDS ORDERED: METHADONE (DETOX) 20 MG, METHADONE (DETOX) 5 MG PO ONE (10:00)
[2020-05-21] MEDS: PRENATAL VITAMINS W/ FOLIC ACID TABLET (FP) PO SCH (10:35)
[2020-05-21] MEDS: diazePAM 5 MG TABLET PO SCH ×3 (10:35→22:08)
[2020-05-21] MEDS: NICOTINE 7 MG/24 HOURS TOPICAL PATCH TD SCH (10:36)
[2020-05-21] MEDS: CLOTRIMAZOLE 1% CREAM 15 GM TUBE TP SCH ×2 (10:37→22:08)
--- NOTE | 2020-05-21 11:54 | PN ---
S CIWA - CIWA Score Nausea/Vomitin Muscle Tremors: 2 Anxiety: 3 Agitation: 3 Paroxysmal Sweats: No Perspiration Orientation: 0-Oriented Tacttile Disturbances: 1-Very Mild Itch/Numbness Auditory Disturbances: 0-None Visual Disturbances: 0-None Headache: 2-Mild CIWA-Ar Total Score: 13 [facility] COWS - Scale Resting Pulse: 0= [place] 80 or Below Sweatin= No chills or Flushing Restless Observation: 0= Sits Still Pupil Size: 1= Pupils >than Normal Bone or Joint Aches: 2= Severe Diffuse Aches Runny Nose/ Eye Tearin= Runny Nose/Eyes GI Upset > 30mins: 3= Vomiting/Diarrhea Tremor Observation of Outstretched Hands: 2= Slight Tremor Visible Yawning Observation: 1= 1-2x During Session Anxiety or Irritability: 2=Irritable/Anxious Goose Flesh Skin: 0=Smooth Skin COWS Score: 13 S Progress Note (SOAP) Subjective: alert,irritable,anxious,interrupted sleep,tremor,pain in the body and aisha k,aching pain Objective: 05/21/20 15:39 Vital Signs Temperature 97.3 F L 05/21/20 12:33 Pulse Rate 49 L 05/21/20 12:33 Respiratory Rate 18 05/21/20 12:33 Blood Pressure 105/68 05/21/20 12:33 O2 Sat by Pulse Oximetry (%) 97 05/21/20 12:33 Laboratory Last Values WBC 5.6 K/mm3 (4.0-10.0) 05/20/20 13:40 RBC 4.39 M/mm3 (4.00-5.60) 05/20/20 13:40 Hgb 12.4 GM/dL (11.7-16.9) 05/20/20 13:40 Hct 37.8 % (35.4-49) 05/20/20 13:40 MCV 86.2 fl (80-96) 05/20/20 13:40 MCH 28.3 pg (25.7-33.7) 05/20/20 13:40 MCHC 32.9 g/dl (32.0-35.9) 05/20/20 13:40 RDW 13.4 % (11.9-15.9) 05/20/20 13:40 Plt Count 312 K/MM3 (134-434) D 05/20/20 13:40 MPV 8.5 fl (7.5-11.1) 05/20/20 13:40 Sodium 132 mmol/L (136-145) L 05/20/20 13:40 Potassium 3.8 mmol/L (3.5-5.1) 05/20/20 13:40 Chloride 93 mmol/L (98-107) L 05/20/20 13:40 Carbon Dioxide 32 mmol/L (21-32) 05/20/20 13:40 Anion Gap 7 MMOL/L (8-16) L 05/20/20 13:40 BUN 15.0 mg/dL (7-18) 05/20/20 13:40 Creatinine 0.8 mg/dL (0.55-1.3) 05/20/20 13:40 Est GFR (CKD-EPI)AfAm 112.53 05/20/20 13:40 Est GFR (CKD-EPI)NonAf 97.10 05/20/20 13:40 Random Glucose 130 mg/dL (74-106) H 05/20/20 13:40 Calcium 9.2 mg/dL (8.5-10.1) 05/20/20 13:40 Total Bilirubin 1.2 mg/dL (0.2-1) H 05/20/20 13:40 AST 20 U/L (15-37) 05/20/20 13:40 ALT 21 U/L (13-61) 05/20/20 13:40 Alkaline Phosphatase 101 U/L (45-117) 05/20/20 13:40 Total Protein 7.0 g/dl (6.4-8.2) 05/20/20 13:40 Albumin 3.4 g/dl (3.4-5.0) 05/20/20 13:40 Syphilis Serology Non-reactive (NONREACTIVE) 05/20/20 13:40 COVID-19 (SHALINI) Not detected (Not Detected) 05/20/20 13:45 HIV Ag/Ab Combo Qual Negative (NEGATIVE) 05/20/20 13:40 Assessment: 05/21/20 15:41 withdrawal symptom Plan: continue detox,would like regimen to change to methadone and valium instead of methadone and librium,glucose 130,na 132 hyponatremia, repeat bgm,fasting glucose in am
[2020-05-21] MEDS ORDERED: PNEUMOC 13-VAL CONJ-DIP CRM/PF 0.5 ML DISP.SYRIN IM ONE (12:00)
--- NOTE | 2020-05-21 14:06 | CONSULT ---
[facility] Psychiatric Consult - Data Date of interview: 05/21/20 Admission source: [facility] Identifying data: Vending Route Driver approached patient twice for psychiatric consultation. Patient stated he was too tired to talk. Psychiatric consultation refused.
[2020-05-21] MEDS: MENTHOL/PHENOL 1 EACH UD MM PRN (18:39)
[2020-05-21] MEDS ORDERED: MASKS NR ONE (18:42)
--- NOTE | 2020-05-21 19:17 | PN ---
[facility] Progress Note Note: pt requesting inhaler , h/o COPD P : albuterol ordered
[2020-05-21] MEDS: ALBUTEROL SO4 HFA INHALER IH PRN (19:40)
[2020-05-21] MEDS: MELATONIN 5 MG TABLETS PO SCH (22:08)
[2020-05-21] MEDS: THIAMINE HCL 100 MG TABLET (FP) PO SCH (22:08)
[2020-05-22] MEDS ORDERED: chlordiazePOXIDE HCL 25 MG CAPSULE PO SCH (05:00)
[2020-05-22] MEDS: hydrOXYzine PAMOATE 25 MG CAPSULE (FP) PO SCH ×5 (07:07→22:33)
[2020-05-22] MEDS: diazePAM 5 MG TABLET PO SCH (07:07)
[2020-05-22] MEDS: VITAMINS A AND D TOPICAL OINTMENT 60 GM TUBE TP SCH ×4 (07:58→23:26)
--- NOTE | 2020-05-22 09:48 | PN ---
S CIWA - CIWA Score Nausea/Vomitin-Mild Nausea/No Vomiting Muscle Tremors: 2 Anxiety: 2 Agitation: 2 Paroxysmal Sweats: No Perspiration Orientation: 0-Oriented Tacttile Disturbances: 1-Very Mild Itch/Numbness Auditory Disturbances: 1-Very Mild Visual Disturbances: 1-Very Mild Sensitivity Headache: 2-Mild CIWA-Ar Total Score: 12 [facility] COWS - Scale Resting Pulse: 0= [place] 80 or Below Sweatin= No chills or Flushing Restless Observation: 0= Sits Still Pupil Size: 1= Pupils >than Normal Bone or Joint Aches: 1= Mild Discomfort Runny Nose/ Eye Tearin= Nasal Congestion GI Upset > 30mins: 1= Stomach Cramp Tremor Observation of Outstretched Hands: 2= Slight Tremor Visible Yawning Observation: 1= 1-2x During Session Anxiety or Irritability: 2=Irritable/Anxious Goose Flesh Skin: 0=Smooth Skin COWS Score: 9 S Progress Note (SOAP) Subjective: alert,irritable,anxious,interrupted sleep,pain in the body and back Objective: 05/22/20 15:25 Vital Signs Temperature 96.4 F L 05/22/20 12:34 Pulse Rate 62 05/22/20 12:34 Respiratory Rate 18 05/22/20 12:34 Blood Pressure 123/74 05/22/20 12:34 O2 Sat by Pulse Oximetry (%) 99 05/22/20 12:34 Laboratory Results - last 24 hr 05/22/20 08:00 Sodium 137 Potassium 3.8 Chloride 98 Carbon Dioxide 33 H Anion Gap 6 L BUN 9.6 Creatinine 0.7 Est GFR (CKD-EPI)AfAm 118.88 Est GFR (CKD-EPI)NonAf 102.57 Random Glucose 72 L Fasting Glucose 72 L Calcium 8.5 Assessment: 05/22/20 15:26 withdrawal symptom,patient would like regimen to change for methadon and valium to methadone and librium Plan: on methadone and librium regimen by patient's request
[2020-05-22] MEDS ORDERED: chlordiazePOXIDE HCL 25 MG CAPSULE PO PRN (09:50)
[2020-05-22] MEDS ORDERED: METHADONE HCL 10 MG TABLET (FOR DETOX USE ONLY) PO ONE (10:00)
[2020-05-22] MEDS: NICOTINE 7 MG/24 HOURS TOPICAL PATCH TD SCH (10:44)
[2020-05-22] MEDS: chlordiazePOXIDE HCL 25 MG CAPSULE PO SCH ×3 (10:44→22:34)
[2020-05-22] MEDS: PRENATAL VITAMINS W/ FOLIC ACID TABLET (FP) PO SCH (10:44)
[2020-05-22] MEDS: CLOTRIMAZOLE 1% CREAM 15 GM TUBE TP SCH ×2 (10:45→22:36)
[2020-05-22 10:51] LABS: BLOOD UREA NITROGEN 9.6 mg/dL (7-18); CALCIUM 8.5 mg/dL (8.5-10.1); CREATININE 0.7 mg/dL (0.55-1.3); POTASSIUM 3.8 mmol/L (3.5-5.1)
[2020-05-22] MEDS: THIAMINE HCL 100 MG TABLET (FP) PO SCH (22:33)
[2020-05-22] MEDS: MELATONIN 5 MG TABLETS PO SCH (22:33)
[2020-05-23] MEDS ORDERED: chlordiazePOXIDE HCL 10 MG CAPSULE PO PRN
[2020-05-23] MEDS: METHOCARBAMOL 500 MG TABLET PO PRN ×2 (01:56→14:44)
[2020-05-23] MEDS: MENTHOL/PHENOL 1 EACH UD MM PRN (01:57)
[2020-05-23] MEDS ORDERED: chlordiazePOXIDE HCL 10 MG CAPSULE PO SCH (05:00)
[2020-05-23] MEDS ORDERED: diazePAM 5 MG TABLET PO SCH (06:00)
[2020-05-23] MEDS: hydrOXYzine PAMOATE 25 MG CAPSULE (FP) PO SCH ×5 (06:09→22:29)
[2020-05-23] MEDS: chlordiazePOXIDE HCL 25 MG CAPSULE PO SCH ×4 (06:09→22:30)
[2020-05-23] MEDS: COLLOIDAL OATMEAL 1 BAR EACH TP PRN (06:45)
[2020-05-23] MEDS: VITAMINS A AND D TOPICAL OINTMENT 60 GM TUBE TP SCH ×4 (06:45→23:01)
[2020-05-23] MEDS ORDERED: METHADONE HCL 10 MG TABLET (FOR DETOX USE ONLY) ONE (08:34)
[2020-05-23] MEDS ORDERED: METHADONE HCL 5 MG TABLET (FOR DETOX USE ONLY) ONE (08:34)
[2020-05-23] MEDS ORDERED: METHADONE (DETOX) 10 MG, METHADONE (DETOX) 5 MG PO ONE (10:00)
--- NOTE | 2020-05-23 10:11 | PN ---
S CIWA - CIWA Score Nausea/Vomitin-No Nausea/No Vomiting Muscle Tremors: None Anxiety: 3 Agitation: 0-Normal Activity Paroxysmal Sweats: 3 Orientation: 0-Oriented Tacttile Disturbances: 0-None Auditory Disturbances: 0-None Visual Disturbances: 0-None Headache: 2-Mild CIWA-Ar Total Score: 8 [facility] COWS - Scale Resting Pulse: 0= [place] 80 or Below Sweatin= No chills or Flushing Restless Observation: 1= Difficult to Sit Still Pupil Size: 0= Normal to Room Light Bone or Joint Aches: 2= Severe Diffuse Aches Runny Nose/ Eye Tearin= None GI Upset > 30mins: 0= None Tremor Observation of Outstretched Hands: 0= None Yawning Observation: 1= 1-2x During Session Anxiety or Irritability: 2=Irritable/Anxious Goose Flesh Skin: 0=Smooth Skin COWS Score: 6 [facility] Progress Note (SOAP) Subjective: c/o sweats, anxiety, headache, and muscle aches. Objective: 05/23/20 10:10 Vital Signs 05/23/20 05/23/20 06:26 08:38 Temperature 97.1 F L 98.2 F Pulse Rate 58 L 105 H Respiratory 18 20 Rate Blood Pressure 126/79 117/71 O2 Sat by Pulse 98 Oximetry (%) Laboratory Last Values WBC 5.6 K/mm3 (4.0-10.0) 05/20/20 13:40 RBC 4.39 M/mm3 (4.00-5.60) 05/20/20 13:40 Hgb 12.4 GM/dL (11.7-16.9) 05/20/20 13:40 Hct 37.8 % (35.4-49) 05/20/20 13:40 MCV 86.2 fl (80-96) 05/20/20 13:40 MCH 28.3 pg (25.7-33.7) 05/20/20 13:40 MCHC 32.9 g/dl (32.0-35.9) 05/20/20 13:40 RDW 13.4 % (11.9-15.9) 05/20/20 13:40 Plt Count 312 K/MM3 (134-434) D 05/20/20 13:40 MPV 8.5 fl (7.5-11.1) 05/20/20 13:40 Sodium 137 mmol/L (136-145) 05/22/20 08:00 Potassium 3.8 mmol/L (3.5-5.1) 05/22/20 08:00 Chloride 98 mmol/L (98-107) 05/22/20 08:00 Carbon Dioxide 33 mmol/L (21-32) H 05/22/20 08:00 Anion Gap 6 MMOL/L (8-16) L 05/22/20 08:00 BUN 9.6 mg/dL (7-18) 05/22/20 08:00 Creatinine 0.7 mg/dL (0.55-1.3) 05/22/20 08:00 Est GFR (CKD-EPI)AfAm 118.88 05/22/20 08:00 Est GFR (CKD-EPI)NonAf 102.57 05/22/20 08:00 Random Glucose 72 mg/dL (74-106) L 05/22/20 08:00 Fasting Glucose 72 mg/dL (74-106) L 05/22/20 08:00 Calcium 8.5 mg/dL (8.5-10.1) 05/22/20 08:00 Total Bilirubin 1.2 mg/dL (0.2-1) H 05/20/20 13:40 AST 20 U/L (15-37) 05/20/20 13:40 ALT 21 U/L (13-61) 05/20/20 13:40 Alkaline Phosphatase 101 U/L (45-117) 05/20/20 13:40 Total Protein 7.0 g/dl (6.4-8.2) 05/20/20 13:40 Albumin 3.4 g/dl (3.4-5.0) 05/20/20 13:40 Syphilis Serology Non-reactive (NONREACTIVE) 05/20/20 13:40 COVID-19 (SHALINI) Not detected (Not Detected) 05/20/20 13:45 HIV Ag/Ab Combo Qual Negative (NEGATIVE) 05/20/20 13:40 Labs noted. Assessment: 05/23/20 10:11 AOX3, in no acute respiratory distress. Full ROM, ambulating in the unit. Withdrawal symptoms. Plan: continue detox.
[2020-05-23] MEDS: PRENATAL VITAMINS W/ FOLIC ACID TABLET (FP) PO SCH (10:37)
[2020-05-23] MEDS: CLOTRIMAZOLE 1% CREAM 15 GM TUBE TP SCH ×2 (10:37→22:29)
[2020-05-23] MEDS: NICOTINE 7 MG/24 HOURS TOPICAL PATCH TD SCH (10:38)
[2020-05-23] MEDS: IBUPROFEN 400 MG TABLET (FP) PO PRN (14:43)
[2020-05-23] MEDS: ALBUTEROL SO4 HFA INHALER IH PRN (17:12)
[2020-05-23] MEDS ORDERED: MASKS NR ONE (21:00)
[2020-05-23] MEDS: MELATONIN 5 MG TABLETS PO SCH (22:29)
[2020-05-23] MEDS: THIAMINE HCL 100 MG TABLET (FP) PO SCH (22:29)
[2020-05-24] MEDS ORDERED: chlordiazePOXIDE HCL 10 MG CAPSULE PO SCH (05:00)
[2020-05-24] MEDS: hydrOXYzine PAMOATE 25 MG CAPSULE (FP) PO SCH ×5 (05:21→22:42)
[2020-05-24] MEDS: chlordiazePOXIDE HCL 25 MG CAPSULE PO SCH ×4 (05:21→22:42)
[2020-05-24] MEDS ORDERED: diazePAM 5 MG TABLET PO SCH (06:00)
[2020-05-24] MEDS: IBUPROFEN 400 MG TABLET (FP) PO PRN (06:17)
[2020-05-24] MEDS: METHOCARBAMOL 500 MG TABLET PO PRN (06:18)
[2020-05-24] MEDS: VITAMINS A AND D TOPICAL OINTMENT 60 GM TUBE TP SCH ×4 (06:28→23:30)
[2020-05-24] MEDS ORDERED: METHADONE HCL 10 MG TABLET (FOR DETOX USE ONLY) PO ONE (10:00)
[2020-05-24] MEDS: CLOTRIMAZOLE 1% CREAM 15 GM TUBE TP SCH ×2 (11:00→22:43)
[2020-05-24] MEDS: NICOTINE 7 MG/24 HOURS TOPICAL PATCH TD SCH (11:01)
[2020-05-24] MEDS: PRENATAL VITAMINS W/ FOLIC ACID TABLET (FP) PO SCH (11:06)
--- NOTE | 2020-05-24 12:50 | PN ---
[facility] CIWA - CIWA Score Nausea/Vomitin-No Nausea/No Vomiting Muscle Tremors: None Anxiety: 3 Agitation: 2 Paroxysmal Sweats: No Perspiration Orientation: 0-Oriented Tacttile Disturbances: 0-None Auditory Disturbances: 0-None Visual Disturbances: 0-None Headache: 0-None Present CIWA-Ar Total Score: 5 S COWS - Scale Resting Pulse: 0= [place] 80 or Below Sweatin= No chills or Flushing Restless Observation: 0= Sits Still Pupil Size: 0= Normal to Room Light Bone or Joint Aches: 1= Mild Discomfort Runny Nose/ Eye Tearin= Nasal Congestion GI Upset > 30mins: 1= Stomach Cramp Tremor Observation of Outstretched Hands: 0= None Yawning Observation: 0= None Anxiety or Irritability: 2=Irritable/Anxious Goose Flesh Skin: 0=Smooth Skin COWS Score: 5 [facility] Progress Note (SOAP) Subjective: 59 years old male was admitted on 05/20/20 for alcohol benzo opiate withdrawal sx management treating with librium and methadone detox regiment mr shaikh states that he has insomnia not able to sleep for weeks reports taking trazodone for sleep psychiatrist referral mr shaikh question that his private part does not goes up any more health teaching on risks of alcohol and opiate abuse mr shaikh requests xanax for sleep health teaching on risks of benzo abuse mr shaikh approach gag writer frequent for xanax through out the day with derogatory commend encourage mr shaikh focus on detox and establish strength for rehab Objective: 05/24/20 13:43 Vital Signs - 24 hr 05/23/20 05/23/20 05/24/20 16:41 20:55 06:13 Temperature 97.1 F L 97.3 F L 97.1 F L Pulse Rate 53 L 77 60 Respiratory 18 18 18 Rate Blood Pressure 115/71 114/72 140/90 O2 Sat by Pulse 100 98 Oximetry (%) 05/24/20 05/24/20 08:50 12:38 Temperature 97.6 F 97.1 F L Pulse Rate 73 121 H Respiratory 18 20 Rate Blood Pressure 107/66 117/67 O2 Sat by Pulse 100 Oximetry (%) Laboratory Tests 05/20/20 05/20/20 05/20/20 13:40 13:40 13:40 WBC 5.6 RBC 4.39 Hgb 12.4 Hct 37.8 MCV 86.2 MCH 28.3 MCHC 32.9 RDW 13.4 Plt Count 312 D MPV 8.5 Sodium 132 L Potassium 3.8 Chloride 93 L Carbon Dioxide 32 Anion Gap 7 L BUN 15.0 Creatinine 0.8 Est GFR (CKD-EPI)AfAm 112.53 Est GFR (CKD-EPI)NonAf 97.10 Random Glucose 130 H Fasting Glucose Calcium 9.2 Total Bilirubin 1.2 H AST 20 ALT 21 Alkaline Phosphatase 101 Total Protein 7.0 Albumin 3.4 Syphilis Serology Non-reactive COVID-19 (SHALINI) HIV Ag/Ab Combo Qual 05/20/20 05/20/20 05/22/20 13:40 13:45 08:00 WBC RBC Hgb Hct MCV MCH MCHC RDW Plt Count MPV Sodium 137 Potassium 3.8 Chloride 98 Carbon Dioxide 33 H Anion Gap 6 L BUN 9.6 Creatinine 0.7 Est GFR (CKD-EPI)AfAm 118.88 Est GFR (CKD-EPI)NonAf 102.57 Random Glucose 72 L Fasting Glucose 72 L Calcium 8.5 Total Bilirubin AST ALT Alkaline Phosphatase Total Protein Albumin Syphilis Serology COVID-19 (SHALINI) Not detected HIV Ag/Ab Combo Qual Negative lab noted Assessment: 05/24/20 13:44 alcohol benzo opiate withdrawal Plan: librium and methadone regiments
[2020-05-24] MEDS: MELATONIN 5 MG TABLETS PO SCH (22:42)
[2020-05-24] MEDS: THIAMINE HCL 100 MG TABLET (FP) PO SCH (22:42)
[2020-05-25] MEDS ORDERED: chlordiazePOXIDE HCL 10 MG CAPSULE PO PRN
[2020-05-25] MEDS ORDERED: chlordiazePOXIDE HCL 10 MG CAPSULE PO ONE (05:00)
[2020-05-25] MEDS ORDERED: chlordiazePOXIDE HCL 10 MG CAPSULE PO SCH (05:00)
[2020-05-25] MEDS: IBUPROFEN 400 MG TABLET (FP) PO PRN (05:14)
[2020-05-25] MEDS: hydrOXYzine PAMOATE 25 MG CAPSULE (FP) PO SCH (05:15)
[2020-05-25] MEDS: METHOCARBAMOL 500 MG TABLET PO PRN (05:15)
[2020-05-25] MEDS: VITAMINS A AND D TOPICAL OINTMENT 60 GM TUBE TP SCH (05:16)
[2020-05-25] MEDS ORDERED: METHADONE HCL 5 MG TABLET (FOR DETOX USE ONLY) PO ONE (06:00)
[2020-05-25] MEDS ORDERED: diazePAM 5 MG TABLET PO ONE (06:00)
[2020-05-25 09:29] VITALS: BP 121/83; PULSE 81; TEMP 97.8
--- NOTE | 2020-05-25 09:29 | PN ---
[facility] CIWA - CIWA Score Nausea/Vomitin-No Nausea/No Vomiting Muscle Tremors: None Anxiety: 1-Mildly Anxious Agitation: 0-Normal Activity Paroxysmal Sweats: No Perspiration Orientation: 0-Oriented Tacttile Disturbances: 0-None Auditory Disturbances: 0-None Visual Disturbances: 0-None Headache: 0-None Present CIWA-Ar Total Score: 1 [facility] COWS - Scale Resting Pulse: 1= NE 81-100 Sweatin= No chills or Flushing Restless Observation: 0= Sits Still Pupil Size: 0= Normal to Room Light Bone or Joint Aches: 0= None Runny Nose/ Eye Tearin= None GI Upset > 30mins: 0= None Tremor Observation of Outstretched Hands: 0= None Yawning Observation: 0= None Anxiety or Irritability: 0= None Goose Flesh Skin: 0=Smooth Skin COWS Score: 1 [facility] Progress Note (SOAP) Subjective: alert,no complaint Objective: 05/25/20 10:19 Vital Signs Temperature 97.8 F 05/25/20 08:35 Pulse Rate 81 05/25/20 08:35 Respiratory Rate 18 05/25/20 08:35 Blood Pressure 121/83 05/25/20 08:35 O2 Sat by Pulse Oximetry (%) 100 05/25/20 05:26 Assessment: 05/25/20 10:19 detox completed,no withdrawal symptom Plan: stable for discharge today,follow up with after care program as arrangement
--- NOTE | 2020-05-25 09:29 | DS ---
[facility] Detox Discharge Summary Admission Date: 05/20/20 Discharge Date: 05/25/20 - History Present History: Alcohol Dependence, Opioid Dependence Additional Comments: alert,oriented x 3 ambulation on the unit lung clear on auscultation bilaterally abdomen soft,no distension,no pain detox completed,no withdrawal symptom stable for discharge today decline rehab follow up with after care program as [facility] total time spending on discharge 35 minutes Pertinent Past History: gerd neuropathy varicose veins both legs bronchitis - Physical Exam Results Vital Signs: Vital Signs Temperature 97.8 F 05/25/20 08:35 Pulse Rate 81 05/25/20 08:35 Respiratory Rate 18 05/25/20 08:35 Blood Pressure 121/83 05/25/20 08:35 O2 Sat by Pulse Oximetry (%) 100 05/25/20 05:26 Pertinent Admission Physical Exam Findings: withdrawal signs and symptom Laboratory Last Values WBC 5.6 K/mm3 (4.0-10.0) 05/20/20 13:40 RBC 4.39 M/mm3 (4.00-5.60) 05/20/20 13:40 Hgb 12.4 GM/dL (11.7-16.9) 05/20/20 13:40 Hct 37.8 % (35.4-49) 05/20/20 13:40 MCV 86.2 fl (80-96) 05/20/20 13:40 MCH 28.3 pg (25.7-33.7) 05/20/20 13:40 MCHC 32.9 g/dl (32.0-35.9) 05/20/20 13:40 RDW 13.4 % (11.9-15.9) 05/20/20 13:40 Plt Count 312 K/MM3 (134-434) D 05/20/20 13:40 MPV 8.5 fl (7.5-11.1) 05/20/20 13:40 Sodium 137 mmol/L (136-145) 05/22/20 08:00 Potassium 3.8 mmol/L (3.5-5.1) 05/22/20 08:00 Chloride 98 mmol/L (98-107) 05/22/20 08:00 Carbon Dioxide 33 mmol/L (21-32) H 05/22/20 08:00 Anion Gap 6 MMOL/L (8-16) L 05/22/20 08:00 BUN 9.6 mg/dL (7-18) 05/22/20 08:00 Creatinine 0.7 mg/dL (0.55-1.3) 05/22/20 08:00 Est GFR (CKD-EPI)AfAm 118.88 05/22/20 08:00 Est GFR (CKD-EPI)NonAf 102.57 05/22/20 08:00 Random Glucose 72 mg/dL (74-106) L 05/22/20 08:00 Fasting Glucose 72 mg/dL (74-106) L 05/22/20 08:00 Calcium 8.5 mg/dL (8.5-10.1) 05/22/20 08:00 Total Bilirubin 1.2 mg/dL (0.2-1) H 05/20/20 13:40 AST 20 U/L (15-37) 05/20/20 13:40 ALT 21 U/L (13-61) 05/20/20 13:40 Alkaline Phosphatase 101 U/L (45-117) 05/20/20 13:40 Total Protein 7.0 g/dl (6.4-8.2) 05/20/20 13:40 Albumin 3.4 g/dl (3.4-5.0) 05/20/20 13:40 Syphilis Serology Non-reactive (NONREACTIVE) 05/20/20 13:40 COVID-19 (SHALINI) Not detected (Not Detected) 05/20/20 13:45 HIV Ag/Ab Combo Qual Negative (NEGATIVE) 05/20/20 13:40 Vital Signs Temperature 97.8 F 05/25/20 08:35 Pulse Rate 81 05/25/20 08:35 Respiratory Rate 18 05/25/20 08:35 Blood Pressure 121/83 05/25/20 08:35 O2 Sat by Pulse Oximetry (%) 100 05/25/20 05:26 - Treatment Hospital Course: Detox Protocol Followed, Detoxed Safely, Responded well, Discharged Condition Good Patient has Accepted a Rehab Referral to: declined - Medication Discharge Medications: Ambulatory Orders Albuterol Sulfate Inhaler - [Ventolin HFA Inhaler -] 1 - 2 inh PO PRN PRN #1 inhaler 05/25/20 - Diagnosis (1) Opioid dependence with withdrawal Status: Acute (2) Neuropathy Status: Acute (3) Alcohol dependence Status: Chronic Qualifiers: Substance use status: uncomplicated Qualified Code(s): F10.20 - Alcohol dependence, uncomplicated (4) Nicotine dependence Status: Chronic Qualifiers: Nicotine product type: cigarettes Substance use status: in withdrawal Qualified Code(s): F17.213 - Nicotine dependence, cigarettes, with withdrawal (5) Varicose veins of both lower extremities Status: Chronic - AMA Did Patient Leave Against Medical Advice: No
[2020-05-26] MEDS ORDERED: chlordiazePOXIDE HCL 10 MG CAPSULE PO SCH (05:00)
[2020-05-27] MEDS ORDERED: chlordiazePOXIDE HCL 10 MG CAPSULE PO ONE (05:00)
== END 2020-05-25 09:58 | disposition home or self-care (01) | DRG 773 ==
LOC: YASAS 11:41 → Y3N 13:58
PROVIDERS: ADMIT Allergy & Immunology; ATTEND Allergy & Immunology
PROC: HZ2ZZZZ Detoxification Services for Substance Abuse Treatment (ICD-10-PCS; principal; 2020-05-20)
DX: F10.230 Alcohol dependence with withdrawal, uncomplicated (principal); F11.23 Opioid dependence with withdrawal; F13.230 Sedative, hypnotic or anxiolytic dependence with withdrawal, uncomplicated; F17.210 Nicotine dependence, cigarettes, uncomplicated; F19.24 Other psychoactive substance dependence with psychoactive substance-induced mood disorder; E87.1 Hypo-osmolality and hyponatremia; G62.9 Polyneuropathy, unspecified; G47.00 Insomnia, unspecified; I10 Essential (primary) hypertension; J44.9 Chronic obstructive pulmonary disease, unspecified; K21.9 Gastro-esophageal reflux disease without esophagitis; I73.9 Peripheral vascular disease, unspecified; I83.93 Asymptomatic varicose veins of bilateral lower extremities; I69.898 Other sequelae of other cerebrovascular disease; H53.8 Other visual disturbances; B35.3 Tinea pedis; M79.604 Pain in right leg; M79.605 Pain in left leg; R73.9 Hyperglycemia, unspecified; R11.2 Nausea with vomiting, unspecified; R60.0 Localized edema; Z88.0 Allergy status to penicillin
CPT/HCPCS: 36415; 80048; 80053; 82947; 85027; 86780; 87389; 93005; 93010; U0003

== ENCOUNTER 2020-05-25 13:22 | Inpatient (IN) | payer OTHER ==
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
[2020-05-25] MEDS ORDERED: P-EPHED 60MG/TRIPROLIDI 2.5MG TABLET PO PRN (15:59)
[2020-05-25] MEDS ORDERED: MAGNESIUM HYDROX 2400MG/30ML ORAL SUSPENSION 30 ML CUP PO PRN (15:59)
[2020-05-25] MEDS ORDERED: MAGNESIUM CITRATE 300 ML BOTTLE PO PRN (15:59)
[2020-05-25] MEDS ORDERED: NICOTINE POLACRILEX 2 MG GUM BC PRN (15:59)
[2020-05-25] MEDS ORDERED: LOPERAMIDE HCL 2 MG CAPSULE PO PRN (15:59)
[2020-05-25 17:08] VITALS: BMI 29.0
[2020-05-25] MEDS: NICOTINE 14 MG/24 HOURS TOPICAL PATCH TD SCH (18:02)
[2020-05-25] MEDS: hydrOXYzine PAMOATE 25 MG CAPSULE (FP) PO SCH ×2 (18:23→21:28)
[2020-05-25] MEDS ORDERED: MASKS NR ONE (19:26)
[2020-05-25] MEDS: THIAMINE HCL 100 MG TABLET (FP) PO SCH (21:28)
[2020-05-25] MEDS ORDERED: MELATONIN 5 MG TABLETS PO SCH (22:00)
[2020-05-26] MEDS: hydrOXYzine PAMOATE 25 MG CAPSULE (FP) PO SCH ×5 (06:48→21:22)
--- NOTE | 2020-05-26 08:26 | PN ---
Teaching Attending Note Name of Resident: Marcelle Noonan ATTENDING PHYSICIAN STATEMENT I saw and evaluated the patient. I reviewed the resident's note and discussed the case with the resident. I agree with the resident's findings and plan as documented. SUBJECTIVE: OBJECTIVE: ASSESSMENT AND PLAN: 1. Alcohol use disorder 2. Opioid use disorder Plan 1. Admit to rehab
[2020-05-26 10:08] LABS: PH,URINE 8.5 (5.0-8.0); URINE APPEARANCE CLEAR; URINE BILIRUBIN NEGATIVE (NEGATIVE); URINE COLOR YELLOW; URINE GLUCOSE (UA) NEGATIVE (NEGATIVE); URINE KETONE NEGATIVE (NEGATIVE); URINE LEUK ESTERASE NEGATIVE (NEGATIVE); URINE NITRITE NEGATIVE (NEGATIVE); URINE PROTEIN NEGATIVE (NEGATIVE); URINE UROBILINOGEN 0.2 mg/dL (0.2-1.0)
[2020-05-26] MEDS: PRENATAL VITAMINS W/ FOLIC ACID TABLET (FP) PO SCH (10:56)
[2020-05-26] MEDS: NICOTINE 14 MG/24 HOURS TOPICAL PATCH TD SCH (10:57)
[2020-05-26] MEDS: guaiFENesin 200 MG/10 ML 10 ML UNIT-DOSE CUPS PO PRN (11:19)
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
[2020-05-26] MEDS: THIAMINE HCL 100 MG TABLET (FP) PO SCH (21:22)
[2020-05-26] MEDS: SUVOREXANT 10 MG TABLET PO PRN (21:23)
[2020-05-26] MEDS: METHYL SALICYLATE/MENTHOL OINT 30 GM TUBE TP SCH (21:24)
[2020-05-27] MEDS: hydrOXYzine PAMOATE 25 MG CAPSULE (FP) PO SCH ×5 (06:40→21:25)
[2020-05-27] MEDS: COLLOIDAL OATMEAL 1 BAR EACH TP PRN (09:10)
[2020-05-27] MEDS: PRENATAL VITAMINS W/ FOLIC ACID TABLET (FP) PO SCH (09:11)
[2020-05-27] MEDS: ALBUTEROL SO4 HFA INHALER IH PRN (09:13)
[2020-05-27] MEDS: METHYL SALICYLATE/MENTHOL OINT 30 GM TUBE TP SCH ×2 (09:14→21:25)
[2020-05-27] MEDS: NICOTINE 14 MG/24 HOURS TOPICAL PATCH TD SCH (09:14)
[2020-05-27] MEDS ORDERED: PT OWN MED DRAWER 7, Y5N ONE (18:15)
[2020-05-27] MEDS: VITAMINS A AND D TOPICAL OINTMENT 60 GM TUBE TP SCH ×2 (18:42→23:13)
[2020-05-27] MEDS ORDERED: MASKS NR ONE (21:24)
[2020-05-27] MEDS: THIAMINE HCL 100 MG TABLET (FP) PO SCH (21:25)
[2020-05-27] MEDS: TOLNAFTATE 1% CREAM 15 GM TUBE TP SCH (21:26)
[2020-05-27] MEDS: SUVOREXANT 10 MG TABLET PO PRN (21:27)
[2020-05-28] MEDS: hydrOXYzine PAMOATE 25 MG CAPSULE (FP) PO SCH ×5 (06:05→21:30)
[2020-05-28] MEDS: VITAMINS A AND D TOPICAL OINTMENT 60 GM TUBE TP SCH ×4 (06:05→23:45)
[2020-05-28] MEDS: PRENATAL VITAMINS W/ FOLIC ACID TABLET (FP) PO SCH (10:17)
[2020-05-28] MEDS: NICOTINE 14 MG/24 HOURS TOPICAL PATCH TD SCH (10:17)
[2020-05-28] MEDS: TOLNAFTATE 1% CREAM 15 GM TUBE TP SCH ×2 (10:17→21:30)
[2020-05-28] MEDS: METHYL SALICYLATE/MENTHOL OINT 30 GM TUBE TP SCH ×2 (10:18→21:30)
[2020-05-28] MEDS: TETRAHYDROZOLINE HCL EYE DROPS OD PRN (11:54)
[2020-05-28] MEDS: THIAMINE HCL 100 MG TABLET (FP) PO SCH (21:28)
[2020-05-28] MEDS ORDERED: PT OWN MED DRAWER 7, Y5N ONE (21:30)
[2020-05-28] MEDS: SUVOREXANT 10 MG TABLET PO PRN (23:41)
[2020-05-29] MEDS ORDERED: PT OWN MED DRAWER 7, Y5N ONE ×2 (06:08→21:47)
[2020-05-29] MEDS: VITAMINS A AND D TOPICAL OINTMENT 60 GM TUBE TP SCH ×3 (06:18→17:42)
[2020-05-29] MEDS: hydrOXYzine PAMOATE 25 MG CAPSULE (FP) PO SCH ×5 (06:18→21:48)
[2020-05-29] MEDS: PRENATAL VITAMINS W/ FOLIC ACID TABLET (FP) PO SCH (10:28)
[2020-05-29] MEDS: NICOTINE 14 MG/24 HOURS TOPICAL PATCH TD SCH (10:28)
[2020-05-29] MEDS: TETRAHYDROZOLINE HCL EYE DROPS OD PRN (10:29)
[2020-05-29] MEDS: METHYL SALICYLATE/MENTHOL OINT 30 GM TUBE TP SCH ×2 (10:30→21:46)
[2020-05-29] MEDS: guaiFENesin 200 MG/10 ML 10 ML UNIT-DOSE CUPS PO PRN ×2 (14:26→23:05)
[2020-05-29] MEDS: OMEGA-3 ACID ETHYL ESTERS (FATTY-ACIDS) 1 GM CAPSULE (FP) PO SCH (21:47)
[2020-05-29] MEDS: THIAMINE HCL 100 MG TABLET (FP) PO SCH (21:48)
[2020-05-29] MEDS ORDERED: SUVOREXANT 10 MG TABLET PO PRN (22:00)
[2020-05-30] MEDS: COLLOIDAL OATMEAL 1 BAR EACH TP PRN (05:50)
[2020-05-30] MEDS: hydrOXYzine PAMOATE 25 MG CAPSULE (FP) PO SCH ×5 (06:05→22:26)
[2020-05-30] MEDS: VITAMINS A AND D TOPICAL OINTMENT 60 GM TUBE TP SCH ×4 (06:05→18:47)
[2020-05-30] MEDS: TOLNAFTATE 1% CREAM 15 GM TUBE TP SCH (06:05)
[2020-05-30] MEDS: guaiFENesin 200 MG/10 ML 10 ML UNIT-DOSE CUPS PO PRN (07:26)
[2020-05-30] MEDS ORDERED: BENZOCAINE/MENTH/CETYLPYRD CL 1 EACH LOZENGE MM PRN (09:06)
[2020-05-30] MEDS: METHYL SALICYLATE/MENTHOL OINT 30 GM TUBE TP SCH ×2 (10:02→22:25)
[2020-05-30] MEDS: NICOTINE 14 MG/24 HOURS TOPICAL PATCH TD SCH (10:02)
[2020-05-30] MEDS: OMEGA-3 ACID ETHYL ESTERS (FATTY-ACIDS) 1 GM CAPSULE (FP) PO SCH ×2 (10:02→22:28)
[2020-05-30] MEDS: CHOLECALCIFEROL (VIT D3) 400 UNIT (10 MCG) TABLET PO SCH (10:02)
[2020-05-30] MEDS: PRENATAL VITAMINS W/ FOLIC ACID TABLET (FP) PO SCH (10:02)
[2020-05-30] MEDS: TETRAHYDROZOLINE HCL EYE DROPS OD PRN (10:03)
[2020-05-30] MEDS: MAG HYDROX/AL HYDROX/SIMETH 30 ML UNIT-DOSE CUP PO PRN (11:50)
[2020-05-30] MEDS ORDERED: METHOCARBAMOL 500 MG TABLET PO ONE (18:45)
[2020-05-30] MEDS: ACETAMINOPHEN 325 MG TABLET (FP) PO PRN (18:45)
[2020-05-30] MEDS ORDERED: ONDANSETRON *ODT* 4 MG TABLET SL ONE (19:47)
--- NOTE | 2020-05-30 19:50 | PN ---
S Progress Note Note: Vital Signs Temperature 98.3 F 05/30/20 16:45 Pulse Rate 81 05/30/20 16:45 Respiratory Rate 18 05/30/20 05:54 Blood Pressure 132/78 05/30/20 16:45 O2 Sat by Pulse Oximetry (%) 96 05/30/20 14:15 Laboratory Last Values Urine Color Yellow 05/26/20 09:05 Urine Appearance Clear 05/26/20 09:05 Urine pH 8.5 (5.0-8.0) H D 05/26/20 09:05 Ur Specific [place] 1.004 (1.010-1.035) L 05/26/20 09:05 Urine Protein Negative (NEGATIVE) 05/26/20 09:05 Urine Glucose (UA) Negative (NEGATIVE) 05/26/20 09:05 Urine Ketones Negative (NEGATIVE) 05/26/20 09:05 Urine Blood Negative (NEGATIVE) 05/26/20 09:05 Urine Nitrite Negative (NEGATIVE) 05/26/20 09:05 Urine Bilirubin Negative (NEGATIVE) 05/26/20 09:05 Urine Urobilinogen 0.2 mg/dL (0.2-1.0) 05/26/20 09:05 Ur Leukocyte Esterase Negative (NEGATIVE) 05/26/20 09:05 Patient complain of lower abdominal pain and poor appetite Patient is Aox3 ambulating in the unit no acute distress No adventitious breath sounds abdomen non tender + minor pain on left groin with movement - muscular pain lower left lower extremity one time order yesenia continue to monitor
--- NOTE | 2020-05-30 19:52 | PN ---
S Progress Note Note: Vital Signs Temperature 98.3 F 05/30/20 16:45 Pulse Rate 81 05/30/20 16:45 Respiratory Rate 18 05/30/20 05:54 Blood Pressure 132/78 05/30/20 16:45 O2 Sat by Pulse Oximetry (%) 96 05/30/20 14:15 c/o of nausea and vomiting one time dose zofran fluids as tolerated continue to monitor
[2020-05-30] MEDS: THIAMINE HCL 100 MG TABLET (FP) PO SCH (22:27)
[2020-05-30] MEDS ORDERED: PT OWN MED DRAWER 7, Y5N ONE (22:28)
[2020-05-31] MEDS: VITAMINS A AND D TOPICAL OINTMENT 60 GM TUBE TP SCH ×5 (00:16→23:24)
[2020-05-31] MEDS: ALBUTEROL SO4 HFA INHALER IH PRN (00:59)
[2020-05-31] MEDS: IBUPROFEN 400 MG TABLET (FP) PO PRN ×2 (06:00→17:57)
[2020-05-31] MEDS ORDERED: PT OWN MED DRAWER 7, Y5N ONE ×4 (06:02→21:09)
[2020-05-31] MEDS: MAG HYDROX/AL HYDROX/SIMETH 30 ML UNIT-DOSE CUP PO PRN ×2 (06:03→14:53)
[2020-05-31] MEDS: TOLNAFTATE 1% CREAM 15 GM TUBE TP SCH (06:04)
[2020-05-31] MEDS: hydrOXYzine PAMOATE 25 MG CAPSULE (FP) PO SCH ×3 (06:04→14:53)
[2020-05-31] MEDS: NICOTINE 14 MG/24 HOURS TOPICAL PATCH TD SCH (10:11)
[2020-05-31] MEDS: OMEGA-3 ACID ETHYL ESTERS (FATTY-ACIDS) 1 GM CAPSULE (FP) PO SCH ×2 (10:11→21:59)
[2020-05-31] MEDS: CHOLECALCIFEROL (VIT D3) 400 UNIT (10 MCG) TABLET PO SCH (10:12)
[2020-05-31] MEDS: METHYL SALICYLATE/MENTHOL OINT 30 GM TUBE TP SCH ×2 (10:33→21:59)
[2020-05-31] MEDS: PRENATAL VITAMINS W/ FOLIC ACID TABLET (FP) PO SCH (10:33)
--- NOTE | 2020-05-31 15:37 | PN ---
S Progress Note Note: unwitnessed fall alert,oriented x 3 denied head injury no complaint bp 129/72 p77 r19 t96.7 pulse oxi 96% no obvious injury noted impression unwitnessed fall treatment initiate fall protocol 1 to er at [facility] for evaluation patient refused ,signed refusal of treatment close monitoring
[2020-05-31] MEDS ORDERED: hydrOXYzine PAMOATE 25 MG CAPSULE (FP) PO PRN (15:38)
[2020-05-31] MEDS: THIAMINE HCL 100 MG TABLET (FP) PO SCH (22:00)
[2020-06-01] MEDS: TOLNAFTATE 1% CREAM 15 GM TUBE TP SCH (06:45)
[2020-06-01] MEDS: VITAMINS A AND D TOPICAL OINTMENT 60 GM TUBE TP SCH ×3 (06:46→18:32)
[2020-06-01] MEDS: METHYL SALICYLATE/MENTHOL OINT 30 GM TUBE TP SCH ×2 (09:57→21:25)
[2020-06-01] MEDS: PRENATAL VITAMINS W/ FOLIC ACID TABLET (FP) PO SCH (09:57)
[2020-06-01] MEDS: OMEGA-3 ACID ETHYL ESTERS (FATTY-ACIDS) 1 GM CAPSULE (FP) PO SCH ×2 (09:57→21:25)
[2020-06-01] MEDS: NICOTINE 14 MG/24 HOURS TOPICAL PATCH TD SCH (09:58)
[2020-06-01] MEDS: CHOLECALCIFEROL (VIT D3) 400 UNIT (10 MCG) TABLET PO SCH (09:58)
[2020-06-01] MEDS: IBUPROFEN 400 MG TABLET (FP) PO PRN (11:45)
[2020-06-01] MEDS: ACETAMINOPHEN 325 MG TABLET (FP) PO PRN (15:23)
[2020-06-01] MEDS: THIAMINE HCL 100 MG TABLET (FP) PO SCH (21:25)
[2020-06-01] MEDS ORDERED: SUVOREXANT 10 MG TABLET PO PRN (22:00)
[2020-06-02] MEDS: VITAMINS A AND D TOPICAL OINTMENT 60 GM TUBE TP SCH ×4 (00:06→18:20)
[2020-06-02] MEDS: TOLNAFTATE 1% CREAM 15 GM TUBE TP SCH (06:43)
[2020-06-02] MEDS ORDERED: PT OWN MED DRAWER 7, Y5N ONE (09:06)
[2020-06-02] MEDS: CHOLECALCIFEROL (VIT D3) 400 UNIT (10 MCG) TABLET PO SCH (09:30)
[2020-06-02] MEDS: PRENATAL VITAMINS W/ FOLIC ACID TABLET (FP) PO SCH (09:30)
[2020-06-02] MEDS: OMEGA-3 ACID ETHYL ESTERS (FATTY-ACIDS) 1 GM CAPSULE (FP) PO SCH ×2 (09:30→21:13)
[2020-06-02] MEDS: NICOTINE 14 MG/24 HOURS TOPICAL PATCH TD SCH (09:31)
[2020-06-02] MEDS: METHYL SALICYLATE/MENTHOL OINT 30 GM TUBE TP SCH ×2 (09:32→21:13)
[2020-06-02] MEDS: ACETAMINOPHEN 325 MG TABLET (FP) PO PRN (14:51)
[2020-06-02] MEDS: THIAMINE HCL 100 MG TABLET (FP) PO SCH (21:12)
[2020-06-03] MEDS: VITAMINS A AND D TOPICAL OINTMENT 60 GM TUBE TP SCH ×4 (00:07→18:06)
[2020-06-03] MEDS: TOLNAFTATE 1% CREAM 15 GM TUBE TP SCH (06:11)
[2020-06-03] MEDS: OMEGA-3 ACID ETHYL ESTERS (FATTY-ACIDS) 1 GM CAPSULE (FP) PO SCH ×2 (09:51→21:32)
[2020-06-03] MEDS: PRENATAL VITAMINS W/ FOLIC ACID TABLET (FP) PO SCH (09:51)
[2020-06-03] MEDS: CHOLECALCIFEROL (VIT D3) 400 UNIT (10 MCG) TABLET PO SCH (09:51)
[2020-06-03] MEDS: NICOTINE 14 MG/24 HOURS TOPICAL PATCH TD SCH (09:51)
[2020-06-03] MEDS: ALBUTEROL SO4 HFA INHALER IH PRN (09:53)
[2020-06-03] MEDS: TETRAHYDROZOLINE HCL EYE DROPS OD PRN (09:53)
[2020-06-03] MEDS: METHYL SALICYLATE/MENTHOL OINT 30 GM TUBE TP SCH ×2 (09:54→21:32)
--- NOTE | 2020-06-03 15:20 | PN ---
[facility] Progress Note Note: Patient reports sleeping poorly despite taking Belsomra 10 mg/hs. Will increase medication to 20 mg/hs prn for insomnia
[2020-06-03] MEDS: MAG HYDROX/AL HYDROX/SIMETH 30 ML UNIT-DOSE CUP PO PRN (15:21)
[2020-06-03] MEDS: THIAMINE HCL 100 MG TABLET (FP) PO SCH (21:33)
[2020-06-03] MEDS ORDERED: PANTOPRAZOLE 40 MG TABLET PO SCH (22:00)
[2020-06-03] MEDS ORDERED: SUVOREXANT 20 MG TABLET PO PRN (22:00)
[2020-06-04] MEDS: VITAMINS A AND D TOPICAL OINTMENT 60 GM TUBE TP SCH ×3 (01:30→12:23)
[2020-06-04] MEDS ORDERED: PT OWN MED DRAWER 7, Y5N ONE (05:32)
[2020-06-04 06:49] VITALS: BP 125/88; PULSE 94; TEMP 97.6
[2020-06-04] MEDS: TOLNAFTATE 1% CREAM 15 GM TUBE TP SCH (06:56)
[2020-06-04] MEDS: OMEGA-3 ACID ETHYL ESTERS (FATTY-ACIDS) 1 GM CAPSULE (FP) PO SCH (09:58)
[2020-06-04] MEDS: CHOLECALCIFEROL (VIT D3) 400 UNIT (10 MCG) TABLET PO SCH (09:58)
[2020-06-04] MEDS: NICOTINE 14 MG/24 HOURS TOPICAL PATCH TD SCH (09:58)
[2020-06-04] MEDS: PRENATAL VITAMINS W/ FOLIC ACID TABLET (FP) PO SCH (09:58)
[2020-06-04] MEDS ORDERED: PANTOPRAZOLE 40 MG TABLET PO SCH (10:00)
[2020-06-04] MEDS: METHYL SALICYLATE/MENTHOL OINT 30 GM TUBE TP SCH (10:00)
[2020-06-04] MEDS: TETRAHYDROZOLINE HCL EYE DROPS OD PRN (10:08)
--- NOTE | 2020-06-04 14:13 | DS ---
[facility] Rehab Discharge Summary - [facility] Rehab Discharge Summary Admission Date: 05/25/20 Discharge Date: 06/04/20 - History Present History: Alcohol dependence, Opioid dependence Pertinent Past History: Patient is a 59 y.o. 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 Heroin intranasal 9 bags a day, 1 overdose 7 weeks prior to admission. Xanax 5 2mg tabs a day, 10 cigarettes a day. - Discharge Physical Exam Vital Signs: Vital Signs Temperature 97.6 F 06/04/20 05:41 Pulse Rate 94 H 06/04/20 05:41 Respiratory Rate 18 06/04/20 05:41 Blood Pressure 125/88 06/04/20 05:41 O2 Sat by Pulse Oximetry (%) 96 06/04/20 05:41 Pertinent Admission Physical Exam Findings: Physical General Appearance: No Apparent Distress, Respiratory: No Respiratory Distress, Cardiology: Regular Rhythm & Rate. No: JVD Abdominal: +Bowel Sounds, Back: No CVA Tenderness Musculoskeletal:full range of Motion, Gait Steady. Neurological: Fully Oriented, Alert, - Treatment Discharge Condition: Discharge condition good (Medically stable for discharge.), Rehabilitated safely (Patient left prior to scheduled discharge because he states his cousin is picking him up and [place] No specific area or state was provided by the patient.) Hospital Course: patient attended groups, had 1:1 with his counselor, was seen by the psychiatric service. He was adherent to his medication regimen and treatment plan. He had one unwitnessed fall, but he had there were no untoward consequences. - Medication Discharge Medications: Ambulatory Orders Albuterol Sulfate Inhaler - [Ventolin HFA Inhaler -] 1 - 2 inh PO PRN PRN #1 inhaler 05/25/20 - Medication-Assisted Treatment (MAT) Medication-Assisted Treatment (MAT): No - Discharge Instructions Diet, activity, other medical instructions: Diet: as tolerated Activity: as tolerated Other medical instructions: please attend NA and/or AA meetings. - Diagnosis (1) Opioid dependence Current Visit: Yes Status: Acute - Follow-up Referral Minutes to complete discharge: 15 - AMA Did Patient Leave Against Medical Advice: No
== END 2020-06-04 13:25 | disposition home or self-care (01) | DRG 772 ==
LOC: YASAS 13:22 → Y3W 16:34
PROVIDERS: ADMIT Allergy & Immunology; ATTEND Allergy & Immunology
PROC: HZ42ZZZ Group Counseling for Substance Abuse Treatment, Cognitive-Behavioral (ICD-10-PCS; principal; 2020-05-25)
DX: F11.20 Opioid dependence, uncomplicated (principal); F10.20 Alcohol dependence, uncomplicated; F13.20 Sedative, hypnotic or anxiolytic dependence, uncomplicated; F17.210 Nicotine dependence, cigarettes, uncomplicated; F19.282 Other psychoactive substance dependence with psychoactive substance-induced sleep disorder; F19.24 Other psychoactive substance dependence with psychoactive substance-induced mood disorder; G62.9 Polyneuropathy, unspecified; G47.00 Insomnia, unspecified; I10 Essential (primary) hypertension; J44.9 Chronic obstructive pulmonary disease, unspecified; I73.9 Peripheral vascular disease, unspecified; H53.8 Other visual disturbances; I69.898 Other sequelae of other cerebrovascular disease; M79.18 Myalgia, other site; Z88.0 Allergy status to penicillin; Z98.890 Other specified postprocedural states; Z56.0 Unemployment, unspecified
CPT/HCPCS: 81003; Q0162